=== PATIENT | female | born 1975 | race African-American/Black ===

== ENCOUNTER 2019-09-05 13:47 | Inpatient (IN) | payer BC, MEDICAID ==
[~2019-09-05] VITALS: Ht 160 cm; Wt 75.0 kg
[~2019-09-05 13:47] MED LIST: Zosyn 4.5gm in NS 110ml q8h IVPB SCH
[2019-09-05 14:00] VITALS: BP 118/68
--- NOTE | 2019-09-05 14:00 | NUR ---
ED Nurse Note: Pt ambulated to ED d/t chills and fever. Pt denies any cough/sob/sore throat. Pt is AOx4, calm and cooperative. Latest temp at 103F. Placed on bed, safety measures in placed. Droplet isolation precautions in placed. IV site established; patent and kempt, blood and urine specimen collected, sent to labs. Will continue to monitor.
--- NOTE | 2019-09-05 14:10 | NUR ---
ED Nurse Note: ERPA at bedside.
[2019-09-05 14:48] LABS: APPEARANCE,URINE SLIGHTLY CLOUDY; BILIRUBIN, URINE 1+ (NEGATIVE); COLOR,URINE BROWN; GLUCOSE, URINE (UA) NEGATIVE (NEGATIVE); KETONES,URINE 3+ (NEGATIVE); LEUKOCYTE ESTERASE ,URINE 3+ (NEGATIVE); NITRITE,URINE NEGATIVE (NEGATIVE); PH,URINE 5 (4.5-8.0); PROTEIN,URINE 3+ (NEGATIVE); UROBILINOGEN,URINE 1 MG/DL (0.0-1.0)
--- NOTE | 2019-09-05 14:48 | Emergency Room Report ---
History of Present Illness General Chief Complaint: Fever Source: Patient (Velma Esqueda) Present Illness HPI 44-year-old female presents to the emergency department sent by her heart nurse for evaluation of tachycardia, fever and abnormal vaginal bleeding. Patient status post myomectomy and uterine artery embolization on August 07, and Myomectomy last Monday. Pt. reports moderate amount of 8/10 in severity suprapubic pain after both procedures which was not relieved by prescribed medications. Patient reports that she was unable to tolerate follow -up MRI and her doctor ordered her a ultrasound for which he does not have the results for yet. Patient states that today she began having moderate chills. She reports intermittent 5/10 in severity low back pain as well. She denies nausea, vomiting, constipation or diarrhea. She denies vaginal d/c. She states she also started her period right after initial procedure. She denies . Dysuria, hematuria or urinary frequency. (Velma Esqueda) Allergies: Coded Allergies: FLUCONAZOLE (Verified Allergy, Unknown, Rash, 09/05/19) COVID-19 Screening Contact w/high risk pt: No Recent Travel to affected area: No Experienced COVID-19 symptoms?: Yes COVID-19 symptoms experienced: Fever (T>100.4F or >38C) (Velma Esqueda) Patient History Past Medical History: see triage record Past Surgical History: none Pertinent Family History: none Last Menstrual Period: JULY 2019 Now: No Reviewed Nursing Documentation: PMH: Agreed; PSxH: Agreed (Velma Esqueda) Nursing Documentation-PMH Past Medical History: No History, Except For (Velma Esqueda) Review of Systems All Other Systems: negative except mentioned in HPI (Velma Esqueda) Physical Exam Vital Signs Date Time Temp Pulse Resp B/P (MAP) Pulse Ox O2 Delivery O2 Flow Rate FiO2 09/05/19 13:49 102.9 130 18 118/68 (85) 98 Room Air Sp02 EP Interpretation: reviewed, normal General Appearance: no apparent distress, alert, GCS 15, non-toxic Head: normocephalic, atraumatic Eyes: bilateral eye normal inspection, bilateral eye PERRL ENT: hearing grossly normal, normal voice Neck: full range of motion Respiratory: chest non-tender, lungs clear, normal breath sounds, speaking full sentences Cardiovascular #1: regular rate, rhythm Gastrointestinal: normal bowel sounds, soft, distended, tenderness - mild suprapubic and mid lower abdominal TTP. Rectal: deferred Genitourinary: normal inspection, no CVA tenderness Musculoskeletal: back normal, normal range of motion, gait/station normal, non- tender Neurologic: alert, motor strength/tone normal, oriented x3, sensory intact, responsive, speech normal Psychiatric: judgement/insight normal Skin: no rash, normal color (Velma Esqueda) Medical Decision Making PA Attestation Dr. Gracia is my supervising Physician whom patient management has been discussed with. (Velma Esqueda) Diagnostic Impression: Primary Impression: Acute febrile illness Additional Impression: Urinary tract infection Qualified Codes: N30.01 - Acute cystitis with hematuria ER Course 44-year-old female presents to the emergency department sent by her heart nurse for evaluation of tachycardia, fever and abnormal vaginal bleeding. Patient status post myomectomy and uterine artery embolization on August 07, and Myomectomy last Monday. Pt. reports moderate amount of 8/10 in severity suprapubic pain after both procedures which was not relieved by prescribed medications. Patient reports that she was unable to tolerate follow -up MRI and her doctor ordered her a ultrasound for which he does not have the results for yet. Patient states that today she began having moderate chills. She reports intermittent 5/10 in severity low back pain as well. She denies nausea, vomiting, constipation or diarrhea. She denies vaginal d/c. She states she also started her period right after initial procedure. She denies . Dysuria, hematuria or urinary frequency. Ddx considered but are not limited to post-op infection, Diverticulitis, acute appy, diarrhea,UC, PUD, GE, pancreatitis, gallstone, ovarian torsion, ectopic , PID tubo-ovarian abscess just to name a few. Vital signs: are WNL, pt. is afebrile H&PE are most consistent with possible post-op infection. ORDERS: -CBC: wbc's of 11.1 - CMP, LIPASE:Unremarkable -UA: positive for UTI -URINE HCG: negative -blood cultures: Pending -Urine Culture:Pending -COVID-19: Pending -CT abdomen and Pelvis with contrast:Abnormal -CXR: WNL ED INTERVENTIONS: -1 Liter NS -2.37g Zosyn IV DISPOSITION: at this time pt. will be admitted to Dr. Goel for Acute febrile illness. Dr. Goel agreed to admit the pt. and to continue pt. care management. Labs Test 09/05/19 14:30 White Blood Count 11.8 K/UL (4.8-10.8) Red Blood Count 4.17 M/UL (4.20-5.40) Hemoglobin 11.8 G/DL (12.0-16.0) Hematocrit 36.3 % (37.0-47.0) Mean Corpuscular Volume 87 FL (80-99) Mean Corpuscular Hemoglobin 28.3 PG (27.0-31.0) Mean Corpuscular Hemoglobin Concent 32.5 G/DL (32.0-36.0) Red Cell Distribution Width 15.8 % (11.6-14.8) Platelet Count 366 K/UL (150-450) Mean Platelet Volume 4.8 FL (6.5-10.1) Neutrophils (%) (Auto) % (45.0-75.0) Lymphocytes (%) (Auto) % (20.0-45.0) Monocytes (%) (Auto) % (1.0-10.0) Eosinophils (%) (Auto) % (0.0-3.0) Basophils (%) (Auto) % (0.0-2.0) Differential Total Cells Counted 100 Neutrophils % (Manual) 90 % (45-75) Lymphocytes % (Manual) 6 % (20-45) Monocytes % (Manual) 3 % (1-10) Eosinophils % (Manual) 1 % (0-3) Basophils % (Manual) 0 % (0-2) Band Neutrophils 0 % (0-8) Platelet Estimate Adequate Platelet Morphology Normal Anisocytosis 1+ Urine Color Brown Urine Appearance Slightly cloudy Urine pH 5 (4.5-8.0) Urine Specific [place] 1.020 (1.005-1.035) Urine Protein 3+ (NEGATIVE) Urine Glucose (UA) Negative (NEGATIVE) Urine Ketones 3+ (NEGATIVE) Urine Blood 5+ (NEGATIVE) Urine Nitrite Negative (NEGATIVE) Urine Bilirubin 1+ (NEGATIVE) Urine Ictotest Negative (NEGATIVE) Urine Urobilinogen 1 MG/DL (0.0-1.0) Urine Leukocyte Esterase 3+ (NEGATIVE) Urine RBC Tntc /HPF (0 - 2) Urine WBC Tntc /HPF (0 - 2) Urine Squamous Epithelial Cells Few /LPF (NONE/OCC) Urine Bacteria Moderate /HPF (NONE) Sodium Level 139 MMOL/L (136-145) Potassium Level 3.4 MMOL/L (3.5-5.1) Chloride Level 101 MMOL/L (98-107) Carbon Dioxide Level 23 MMOL/L (21-32) Anion Gap 15 mmol/L (5-15) Blood Urea Nitrogen 6 mg/dL (7-18) Creatinine 0.9 MG/DL (0.55-1.30) Estimat Glomerular Filtration Rate > 60 mL/min (>60) Glucose Level 93 MG/DL (74-106) Calcium Level 8.9 MG/DL (8.5-10.1) Total Bilirubin 0.7 MG/DL (0.2-1.0) Aspartate Amino Transf (AST/SGOT) 35 U/L (15-37) Alanine Aminotransferase (ALT/SGPT) 31 U/L (12-78) Alkaline Phosphatase 91 U/L (46-116) Total Protein 8.1 G/DL (6.4-8.2) Albumin 2.7 G/DL (3.4-5.0) Globulin 5.4 g/dL Albumin/Globulin Ratio 0.5 (1.0-2.7) (Velma Esqueda) ER Course Patient was discussed with Dr. Zheng as well as with Dr. Goel. Patient will be admitted to the hospital for further management of acute febrile illness urinary tract infection. Patient does not appear to be significantly likely to have coronavirus infection however sample was sent. Labs Test 09/05/19 14:30 White Blood Count 11.8 K/UL (4.8-10.8) Red Blood Count 4.17 M/UL (4.20-5.40) Hemoglobin 11.8 G/DL (12.0-16.0) Hematocrit 36.3 % (37.0-47.0) Mean Corpuscular Volume 87 FL (80-99) Mean Corpuscular Hemoglobin 28.3 PG (27.0-31.0) Mean Corpuscular Hemoglobin Concent 32.5 G/DL (32.0-36.0) Red Cell Distribution Width 15.8 % (11.6-14.8) Platelet Count 366 K/UL (150-450) Mean Platelet Volume 4.8 FL (6.5-10.1) Neutrophils (%) (Auto) % (45.0-75.0) Lymphocytes (%) (Auto) % (20.0-45.0) Monocytes (%) (Auto) % (1.0-10.0) Eosinophils (%) (Auto) % (0.0-3.0) Basophils (%) (Auto) % (0.0-2.0) Differential Total Cells Counted 100 Neutrophils % (Manual) 90 % (45-75) Lymphocytes % (Manual) 6 % (20-45) Monocytes % (Manual) 3 % (1-10) Eosinophils % (Manual) 1 % (0-3) Basophils % (Manual) 0 % (0-2) Band Neutrophils 0 % (0-8) Platelet Estimate Adequate Platelet Morphology Normal Anisocytosis 1+ Urine Color Brown Urine Appearance Slightly cloudy Urine pH 5 (4.5-8.0) Urine Specific [place] 1.020 (1.005-1.035) Urine Protein 3+ (NEGATIVE) Urine Glucose (UA) Negative (NEGATIVE) Urine Ketones 3+ (NEGATIVE) Urine Blood 5+ (NEGATIVE) Urine Nitrite Negative (NEGATIVE) Urine Bilirubin 1+ (NEGATIVE) Urine Ictotest Negative (NEGATIVE) Urine Urobilinogen 1 MG/DL (0.0-1.0) Urine Leukocyte Esterase 3+ (NEGATIVE) Urine RBC Tntc /HPF (0 - 2) Urine WBC Tntc /HPF (0 - 2) Urine Squamous Epithelial Cells Few /LPF (NONE/OCC) Urine Bacteria Moderate /HPF (NONE) Sodium Level 139 MMOL/L (136-145) Potassium Level 3.4 MMOL/L (3.5-5.1) Chloride Level 101 MMOL/L (98-107) Carbon Dioxide Level 23 MMOL/L (21-32) Anion Gap 15 mmol/L (5-15) Blood Urea Nitrogen 6 mg/dL (7-18) Creatinine 0.9 MG/DL (0.55-1.30) Estimat Glomerular Filtration Rate > 60 mL/min (>60) Glucose Level 93 MG/DL (74-106) Calcium Level 8.9 MG/DL (8.5-10.1) Total Bilirubin 0.7 MG/DL (0.2-1.0) Aspartate Amino Transf (AST/SGOT) 35 U/L (15-37) Alanine Aminotransferase (ALT/SGPT) 31 U/L (12-78) Alkaline Phosphatase 91 U/L (46-116) Total Protein 8.1 G/DL (6.4-8.2) Albumin 2.7 G/DL (3.4-5.0) Globulin 5.4 g/dL Albumin/Globulin Ratio 0.5 (1.0-2.7) (Tim Gracia MD) EKG Diagnostic Results EP Interpretation: Dr. Gracia Rate: tachycardiac - 128 Rhythm: NSR ST Segments: no acute changes ASA given to the pt in ED: No PA Scribe Text This Interpretation was scribed by WILLAM Esqueda. (Velma Esqueda) Chest X-Ray Diagnostic Results Chest X-Ray Diagnostic Results : Chest X-Ray Ordered: Yes # of Views/Limited/Complete: 1 View Indication: Shortness of Breath EP Interpretation: Yes PA Xray: Interpretation reviewed, by supervising MD, and agrees with findings. Interpretation: no consolidation, no effusion, no pneumothorax, no acute cardiopulmonary disease Impression: No acute disease Electronically Signed by: Velma Esqueda PA-C (Velma Esqueda) CT/MRI/US Diagnostic Results CT/MRI/US Diagnostic Results : Imaging Test Ordered: CT ABdomen and Pelvis W. Contrast Impression "Impression: Enlarged uterus with multiple large fibroids. Small amount gas within one of the largest fibroids is nonspecific and is most likely an expected finding given history of uterine fibroid embolization one month prior. Correlate with clinical findings as regards the possibility of endometritis or bile myoma Masslike opacity in the left side of the pelvis, may represent an unusually focally redundant sigmoid but could also represent a mass. Consider comparison with any prior outside imaging that may be available. Pelvic sonography may be useful to clarify Prominent pelvic and retroperitoneal lymph nodes, nonspecific Limited assessment of the GI tract, due to lack of enteric contrast demonstration. Fluid within the colon and small bowel could indicate a component of enteritis or diarrheal illness Findings as noted, including probable left renal cyst, degenerative spondylosis Findings discussed by phone with nurse practitioner eVlma in the emergency room at the time of interpretation" --- per official radiology report- Please see report for specific details. (Velma Esqueda) Last Vital Signs Date Time Temp Pulse Resp B/P (MAP) Pulse Ox O2 Delivery O2 Flow Rate FiO2 09/05/19 13:49 102.9 130 18 118/68 (85) 98 Room Air (Velma Esqueda) Status: unchanged (Tim Gracia MD) Disposition: ADMITTED INPATIENT Condition: Serious Velma Esqueda Sep 05, 2019 14:48 Tim Gracia MD Sep 05, 2019 20:21
[2019-09-05 14:50] LABS: HEMATOCRIT 36.3 % (37.0-47.0); HEMOGLOBIN 11.8 G/DL (12.0-16.0); MEAN CORPUSCULAR VOLUME 87 FL (80-99); PLATELET COUNT 366 K/UL (150-450); RED BLOOD COUNT 4.17 M/UL (4.20-5.40); RED CELL DISTRIBUTION WIDTH 15.8 % (11.6-14.8); WHITE BLOOD COUNT 11.8 K/UL (4.8-10.8)
[2019-09-05 15:12] LABS: ANION GAP 15 mmol/L (5-15); BLOOD UREA NITROGEN 6 mg/dL (7-18); CALCIUM 8.9 MG/DL (8.5-10.1); CARBON DIOXIDE 23 MMOL/L (21-32); CHLORIDE 101 MMOL/L (98-107); CREATININE 0.9 MG/DL (0.55-1.30); POTASSIUM 3.4 MMOL/L (3.5-5.1); SODIUM 139 MMOL/L (136-145)
[2019-09-05] MEDS ORDERED: Acetaminophen 500mg (ES) tab ORAL ONE (15:15)
[2019-09-05] MEDS ORDERED: Omnipaque-300 100ml vial INJ PRN (15:15)
[2019-09-05] MEDS ORDERED: Piperacillin/Tazobactam 2.25 GM in NS 110 ML IVPB ONE (15:15)
[2019-09-05 15:17] LABS: ALANINE AMINOTRANSFERASE 31 U/L (12-78); ALBUMIN 2.7 G/DL (3.4-5.0); ALBUMIN/GLOBULIN RATIO 0.5 (1.0-2.7); ALKALINE PHOSPHATASE 91 U/L (46-116); ASPARTATE AMINO TRANSFERASE 35 U/L (15-37); BILIRUBIN,TOTAL 0.7 MG/DL (0.2-1.0)
--- NOTE | 2019-09-05 15:55 | NUR ---
ED Nurse Note: Covid19 swabs collected, sent to labs.
--- NOTE | 2019-09-05 16:38 | NUR ---
ED Nurse Note: Dr. Flanagan at bedside.
[2019-09-05 17:04] VITALS: BP 118/68
--- NOTE | 2019-09-05 17:29 | Diagnostic Imaging Report ---
Clinical Indication: Abdominal pain, tachycardia, fever and vaginal bleeding. History myomectomy and uterine fibroid embolization one month ago Technique: No oral contrast utilized, per emergency room physician request IV administration nonionic contrast. Venous phase spiral acquisition obtained through the abdomen and pelvis. Multiplanar reconstructions were generated. Total dose length product 341 mGycm. CTDIvol(s) 6.7 mGy. Dose reduction achieved using automated exposure control Comparison: none Findings: The uterus is markedly enlarged, contains multiple low-attenuation lesions consistent with fibroids. Gas bubbles are seen within one of the 2 largest fibroids, and a few gas bubbles are seen within what is probably the endometrial space. The myometrium enhances normally. There is no free cul-de-sac fluid. The lack of enteric contrast limits assessment of the GI tract. Distal esophagus, stomach, duodenum are unremarkable. The proximal colon is fluid-filled. Small bowel loops are upper limits of normal in caliber and several are fluid-filled. No small bowel distention. No free or loculated intraperitoneal gas or fluid is evident. The liver, gallbladder, bile ducts, pancreas, spleen, adrenals, right kidney are unremarkable. Left kidney demonstrates a subcentimeter low-attenuation lesion which is too small to characterize. There are prominent retroperitoneal lymph nodes, measuring up to 1.9 cm long axis dimension. There are also prominent pelvic lymph nodes, predominantly on the left. In the left side of the pelvis, there is a masslike opacity which measures 5 x 3.4 cm. This is very closely related to the sigmoid colon and could just represent an unusually focally redundant sigmoid, but the possibility that this represents a mass should be considered, particularly in view of the prominent nodes The included lung bases are clear. The bones are unremarkable except for degenerative changes of the lumbosacral junction.. Impression: Enlarged uterus with multiple large fibroids. Small amount gas within one of the largest fibroids is nonspecific and is most likely an expected finding given history of uterine fibroid embolization one month prior. Correlate with clinical findings as regards the possibility of endometritis or bile myoma Masslike opacity in the left side of the pelvis, may represent an unusually focally redundant sigmoid but could also represent a mass. Consider comparison with any prior outside imaging that may be available. Pelvic sonography may be useful to clarify Prominent pelvic and retroperitoneal lymph nodes, nonspecific Limited assessment of the GI tract, due to lack of enteric contrast demonstration. Fluid within the colon and small bowel could indicate a component of enteritis or diarrheal illness Findings as noted, including probable left renal cyst, degenerative spondylosis Findings discussed by phone with nurse practitioner Velma in the emergency room at the time of interpretation The CT scanner at [facility] is accredited by the [employer] and the scans are performed using protocols designed to limit radiation exposure to as low as reasonably achievable to attain images of sufficient resolution adequate for diagnostic evaluation.
--- NOTE | 2019-09-05 17:36 | Diagnostic Imaging Report ---
Indication: Shortness of breath and fever Technique: One view of the chest Comparison: none Findings: Lungs and pleural spaces are clear. Heart size is normal. Impression: No acute process
--- NOTE | 2019-09-05 17:53 | NUR ---
ED Nurse Note: Pt on bed, VSS, on RA, NAD noted.
--- NOTE | 2019-09-05 19:09 | NUR ---
ED Nurse Note: Hand-off given to Paolo JAIMES for continuity of care.
--- NOTE | 2019-09-05 19:10 | NUR ---
ED Nurse Note: Received report from Kitty JAIMES. Pt alert and oriented x4, verbally responisve. Not in any distress. Safety a nd comfort provided. Will cont to monitor.
[2019-09-05 19:11] VITALS: BP 115/69
[2019-09-05 19:33] VITALS: BP 109/68
[2019-09-05] MEDS ORDERED: METHOTREXATE2.5 MG PO (21:20)
--- NOTE | 2019-09-05 21:21 | NUR ---
ED Nurse Note: Report given to Leora JAIMES.
--- NOTE | 2019-09-05 21:30 | NUR ---
NURSE NOTES: Report received from Brenda JAIMES. Patient brought to unit via stretcher. Patient safely transfer to bed. Patient noted to have a temperature on 100.6 and a heart rate of 129 BPM. Patient presented to ED in this status. Patient is awake and alert x 4. Patient is able to make needs known. Gordon RN witness patient ambulate, steady on feet. Patient on room air. Denies chest pain and shortness of breath. Denies pain at this time. No complaints at this time. Patient placed on droplet and contact precautions due to covid 19 rule out. Covid 19 test obtained in ED, swabs currently pending. Will contact Doctor Manasa.
[2019-09-05 21:35] VITALS: BP 113/70
--- NOTE | 2019-09-05 21:35 | NUR ---
TRANSFER TO FLOOR: Patient transferred to [facility] unit. Report given to Leora JAIMES. Pt alert and oriented x4, verbally responsive. Ambulatory. Sinus rhythm. No acute distress. IV line on left AC 20g patent and intact. No skin issues. Droplet isolation observed. All belongings sent with the patient.
[2019-09-05 21:46] VITALS: BP 110/75
[2019-09-06] VITALS: BP 125/74
[2019-09-06] MEDS: Azithromycin 500 MG in D5W 275 ML IV SCH (00:18)
--- NOTE | 2019-09-06 01:58 | NUR ---
NURSE NOTES: Paged Doctor Sachin regarding oral temperature of 104.3. Tylenol was administered, patient found to still be febrile at 103.5. Charge nurse Adrian aware. Ice packs given to patient. Await for call back.
--- NOTE | 2019-09-06 02:14 | NUR ---
NURSE NOTES: Received call back from Doctor Sachin. Aware of patients elevated temperature. Informed Gordon JAIMES to continue to administer PRN Tylenol was ordered and to continue to apply ice packs. Gave verbal orders for blood cultures and sputum sample.
[2019-09-06 04:00] VITALS: BP 131/73
[2019-09-06 07:05] LABS: HEMATOCRIT 34.4 % (37.0-47.0); HEMOGLOBIN 11.2 G/DL (12.0-16.0); MEAN CORPUSCULAR VOLUME 86 FL (80-99); PLATELET COUNT 361 K/UL (150-450); RED BLOOD COUNT 3.99 M/UL (4.20-5.40); RED CELL DISTRIBUTION WIDTH 15.8 % (11.6-14.8); WHITE BLOOD COUNT 12.7 K/UL (4.8-10.8)
--- NOTE | 2019-09-06 07:25 | NUR ---
HAND-OFF: Report given to Francy JAIMES.
--- NOTE | 2019-09-06 07:33 | NUR ---
NURSE NOTES: Received report from FIONA Leyva. Patient sleeping. On room air, no signs of distress or labored breathing. IV intact, patent, and infusing fluids. Bed in lowest position with call light in reach. Will continue to monitor.
[2019-09-06 08:00] VITALS: BP 118/69
[2019-09-06] MEDS ORDERED: Piperacillin/Tazobactam 3.375 GM in NS 110 ML IVPB SCH (09:00)
--- NOTE | 2019-09-06 09:39 | NUR ---
*-* NO INSURANCE INFORMATION IN THE BAR UNABLE TO SEND CLINICALS OR REVIEWS *-*
[2019-09-06] MEDS: Piperacillin/Tazobactam 4.5 GM in NS 110 ML IVPB SCH ×2 (10:04→17:33)
[2019-09-06] MEDS: Heparin 5000 units/ml inj SUBQ SCH ×2 (10:05→20:24)
--- NOTE | 2019-09-06 11:54 | NUR ---
CASE MANAGEMENT: INITIAL REVIEW 09/05/2019 44 YO F PRESENTED TO ED FROM HOME CC: FEVER PMHx: myomectomy and uterine artery embolization SI:ACUTE FEBRILE ILLNESS. Acute cystitis with hematuria. t 102.9 HR 130 RR 18 B/P 118/68 SATS 98% ON RA LABS: WBC 11.8 K 3.4 BUN 6 CRP 5.6 IS: NS BOLUS X1 TYLENOL PO X1 ZOSYN IV X2 CXR Impression: No acute disease CT A/P "Impression: Enlarged uterus with multiple large fibroids. Small amount gas within one of the largest fibroids is nonspecific and is most likely an expected finding given history of uterine fibroid embolization one month prior. PATIENT ADMITTED TO MED/SURG 09/05/2019 @ 1605 DCP: HOME CASE MANAGEMENT: REVIEW 09/06/2019 SI:ACUTE FEBRILE ILLNESS. Acute cystitis with hematuria. T 104.2 HR 128 RR 20 B/P 125/74 SATS 97% ON RA LABS: WBC 12.7 DDIMER 1.47 IS:NS @ 100 ML/HR AZITHROMYCIN IV Q24H ZOSYN IV Q8H MED/SURG PLAN OF CARE: BCx SPUTUM CX COVID TESTING URINE CX
[2019-09-06 12:00] VITALS: BP 113/70
--- NOTE | 2019-09-06 14:40 | NUR ---
*-* INSURANCE *-* ALL CLINICALS AND REVIEWS HAVE BEEN FAXED TO: PAUL FAX ALL CLINICALS TO [phone]
--- NOTE | 2019-09-06 15:52 | NUR ---
NURSE NOTES: Received blood culture result from Kimberley from lab. Blood culture showing 1 bottle gram neg rods[address] Goel aware, no new orders. Charge nurse aware.
[2019-09-06 16:00] VITALS: BP 129/75
--- NOTE | 2019-09-06 16:11 | History and Physical ---
Susan Morales JAVA J2EE APPLICATION DEVELOPER 09/06/19 1611: History of Present Illness General Date patient seen: Sep 06, 2019 Time patient seen: 09:39 Reason for Hospitalization: Fever Present Illness HPI 44 years old female with past medical history of uterine fibroids, status post uterine artery embolization status post myomectomy and hysteroscopy, was sent to ER by her network cable installer for evaluation due to fever tachycardia and abdominal abnormal vaginal bleeding. Myomectomy was done last week. Patient was unable to tolerate MRI her doctor ordered ultrasound but still no results. Patient reported chills and fever and intermittent 5 out of 10 low back pain. She denied nausea vomiting constipation she denied vaginal discharge reported nausea 1 episode 12 nonbloody nonbilious vomiting earlier today of diarrhea. Patient gets here. Sometimes. She reported some dysuria but no hematuria. Upon evaluation vital signs reveal fever 102.9 tachycardia with heart rate 130 pulse oximetry was stable on room air laboratory work-up revealed leukocytosis WBC 11.8, hemoglobin 11.8 hematocrit 26.3 platelet count 366. Neutrophils 90% Potassium 3.4 otherwise stable renal parameters electrolytes lactic acid 0.7. CRP 5.6. Serotonin level pending urinalysis revealed pyuria moderate bacteria + 3 leukocyte esterase 1+3 protein. Chest x-ray demonstrated no acute cardiopulmonary pathology. CT of the abdomen and pelvis revealed enlarged uterus with multiple large fibroids. Most likely opacity in the left side of the pelvis representing unusually focally redundant sigmoid but could also represent an mass consider comparison with any prior outside imaging. Prominent pelvic and retroperitoneal lymph nodes nonspecific. Fluid within the colon and small bowel could indicate a component of enteritis or diarrheal illness. In emergency department patient pancultured started on empiric antibiotics urine test was negative received 1 L of fluid and admitted for further management rheumatoid arthritis anemia, Allergies: Coded Allergies: FLUCONAZOLE (Verified Allergy, Unknown, Rash, 09/05/19) COVID-19 Screening Contact w/high risk pt: No Recent Travel to affected area: No Experienced COVID-19 symptoms?: Yes COVID-19 symptoms experienced: Fever (T>100.4F or >38C), Flu-Like Symptoms Medication History Miscellaneous Medications Methotrexate Sodium* (Methotrexate*), 2.5 MG PO, (Reported) Patient History History Provided By: Patient Healthcare decision maker Resuscitation status Full Code Advanced Directive on File Past Medical/Surgical History Past Medical/Surgical History: (1) History of myomectomy (2) Status post embolization of uterine artery (3) Uterine fibroid Review of Systems Constitutional: Reports: chills, fever Eye: Reports: no symptoms ENT: Reports: no symptoms Respiratory: Reports: no symptoms Cardiovascular: Reports: no symptoms Gastrointestinal: Reports: no symptoms Genitourinary: Reports: see HPI Musculoskeletal: Reports: no symptoms, other - hx of RA Skin: Reports: no symptoms Neurological: Reports: no symptoms Endocrine: Reports: no symptoms Hematologic/Lymphatic: Reports: anemia Physical Exam General Appearance: WD/WN, no apparent distress, alert Lines, tubes and drains: peripheral HEENT: normocephalic, atraumatic, anicteric, mucous membranes moist, PERRL Neck: supple, normal inspection Respiratory/Chest: chest wall non-tender, lungs clear, no respiratory distress Cardiovascular/Chest: normal rate, regular rhythm Abdomen: normal bowel sounds, soft, other - mild suprapubic tenderness, no rebound, no guarding Extremities: normal range of motion, no calf tenderness, normal capillary refill Skin Exam: normal pigmentation, warm/dry Neurologic: circulation sales representative II-XII grossly normal, no motor/sensory deficits, alert, oriented x 3 Musculoskeletal: normal muscle bulk Last 24 Hour Vital Signs Date Time Temp Pulse Resp B/P (MAP) Pulse Ox O2 Delivery O2 Flow Rate FiO2 09/06/19 06:55 99.7 09/06/19 06:50 99.7 09/06/19 04:00 103.8 118 20 131/73 (92) 97 09/06/19 00:00 104.2 128 20 125/74 (91) 97 09/05/19 23:18 Room Air 09/05/19 21:46 100.6 129 20 110/75 (87) 96 09/05/19 21:35 100.0 85 19 113/70 99 Room Air 09/05/19 21:35 100.0 85 19 113/70 99 Room Air 09/05/19 19:33 100.0 78 19 109/68 95 Room Air 09/05/19 19:11 102.9 98 20 115/69 100 Room Air 09/05/19 17:04 102.9 100 20 118/68 99 Room Air Intake and Output 09/05/19 09/06/19 19:00 07:00 Intake Total 1210 ml 1255 ml Output Total 60 ml Balance 1210 ml 1195 ml Intake IV Total 1210 ml 775 ml Other 480 ml Output Emesis 60 ml # Voids 1 2 Laboratory Tests Test 09/06/19 05:10 White Blood Count 12.7 K/UL (4.8-10.8) H Red Blood Count 3.99 M/UL (4.20-5.40) L Hemoglobin 11.2 G/DL (12.0-16.0) L Hematocrit 34.4 % (37.0-47.0) L Mean Corpuscular Volume 86 FL (80-99) Mean Corpuscular Hemoglobin 28.0 PG (27.0-31.0) Mean Corpuscular Hemoglobin Concent 32.5 G/DL (32.0-36.0) Red Cell Distribution Width 15.8 % (11.6-14.8) H Platelet Count 361 K/UL (150-450) Mean Platelet Volume 4.9 FL (6.5-10.1) L Neutrophils (%) (Auto) % (45.0-75.0) Lymphocytes (%) (Auto) % (20.0-45.0) Monocytes (%) (Auto) % (1.0-10.0) Eosinophils (%) (Auto) % (0.0-3.0) Basophils (%) (Auto) % (0.0-2.0) Differential Total Cells Counted 100 Neutrophils % (Manual) 88 % (45-75) H Lymphocytes % (Manual) 6 % (20-45) L Monocytes % (Manual) 6 % (1-10) Eosinophils % (Manual) 0 % (0-3) Basophils % (Manual) 0 % (0-2) Band Neutrophils 0 % (0-8) Platelet Estimate Adequate Platelet Morphology Normal Red Blood Cell Morphology Normal D-Dimer 1.47 mg/L FEU (0.00-0.49) H Lactic Acid Level 0.70 mmol/L (0.4-2.0) C-Reactive Protein, Quantitative 5.6 mg/dL (0.00-0.90) H Serotonin Pending Height (Feet): 5 Height (Inches): 3.00 Weight (Pounds): 164 Medications Current Medications Medications (Trade) Dose Ordered Sig/Mitchel Route PRN Reason Start Time Stop Time Status Last Admin Dose Admin Acetaminophen (Tylenol) 650 mg Q6H PRN ORAL Temp >100.5 09/05/19 23:00 10/05/19 22:59 09/06/19 06:20 Acetaminophen/ Hydrocodone Bitart ([place] 5/325) 1 tab Q6H PRN ORAL For Pain 09/05/19 23:00 09/12/19 22:59 Azithromycin 500 mg/Dextrose 275 ml @ 275 mls/hr Q24HRS IV 09/06/19 00:00 09/12/19 00:59 09/06/19 00:18 Barium Sulfate (Readi-Cat 2) 450 ml NOW PRN ORAL Radiology Procedure 09/05/19 15:15 09/07/19 15:02 Heparin Sodium (Porcine) (Heparin 5000 units/ml) 5,000 units EVERY 12 HOURS SUBQ 09/06/19 09:00 10/21/19 08:59 09/06/19 10:05 Iohexol (OMNIPAQUE-300 100ml) 100 ml NOW PRN INJ Radiology Procedure 09/05/19 15:15 09/07/19 15:02 Piperacillin Sod/ Tazobactam Sod 4.5 gm/Sodium Chloride 110 ml @ 27.5 mls/hr Q8H IVPB 09/06/19 09:00 09/12/19 00:59 09/06/19 10:04 Sodium Chloride 1,000 ml @ 100 mls/hr Q10H IV 09/06/19 03:30 10/05/19 22:59 09/06/19 03:46 Assessment/Plan Assessment/Plan: ASSESSMENT 1. Acute febrile illness 2 Sepsis (POA) with GN bacteremia ( due to UTI) 3. GN UTI 4. Sinus tachycardia -resolved 5. Suspected CoVID19 infection 6. Symptomatic uterine fibroids with hx of recent myomectomy, and prior uterine artery emboliZation 7. Nausea, vomiting and diarrhea , possible gastroenteritis 8. Anemia 9. Rheumatoid arthritis 10. Mild hypokalemia [facility] floor fup with REYNA-COV-2 by PCR keep on isolation IVF empiric abx ( Zosyn, Flagyl) fup with cx : BCX + GNR probably due to UTI UCX +GNB ST likely due to fever and possible mild dehydration -resolved ETHNIC STUDIES PROFESSOR consulted, compare results of CT A/P with prior imaging pain management monitor HH with goal to keep Hgb above 7 DVT GI prophylaxis a/emetic prn, monitor for GI symptoms resolution replace K, check K and mg in am case discussed and evaluated by supervising physician Mckay Goel MD 09/06/19 1792: History of Present Illness General Reason for Hospitalization: Fever Present Illness Allergies: Coded Allergies: FLUCONAZOLE (Verified Allergy, Unknown, Rash, 09/05/19) Medication History Miscellaneous Medications Methotrexate Sodium* (Methotrexate*), 2.5 MG PO, (Reported) Assessment/Plan Assessment/Plan: Patient seen and examined, d/w RN and team, agree with plan as outlined about by JAVA J2EE APPLICATION DEVELOPER, reflects out joint assessment. GNR UTI and BSI, continue Zosyn/Azithro, F/U Cx's Elevated D-dimer, F/U Duplex F/U COVID[address] Zheng, imaging reviewed Susan Morales NP Sep 06, 2019 16:11 Mckay Goel MD Sep 06, 2019 16:58
--- NOTE | 2019-09-06 19:20 | NUR ---
NURSE NOTES: Received pt from FIONA Sen. AAO x 4, on room air. Ambulatory, able to make needs known. IV intact and running IVF. Sputum collected. Isolation maintained. No acute distress noted. Bed locked, lowest position, alarm on, side rails up, call light within reach.
--- NOTE | 2019-09-06 19:30 | NUR ---
HAND-OFF: Report given to FIONA eRynoso.
[2019-09-06 20:00] VITALS: BP 130/77
[2019-09-07] VITALS: BP 128/77
[2019-09-07] MEDS: Azithromycin 500 MG in D5W 275 ML IV SCH (00:18)
[2019-09-07] MEDS: Piperacillin/Tazobactam 4.5 GM in NS 110 ML IVPB SCH ×3 (00:54→17:32)
[2019-09-07 04:00] VITALS: BP 138/77
--- NOTE | 2019-09-07 07:22 | NUR ---
NURSE NOTES: Received report from FIONA Reynoso. Patient A&Ox4. On room air, no signs of distress or labored breathing. IV intact, patent, and infusing IV fluids. Bed in lowest position with call light in reach. Will continue with plan of care.
--- NOTE | 2019-09-07 07:28 | NUR ---
HAND-OFF: Report given to FIONA Sen.
[2019-09-07 07:41] LABS: BASOPHILS % (AUTO) 1.4 % (0.0-2.0); HEMATOCRIT 30.9 % (37.0-47.0); HEMOGLOBIN 10.6 G/DL (12.0-16.0); LYMPHOCYTES % (AUTO) 12.1 % (20.0-45.0); MEAN CORPUSCULAR VOLUME 85 FL (80-99); MONOCYTES % (AUTO) 10.9 % (1.0-10.0); NEUTROPHILS % (AUTO) 74.5 % (45.0-75.0); PLATELET COUNT 287 K/UL (150-450); RED BLOOD COUNT 3.64 M/UL (4.20-5.40); RED CELL DISTRIBUTION WIDTH 15.6 % (11.6-14.8); WHITE BLOOD COUNT 7.8 K/UL (4.8-10.8)
[2019-09-07 07:59] LABS: ANION GAP 11 mmol/L (5-15); BLOOD UREA NITROGEN 4 mg/dL (7-18); CALCIUM 8.5 MG/DL (8.5-10.1); CARBON DIOXIDE 23 MMOL/L (21-32); CHLORIDE 105 MMOL/L (98-107); CREATININE 0.7 MG/DL (0.55-1.30); POTASSIUM 3.4 MMOL/L (3.5-5.1); SODIUM 139 MMOL/L (136-145)
[2019-09-07 08:00] VITALS: BP 126/80
--- NOTE | 2019-09-07 08:36 | General Surgery Progress Note ---
General Surgery-Progress Note Subjective Day of Surgery: september 02 Procedure Performed hysteroscopy Symptoms: improved, tolerating diet, voiding well, passing flatus Objective Last 24 Hour Vital Signs Date Time Temp Pulse Resp B/P (MAP) Pulse Ox O2 Delivery O2 Flow Rate FiO2 09/07/19 04:00 98.6 82 20 138/77 (97) 98 09/07/19 00:00 99.1 84 18 128/77 (94) 98 09/06/19 21:00 Room Air 09/06/19 20:53 99.3 09/06/19 20:00 101.7 100 20 130/77 (94) 97 09/06/19 16:00 99.7 110 18 129/75 (93) 97 09/06/19 12:00 99.2 99 18 113/70 (84) 99 09/06/19 09:00 Room Air I&O Intake and Output 09/06/19 09/07/19 19:00 07:00 Intake Total 480 ml 480 ml Balance 480 ml 480 ml Intake Oral 480 ml 480 ml # Voids 3 2 Dressing: dry Wound: clean Drains: none Cardiovascular: RSR Respiratory: clear Abdomen: soft, flat, scaphoid, tenderness, present bowel sounds Extremities: no edema, no tenderness, no cyanosis Laboratory Tests Test 09/07/19 06:50 White Blood Count 7.8 K/UL (4.8-10.8) Red Blood Count 3.64 M/UL (4.20-5.40) L Hemoglobin 10.6 G/DL (12.0-16.0) L Hematocrit 30.9 % (37.0-47.0) L Mean Corpuscular Volume 85 FL (80-99) Mean Corpuscular Hemoglobin 29.1 PG (27.0-31.0) Mean Corpuscular Hemoglobin Concent 34.3 G/DL (32.0-36.0) Red Cell Distribution Width 15.6 % (11.6-14.8) H Platelet Count 287 K/UL (150-450) Mean Platelet Volume 5.0 FL (6.5-10.1) L Neutrophils (%) (Auto) 74.5 % (45.0-75.0) Lymphocytes (%) (Auto) 12.1 % (20.0-45.0) L Monocytes (%) (Auto) 10.9 % (1.0-10.0) H Eosinophils (%) (Auto) 1.0 % (0.0-3.0) Basophils (%) (Auto) 1.4 % (0.0-2.0) Sodium Level 139 MMOL/L (136-145) Potassium Level 3.4 MMOL/L (3.5-5.1) L Chloride Level 105 MMOL/L (98-107) Carbon Dioxide Level 23 MMOL/L (21-32) Anion Gap 11 mmol/L (5-15) Blood Urea Nitrogen 4 mg/dL (7-18) L Creatinine 0.7 MG/DL (0.55-1.30) Estimat Glomerular Filtration Rate > 60 mL/min (>60) Glucose Level 89 MG/DL (74-106) Calcium Level 8.5 MG/DL (8.5-10.1) Magnesium Level 2.1 MG/DL (1.8-2.4) Imaging ct scan, no signs of abscess, bowel ok Additional Comments blood and urine cultures preliminary report. gram negative rods.wbc down today, temperature curve down. Plan Additional Comments iv iron for anemia. await covid test results for removal from isolation. will consult with monday Kumar Zheng MD Sep 07, 2019 08:36
[2019-09-07] MEDS: Heparin 5000 units/ml inj SUBQ SCH ×2 (09:32→21:00)
--- NOTE | 2019-09-07 10:02 | Pulmonology Progress Note ---
Susan Morales DIRECTOR GLOBAL DEVELOPMENT 09/07/19 1002: Assessment/Plan Assessment/Plan ASSESSMENT 1. Acute febrile illness 2 Sepsis (POA) with GN bacteremia ( due to UTI) 3. GN UTI 4. Sinus tachycardia -resolved 5. Suspected CoVID19 infection 6. Symptomatic uterine fibroids with hx of recent myomectomy, and prior uterine artery emboliZation 7. Nausea, vomiting and diarrhea , possible gastroenteritis 8. Anemia 9. Rheumatoid arthritis 10. Mild hypokalemia [facility] CARE [facility] floor fup with REYNA-COV-2 by PCR pending keep on isolation for now IVF empiric abx - Zosyn fup with cx : BCX + GNR probably due to UTI UCX +GNB ST likely due to fever and possible mild dehydration -resolved DRAPERY HEMMER AUTOMATIC consult noted and appreciated compare results of CT A/P with prior imaging pain management monitor HH with goal to keep Hgb above 7 ; started on IV iroan per DRAPERY HEMMER AUTOMATIC DVT GI prophylaxis a/emetic prn, monitor for GI symptoms resolution no nausea, still diarrhea : gastroenteritis vs SE of Zosyn check stool C dif replace K today, Mg stable case discussed and evaluated by supervising physician Subjective Allergies: Coded Allergies: FLUCONAZOLE (Verified Allergy, Unknown, Rash, 09/05/19) Subjective leukocytosis resolved this am afebrile, fever last night, but less still diarrhea 1-2 episodes loose stool, no n/v/ Objective Last 24 Hour Vital Signs Date Time Temp Pulse Resp B/P (MAP) Pulse Ox O2 Delivery O2 Flow Rate FiO2 09/07/19 04:00 98.6 82 20 138/77 (97) 98 09/07/19 00:00 99.1 84 18 128/77 (94) 98 09/06/19 21:00 Room Air 09/06/19 20:53 99.3 09/06/19 20:00 101.7 100 20 130/77 (94) 97 09/06/19 16:00 99.7 110 18 129/75 (93) 97 09/06/19 12:00 99.2 99 18 113/70 (84) 99 Intake and Output 09/06/19 09/07/19 19:00 07:00 Intake Total 480 ml 480 ml Balance 480 ml 480 ml Intake Oral 480 ml 480 ml # Voids 3 2 Objective General Appearance: WD/WN, no apparent distress, alert Lines, tubes and drains: peripheral HEENT: normocephalic, atraumatic, anicteric, mucous membranes moist, PERRL Neck: supple, normal inspection Respiratory/Chest: chest wall non-tender, lungs clear, no respiratory distress Cardiovascular/Chest: normal rate, regular rhythm Abdomen: normal bowel sounds, soft, other - mild suprapubic tenderness, no rebound, no guarding Extremities: normal range of motion, no calf tenderness, normal capillary refill Skin Exam: normal pigmentation, warm/dry Neurologic: blackjack pit boss II-XII grossly normal, no motor/sensory deficits, alert, oriented x 3 Musculoskeletal: normal muscle bulk Microbiology Date/Time Source Procedure Growth Status 09/05/19 15:20 Blood Blood Culture - Preliminary NO GROWTH AFTER 24 HOURS Resulted 09/05/19 14:50 Blood Blood Culture - Preliminary Gram Negative Aramis Resulted 09/05/19 16:00 Nasopharynx Coronavirus COVID-19 PCR (MAC) - Final Complete 09/05/19 14:30 Urine,Clean Catch Urine Culture - Preliminary Gram Negative Aramis Resulted Laboratory Tests 09/07/19 06:50: White Blood Count 7.8, Red Blood Count 3.64L, Hemoglobin 10.6L, Hematocrit 30.9L , Mean Corpuscular Volume 85, Mean Corpuscular Hemoglobin 29.1, Mean Corpuscular Hemoglobin Concent 34.3, Red Cell Distribution Width 15.6H, Platelet Count 287, Mean Platelet Volume 5.0L, Neutrophils (%) (Auto) 74.5, Lymphocytes (%) (Auto) 12.1L, Monocytes (%) (Auto) 10.9H, Eosinophils (%) (Auto ) 1.0, Basophils (%) (Auto) 1.4, Sodium Level 139, Potassium Level 3.4L, Chloride Level 105, Carbon Dioxide Level 23, Anion Gap 11, Blood Urea Nitrogen 4L, Creatinine 0.7, Estimat Glomerular Filtration Rate > 60, Glucose Level 89, Calcium Level 8.5, Magnesium Level 2.1 Current Medications Medications (Trade) Dose Ordered Sig/Mitchel Route PRN Reason Start Time Stop Time Status Last Admin Dose Admin Acetaminophen (Tylenol) 650 mg Q6H PRN ORAL Temp >100.5 09/05/19 23:00 10/05/19 22:59 09/06/19 20:23 Acetaminophen/ Hydrocodone Bitart ([place] 5/325) 1 tab Q6H PRN ORAL For Pain 09/05/19 23:00 09/12/19 22:59 Azithromycin 500 mg/Dextrose 275 ml @ 275 mls/hr Q24HRS IV 09/06/19 00:00 09/12/19 00:59 09/07/19 00:18 Barium Sulfate (Readi-Cat 2) 450 ml NOW PRN ORAL Radiology Procedure 09/05/19 15:15 09/07/19 15:02 Heparin Sodium (Porcine) (Heparin 5000 units/ml) 5,000 units EVERY 12 HOURS SUBQ 09/06/19 09:00 10/21/19 08:59 09/07/19 09:32 Iohexol (OMNIPAQUE-300 100ml) 100 ml NOW PRN INJ Radiology Procedure 09/05/19 15:15 09/07/19 15:02 Iron Sucrose 100 mg/Sodium Chloride 60 ml @ 240 mls/hr BEDTIME IV 09/07/19 21:00 09/11/19 21:14 Ondansetron HCl (Zofran) 4 mg Q6H PRN IVP Nausea & Vomiting 09/06/19 16:00 10/06/19 15:59 Piperacillin Sod/ Tazobactam Sod 4.5 gm/Sodium Chloride 110 ml @ 27.5 mls/hr Q8H IVPB 09/06/19 09:00 09/12/19 00:59 09/07/19 09:30 Sodium Chloride 1,000 ml @ 100 mls/hr Q10H IV 09/06/19 03:30 10/05/19 22:59 09/07/19 00:17 Mckay Goel MD 09/07/19 1952: Assessment/Plan Assessment/Plan Patient seen and examined, d/w DIRECTOR GLOBAL DEVELOPMENT. Agree with above A&P as it reflects our joint reflections. Continue Zosyn, F/U Cx's. Transfer to Surgical Floor Subjective Allergies: Coded Allergies: FLUCONAZOLE (Verified Allergy, Unknown, Rash, 09/05/19) Susan Morales DIRECTOR GLOBAL DEVELOPMENT Sep 07, 2019 10:02 Mckay Goel MD Sep 07, 2019 19:52
[2019-09-07 12:00] VITALS: BP 123/77
[2019-09-07 16:00] VITALS: BP 128/82
--- NOTE | 2019-09-07 19:52 | NUR ---
HAND-OFF: Report given to FIONA Del Valle.
[2019-09-07 20:00] VITALS: BP 141/86
--- NOTE | 2019-09-07 20:29 | NUR ---
NURSE NOTES: RECEIVED PATIENT FROM FIONA GARCIA. PATIENT IS AWAKE, AAOX4, ON ROOM AIR, NO ACUTE DISTRESS NOTED. PATIENT DENIES PAIN AND SOB. IV INTACT AND PATENT. SKIN IS INTACT. BED IS LOCKED AND LOW, BED ALARMS ACTIVE, SIDE RAILS X2 AND CALL LIGHT IS WITHIN REACH. WILL CONTINUE TO MONITOR.
[2019-09-07] MEDS: Iron Sucrose 100 MG in NS 55 ML IV SCH (21:33)
[2019-09-08] VITALS: BP 127/86
[2019-09-08] MEDS: Azithromycin 500 MG in D5W 275 ML IV SCH (00:43)
[2019-09-08] MEDS: Piperacillin/Tazobactam 4.5 GM in NS 110 ML IVPB SCH ×3 (01:00→18:06)
[2019-09-08 04:00] VITALS: BP 138/88
[2019-09-08 07:51] LABS: HEMOGLOBIN 10.3 G/DL (12.0-16.0); LYMPHOCYTES % (AUTO) 16.4 % (20.0-45.0); MEAN CORPUSCULAR VOLUME 86 FL (80-99); MONOCYTES % (AUTO) 12.5 % (1.0-10.0); NEUTROPHILS % (AUTO) 68.1 % (45.0-75.0); PLATELET COUNT 308 K/UL (150-450); RED BLOOD COUNT 3.62 M/UL (4.20-5.40); RED CELL DISTRIBUTION WIDTH 15.9 % (11.6-14.8); WHITE BLOOD COUNT 8.3 K/UL (4.8-10.8)
--- NOTE | 2019-09-08 07:55 | NUR ---
HAND-OFF: Report given to FIONA Mcgee. Endorsed plan of care.
[2019-09-08 08:00] VITALS: BP 126/84
[2019-09-08 08:02] LABS: ALANINE AMINOTRANSFERASE 21 U/L (12-78); ALBUMIN 2.2 G/DL (3.4-5.0); ALBUMIN/GLOBULIN RATIO 0.5 (1.0-2.7); ALKALINE PHOSPHATASE 58 U/L (46-116); ANION GAP 11 mmol/L (5-15); ASPARTATE AMINO TRANSFERASE 25 U/L (15-37); BILIRUBIN,TOTAL 0.2 MG/DL (0.2-1.0); BLOOD UREA NITROGEN 4 mg/dL (7-18); CALCIUM 8.6 MG/DL (8.5-10.1); CARBON DIOXIDE 23 MMOL/L (21-32); CHLORIDE 107 MMOL/L (98-107); CREATININE 0.8 MG/DL (0.55-1.30); POTASSIUM 3.4 MMOL/L (3.5-5.1); SODIUM 141 MMOL/L (136-145)
--- NOTE | 2019-09-08 08:02 | NUR ---
NURSE NOTES: Patient alert x4; on room air, no sing of distress and shortness of breath; no sing of chest pain; IV Left AC NS 100cc running; patient stated no bleeding at this time; side rails up x2, breaks engaged, bed at lowest position; call light within reach; will keep monitoring.
--- NOTE | 2019-09-08 08:34 | Pulmonology Progress Note ---
Susna Morales SENIOR PRINCIPAL 09/08/19 0834: Assessment/Plan Assessment/Plan ASSESSMENT 1. Acute febrile illness 2 Sepsis (POA) with E coli bacteremia 3. Ecoli UTI 4. Sinus tachycardia -resolved 5. Suspected CoVID19 infection -ruled out 6. Symptomatic uterine fibroids with hx of recent myomectomy, and prior uterine artery embolization 7. Nausea, vomiting and diarrhea , possible gastroenteritis -gardually resolving ( stool C dif NGT) 8. Anemia 9. Rheumatoid arthritis 10. Mild hypokalemia [facility]AN OF CARE [facility] floor fup with REYNA-COV-2 by PCR-NGT off isolation IVF empiric abx - Zosyn and Azithromycin fup with cx : BCX + E coli UCX +Ecoli, SCX + GNB repeated BCX pending ST likely due to fever and possible mild dehydration -resolved STAFF DEVELOPMENT EDUCATOR consult noted and appreciated compare results of CT A/P with prior imaging pain management monitor HH with goal to keep Hgb above 7 ; started on IV iron per STAFF DEVELOPMENT EDUCATOR, HH at baseline DVT GI prophylaxis a/emetic prn, monitor for GI symptoms resolution no nausea, l stool becoming more formed, probably gastroenteritis check stool C dif NGT replaced K today, Mg stable, BMP pending still for this am will try to arrange home IV abx case discussed and evaluated by supervising physician Subjective Allergies: Coded Allergies: FLUCONAZOLE (Verified Allergy, Unknown, Rash, 09/05/19) Subjective leukocytosis resolved this am afebrile, fever last night, 101.7 BCX and UCX + Ecoli, stool C dif NGT less diarrhea, becoming more formed stool Objective Last 24 Hour Vital Signs Date Time Temp Pulse Resp B/P (MAP) Pulse Ox O2 Delivery O2 Flow Rate FiO2 09/08/19 04:00 97.3 80 18 138/88 (105) 99 09/08/19 00:00 98.8 71 18 127/86 (100) 99 09/07/19 22:04 98.8 09/07/19 21:00 Room Air 09/07/19 20:00 101.7 99 20 141/86 (104) 99 09/07/19 16:00 99.0 102 18 128/82 (97) 98 09/07/19 12:00 97.2 88 18 123/77 (92) 98 09/07/19 09:00 Room Air Intake and Output 09/07/19 09/08/19 19:00 07:00 Intake Total 480 ml 850.0 ml Balance 480 ml 850.0 ml Intake Oral 480 ml IV Total 850.0 ml # Voids 3 2 Objective General Appearance: WD/WN, no apparent distress, alert Lines, tubes and drains: peripheral HEENT: normocephalic, atraumatic, anicteric, mucous membranes moist, PERRL Neck: supple, normal inspection Respiratory/Chest: chest wall non-tender, lungs clear, no respiratory distress Cardiovascular/Chest: normal rate, regular rhythm Abdomen: normal bowel sounds, soft, nontender Extremities: normal range of motion, no calf tenderness, normal capillary refill Skin Exam: normal pigmentation, warm/dry Neurologic: nuclear engineer II-XII grossly normal, no motor/sensory deficits, alert, oriented x 3 Musculoskeletal: normal muscle bulk Microbiology Date/Time Source Procedure Growth Status 09/05/19 15:20 Blood Blood Culture - Preliminary NO GROWTH AFTER 48 HOURS Resulted 09/05/19 14:50 Blood Blood Culture - Final Escherichia Coli Complete 09/06/19 19:30 Sputum Gram Stain Pending Resulted 09/06/19 19:30 Sputum Culture - Preliminary Gram Negative Bacillus 1 Usual Respiratory Mitzi Resulted 09/05/19 16:00 Nasopharynx Coronavirus COVID-19 PCR (MAC) - Final Complete 09/07/19 18:00 Stool Clostridium difficile Toxin Assay - Final Complete 09/05/19 14:30 Urine,Clean Catch Urine Culture - Final Escherichia Coli Complete Laboratory Tests 09/08/19 07:25: White Blood Count 8.3, Red Blood Count 3.62L, Hemoglobin 10.3L, Hematocrit 31.0L , Mean Corpuscular Volume 86, Mean Corpuscular Hemoglobin 28.4, Mean Corpuscular Hemoglobin Concent 33.2, Red Cell Distribution Width 15.9H, Platelet Count 308, Mean Platelet Volume 4.9L, Neutrophils (%) (Auto) 68.1, Lymphocytes (%) (Auto) 16.4L, Monocytes (%) (Auto) 12.5H, Eosinophils (%) (Auto ) 2.0, Basophils (%) (Auto) 1.0, Sodium Level [Pending], Potassium Level [ Pending], Chloride Level [Pending], Carbon Dioxide Level [Pending], Blood Urea Nitrogen [Pending], Creatinine [Pending], Estimat Glomerular Filtration Rate [ Pending], Glucose Level [Pending], Calcium Level [Pending], Total Bilirubin [ Pending], Aspartate Amino Transf (AST/SGOT) [Pending], Alanine Aminotransferase (ALT/SGPT) [Pending], Alkaline Phosphatase [Pending], Total Protein [Pending], Albumin [Pending], Globulin [Pending] Current Medications Medications (Trade) Dose Ordered Sig/Mitchel Route PRN Reason Start Time Stop Time Status Last Admin Dose Admin Acetaminophen (Tylenol) 650 mg Q6H PRN ORAL Temp >100.5 09/05/19 23:00 10/05/19 22:59 09/07/19 21:34 Acetaminophen/ Hydrocodone Bitart ([place] 5/325) 1 tab Q6H PRN ORAL For Pain 09/05/19 23:00 09/12/19 22:59 Azithromycin 500 mg/Dextrose 275 ml @ 275 mls/hr Q24HRS IV 09/06/19 00:00 09/12/19 00:59 09/08/19 00:43 Heparin Sodium (Porcine) (Heparin 5000 units/ml) 5,000 units EVERY 12 HOURS SUBQ 09/06/19 09:00 10/21/19 08:59 09/07/19 09:32 Iron Sucrose 100 mg/Sodium Chloride 60 ml @ 240 mls/hr BEDTIME IV 09/07/19 21:00 09/11/19 21:14 09/07/19 21:33 Ondansetron HCl (Zofran) 4 mg Q6H PRN IVP Nausea & Vomiting 09/06/19 16:00 10/06/19 15:59 Piperacillin Sod/ Tazobactam Sod 4.5 gm/Sodium Chloride 110 ml @ 27.5 mls/hr Q8H IVPB 09/06/19 09:00 09/12/19 00:59 09/08/19 01:00 Sodium Chloride 1,000 ml @ 100 mls/hr Q10H IV 09/06/19 03:30 10/05/19 22:59 09/08/19 05:30 Mckay Goel MD 09/08/192037: Assessment/Plan Assessment/Plan Patient seen and examined with SENIOR PRINCIPAL. Agree with A&P as outlined above as it reflects our joint deliberations. Subjective Allergies: Coded Allergies: FLUCONAZOLE (Verified Allergy, Unknown, Rash, 09/05/19) Susan Morales NP Sep 08, 2019 08:34 Mckay Goel MD Sep 08, 2019 20:38
[2019-09-08] MEDS: Heparin 5000 units/ml inj SUBQ SCH ×3 (09:00→21:00)
[2019-09-08 12:00] VITALS: BP 129/89
[2019-09-08 16:00] VITALS: BP 130/87
--- NOTE | 2019-09-08 16:38 | NUR ---
NURSE NOTES: Patient transferred from 4E 409-2 to 3E 307-2; report given to FIONA Gilmore; patient's belonging crossed matched and signed by transferring and receiving nurse's; patient is stable upon transfer; patient's anti-biotics and patient's chart given to receiving nurse; plan of care endorsed to the receiving nurse;
--- NOTE | 2019-09-08 16:45 | NUR ---
NURSE NOTES: Patient transferred safely to 3E from 4E via bed, patient is in stable condition, vital signs are stable.
--- NOTE | 2019-09-08 19:20 | NUR ---
HAND-OFF: Report given to GAURAV JAIMES.
--- NOTE | 2019-09-08 19:30 | NUR ---
NURSE NOTES: Received report & pt from FIONA Souza. Pt lying in bed, a&ox4, in room air. No s/s of acute distress & no c/o pain. IV site intact with IVF running as ordered. Plan of care discussed
[2019-09-08 20:45] VITALS: BP 139/87
[2019-09-08] MEDS: Iron Sucrose 100 MG in NS 55 ML IV SCH (20:50)
--- NOTE | 2019-09-08 21:23 | NUR ---
NURSE NOTES: 2044 oral temp 101.7; rechecked @ 2102 with 100.4 oral temp. Tylenol given. @ 2122 temp recheck 98.6
[2019-09-09] VITALS (7 sets, daily range): BP systolic 121–135; BP diastolic 69–88
[2019-09-09] MEDS: Piperacillin/Tazobactam 4.5 GM in NS 110 ML IVPB SCH (00:30)
[2019-09-09 06:44] LABS: HEMOGLOBIN 10.8 G/DL (12.0-16.0); MEAN CORPUSCULAR VOLUME 86 FL (80-99); PLATELET COUNT 357 K/UL (150-450); RED BLOOD COUNT 3.82 M/UL (4.20-5.40); RED CELL DISTRIBUTION WIDTH 16.2 % (11.6-14.8); WHITE BLOOD COUNT 11.2 K/UL (4.8-10.8)
[2019-09-09 07:08] LABS: ALANINE AMINOTRANSFERASE 40 U/L (12-78); ALBUMIN 2.2 G/DL (3.4-5.0); ALBUMIN/GLOBULIN RATIO 0.5 (1.0-2.7); ALKALINE PHOSPHATASE 68 U/L (46-116); ANION GAP 12 mmol/L (5-15); ASPARTATE AMINO TRANSFERASE 42 U/L (15-37); BILIRUBIN,TOTAL 0.2 MG/DL (0.2-1.0); BLOOD UREA NITROGEN 5 mg/dL (7-18); CALCIUM 8.5 MG/DL (8.5-10.1); CARBON DIOXIDE 24 MMOL/L (21-32); CHLORIDE 109 MMOL/L (98-107); CREATININE 0.9 MG/DL (0.55-1.30); POTASSIUM 3.8 MMOL/L (3.5-5.1); SODIUM 144 MMOL/L (136-145)
--- NOTE | 2019-09-09 07:28 | NUR ---
HAND-OFF: Report given to Nela Edmond RN. Pt in stable condition.
--- NOTE | 2019-09-09 07:45 | NUR ---
NURSE NOTES: Received report from FIONA Bates. Pt lying in bed, a&ox4, in room air. No s/s of acute distress & no c/o pain. IV site intact with IVF running as ordered. Call light within reach. Will continue to monitor
--- NOTE | 2019-09-09 07:49 | General Surgery Progress Note ---
General Surgery-Progress Note Subjective Procedure Performed hysteroscopy Chief Complaint: fever Symptoms: improved, tolerating diet, voiding well, BM Objective Last 24 Hour Vital Signs Date Time Temp Pulse Resp B/P (MAP) Pulse Ox O2 Delivery O2 Flow Rate FiO2 09/09/19 04:00 98.1 81 18 134/87 (103) 98 09/09/19 00:00 98.4 87 16 121/83 (96) 99 09/08/19 21:33 98.6 09/08/19 21:23 98.6 09/08/19 21:03 100.4 09/08/19 21:00 Room Air 09/08/19 20:45 101.1 97 16 139/87 (104) 99 09/08/19 16:00 98.1 81 18 130/87 (101) 99 09/08/19 12:00 98.0 87 19 129/89 (102) 98 09/08/19 09:00 Room Air 09/08/19 08:00 97.9 85 18 126/84 (98) 99 I&O Intake and Output 09/08/19 09/09/19 19:00 07:00 Intake Total 1010.0 ml 1500 ml Balance 1010.0 ml 1500 ml Intake Oral 500 ml 400 ml IV Total 510.0 ml 1100 ml Dressing: dry Wound: clean Drains: none Cardiovascular: RSR Respiratory: clear Abdomen: soft, flat, scaphoid, tenderness, present bowel sounds Extremities: edema, tenderness, cyanosis Laboratory Tests Test 09/09/19 05:10 White Blood Count 11.2 K/UL (4.8-10.8) H Red Blood Count 3.82 M/UL (4.20-5.40) L Hemoglobin 10.8 G/DL (12.0-16.0) L Hematocrit 33.0 % (37.0-47.0) L Mean Corpuscular Volume 86 FL (80-99) Mean Corpuscular Hemoglobin 28.4 PG (27.0-31.0) Mean Corpuscular Hemoglobin Concent 32.9 G/DL (32.0-36.0) Red Cell Distribution Width 16.2 % (11.6-14.8) H Platelet Count 357 K/UL (150-450) Mean Platelet Volume 5.2 FL (6.5-10.1) L Neutrophils (%) (Auto) % (45.0-75.0) Lymphocytes (%) (Auto) % (20.0-45.0) Monocytes (%) (Auto) % (1.0-10.0) Eosinophils (%) (Auto) % (0.0-3.0) Basophils (%) (Auto) % (0.0-2.0) Neutrophils % (Manual) Pending Lymphocytes % (Manual) Pending Platelet Estimate Pending Platelet Morphology Pending Sodium Level 144 MMOL/L (136-145) Potassium Level 3.8 MMOL/L (3.5-5.1) Chloride Level 109 MMOL/L (98-107) H Carbon Dioxide Level 24 MMOL/L (21-32) Anion Gap 12 mmol/L (5-15) Blood Urea Nitrogen 5 mg/dL (7-18) L Creatinine 0.9 MG/DL (0.55-1.30) Estimat Glomerular Filtration Rate > 60 mL/min (>60) Glucose Level 96 MG/DL (74-106) Calcium Level 8.5 MG/DL (8.5-10.1) Total Bilirubin 0.2 MG/DL (0.2-1.0) Aspartate Amino Transf (AST/SGOT) 42 U/L (15-37) H Alanine Aminotransferase (ALT/SGPT) 40 U/L (12-78) Alkaline Phosphatase 68 U/L (46-116) Total Protein 7.0 G/DL (6.4-8.2) Albumin 2.2 G/DL (3.4-5.0) L Globulin 4.8 g/dL Albumin/Globulin Ratio 0.5 (1.0-2.7) L Additional Comments temperature curve continues downward. second blood culture done last night Plan Additional Comments pending results of blood culture, oral or iv antibiotics as op. Kumar Zheng MD Sep 09, 2019 07:49
--- NOTE | 2019-09-09 09:03 | Pulmonology Progress Note ---
Susan Morales WORD PROCESSING OPERATOR 09/09/19 0902: Assessment/Plan Assessment/Plan ASSESSMENT 1. Acute febrile illness 2 Sepsis (POA) with E coli bacteremia 3. Ecoli UTI 4. Sinus tachycardia -resolved 5. Suspected CoVID19 infection -ruled out 6. Symptomatic uterine fibroids with hx of recent myomectomy, and prior uterine artery embolization 7. Nausea, vomiting and diarrhea , possible gastroenteritis -gardually resolving ( stool C dif NGT) 8. Anemia 9. Rheumatoid arthritis 10. Mild hypokalemia [facility] CARE [facility] floor REYNA-COV-2 by PCR-NGT off isolation IVF empiric abx - Zosyn and Azithromycin fup with cx : BCX + E coli UCX +Ecoli, SCX + E coli repeated BCX for clearance pending deescalate Zosyn to ceftriaxone, dc Azithromycin ST likely due to fever and possible mild dehydration -resolved REGULATORY ASSOCIATE consult noted and appreciated pain management monitor HH with goal to keep Hgb above 7 ; started on IV iron per REGULATORY ASSOCIATE, HH at baseline till 09/10 x 5 bags DVT /GI prophylaxis a/emetic prn, monitor for GI symptoms resolution no nausea, stool more formed, probably mild gastroenteritis , resolving stool C dif NGT K finally stable this am after replacement, Mg stable 09/06 will try to arrange home IV abx spoke with nurse to try to change a room case discussed and evaluated by supervising physician Subjective Allergies: Coded Allergies: FLUCONAZOLE (Verified Allergy, Unknown, Rash, 09/05/19) Subjective mild leukocytosis this am still with low grade fever last night, 100.4 currently afebrile BCX and UCX + Ecoli, stool C dif NGT no diarrhea, more formed stool reports feeling better no vaginal bleeding frustrated about construction noise distinctly heard in her room Objective Last 24 Hour Vital Signs Date Time Temp Pulse Resp B/P (MAP) Pulse Ox O2 Delivery O2 Flow Rate FiO2 09/09/19 04:00 98.1 81 18 134/87 (103) 98 09/09/19 00:00 98.4 87 16 121/83 (96) 99 09/08/19 21:33 98.6 09/08/19 21:23 98.6 09/08/19 21:03 100.4 09/08/19 21:00 Room Air 09/08/19 20:45 101.1 97 16 139/87 (104) 99 09/08/19 16:00 98.1 81 18 130/87 (101) 99 09/08/19 12:00 98.0 87 19 129/89 (102) 98 09/08/19 09:00 Room Air Intake and Output 09/08/19 09/09/19 19:00 07:00 Intake Total 1010.0 ml 1500 ml Balance 1010.0 ml 1500 ml Intake Oral 500 ml 400 ml IV Total 510.0 ml 1100 ml Objective General Appearance: WD/WN, no apparent distress, alert Lines, tubes and drains: peripheral HEENT: normocephalic, atraumatic, anicteric, mucous membranes moist, PERRL Neck: supple, normal inspection Respiratory/Chest: chest wall non-tender, lungs clear, no respiratory distress Cardiovascular/Chest: normal rate, regular rhythm Abdomen: normal bowel sounds, soft, nontender Extremities: normal range of motion, no calf tenderness, normal capillary refill Skin Exam: normal pigmentation, warm/dry Neurologic: human resources team member II-XII grossly normal, no motor/sensory deficits, alert, oriented x 3 Musculoskeletal: normal muscle bulk Microbiology Date/Time Source Procedure Growth Status 09/06/19 19:30 Sputum Gram Stain - Final Complete 09/06/19 19:30 Sputum Culture - Final Escherichia Coli Usual Respiratory Mitzi Complete 09/07/19 18:00 Stool Clostridium difficile Toxin Assay - Final Complete Laboratory Tests 09/09/19 05:10: White Blood Count 11.2H, Red Blood Count 3.82L, Hemoglobin 10.8L, Hematocrit 33.0L, Mean Corpuscular Volume 86, Mean Corpuscular Hemoglobin 28.4, Mean Corpuscular Hemoglobin Concent 32.9, Red Cell Distribution Width 16.2H, Platelet Count 357, Mean Platelet Volume 5.2L, Neutrophils (%) (Auto) , Lymphocytes (%) (Auto) , Monocytes (%) (Auto) , Eosinophils (%) (Auto) , Basophils (%) (Auto) , Neutrophils % (Manual) [Pending], Lymphocytes % (Manual) [Pending], Platelet Estimate [Pending], Platelet Morphology [Pending], Sodium Level 144, Potassium Level 3.8, Chloride Level 109H, Carbon Dioxide Level 24, Anion Gap 12, Blood Urea Nitrogen 5L, Creatinine 0.9, Estimat Glomerular Filtration Rate > 60, Glucose Level 96, Calcium Level 8.5, Total Bilirubin 0.2, Aspartate Amino Transf (AST/SGOT) 42H, Alanine Aminotransferase (ALT/SGPT) 40, Alkaline Phosphatase 68, Total Protein 7.0, Albumin 2.2L, Globulin 4.8, Albumin/ Globulin Ratio 0.5L Current Medications Medications (Trade) Dose Ordered Sig/Mitchel Route PRN Reason Start Time Stop Time Status Last Admin Dose Admin Acetaminophen (Tylenol) 650 mg Q6H PRN ORAL Temp >100.5 09/05/19 23:00 10/05/19 22:59 09/08/19 21:03 Acetaminophen/ Hydrocodone Bitart ([place] 5/325) 1 tab Q6H PRN ORAL For Pain 09/05/19 23:00 09/12/19 22:59 Heparin Sodium (Porcine) (Heparin 5000 units/ml) 5,000 units EVERY 12 HOURS SUBQ 09/06/19 09:00 10/21/19 08:59 09/07/19 09:32 Iron Sucrose 100 mg/Sodium Chloride 60 ml @ 240 mls/hr BEDTIME IV 09/07/19 21:00 09/11/19 21:14 09/08/19 20:50 Ondansetron HCl (Zofran) 4 mg Q6H PRN IVP Nausea & Vomiting 09/06/19 16:00 10/06/19 15:59 Piperacillin Sod/ Tazobactam Sod 4.5 gm/Sodium Chloride 110 ml @ 27.5 mls/hr Q8H IVPB 09/06/19 09:00 09/12/19 00:59 09/09/19 00:30 Sodium Chloride 1,000 ml @ 100 mls/hr Q10H IV 09/06/19 03:30 10/05/19 22:59 09/09/19 00:30 Mckay Goel MD 09/09/19 1931: Assessment/Plan Assessment/Plan Patient seen and examined with WORD PROCESSING OPERATOR, agree with A&P as it reflects our joint deliberations. Abx switched to CTx, if jean carlos and stable can be D/C'd on PO Keflex in am. D/W Dr. Zheng and RN @ bedside. Subjective Allergies: Coded Allergies: FLUCONAZOLE (Verified Allergy, Unknown, Rash, 09/05/19) Susan Morales WORD PROCESSING OPERATOR Sep 09, 2019 09:02 Mckay Goel MD Sep 09, 2019 19:31
[2019-09-09] MEDS: cefTRIAXone 2 GM in D5W 55 ML IVPB SCH (09:52)
[2019-09-09] MEDS: Heparin 5000 units/ml inj SUBQ SCH ×2 (09:53→20:15)
--- NOTE | 2019-09-09 10:47 | NUR ---
*-* INSURANCE *-* UPDATED CLINICALS AND REVIEWS HAVE BEEN FAXED TO: [facility] FAX ALL CLINICALS TO [phone]
--- NOTE | 2019-09-09 13:23 | Diagnostic Imaging Report ---
Indication: Lower extremity pain Technique: Grayscale and duplex images of the bilateral lower extremity veins Comparison: None Findings: Bilaterally, grayscale and duplex images demonstrate no evidence of intraluminal thrombus. Normal phasic Doppler waveforms, demonstrating normal augmentation response and no evidence of valvular insufficiency. Greater saphenous vein(s) and tibial veins are patent. Normal compressibility. Impression: Negative for evidence of lower extremity deep venous thrombosis bilaterally
[2019-09-09] MEDS: HYDROcodone/Acetamin 5/325 tab ORAL PRN (16:07)
--- NOTE | 2019-09-09 19:46 | NUR ---
NURSE NOTES: Report received from FIONA Guo. Patient in stable condition.
--- NOTE | 2019-09-09 19:56 | NUR ---
HAND-OFF: Report given to FIONA Mandel.
[2019-09-09] MEDS: Iron Sucrose 100 MG in NS 55 ML IV SCH (20:14)
--- NOTE | 2019-09-09 23:19 | NUR ---
NURSE NOTES: At 1999, patient has temperature of 100.3. Gave tylenol 650 mg. Reassessed after about an hour, patient presents temperature of 101. Patient does not show any signs of distress. Cooling measures such as ice packs and a fan. Will reassess temperature and continue to monitor.
[2019-09-10 04:00] VITALS: BP 134/81
[2019-09-10 06:32] LABS: BASOPHILS % (AUTO) 0.9 % (0.0-2.0); EOSINOPHILS % (AUTO) 1.3 % (0.0-3.0); HEMATOCRIT 32.5 % (37.0-47.0); HEMOGLOBIN 10.7 G/DL (12.0-16.0); LYMPHOCYTES % (AUTO) 14.4 % (20.0-45.0); MEAN CORPUSCULAR VOLUME 86 FL (80-99); MONOCYTES % (AUTO) 6.7 % (1.0-10.0); NEUTROPHILS % (AUTO) 76.7 % (45.0-75.0); PLATELET COUNT 392 K/UL (150-450); RED BLOOD COUNT 3.77 M/UL (4.20-5.40); RED CELL DISTRIBUTION WIDTH 16.1 % (11.6-14.8); WHITE BLOOD COUNT 13.6 K/UL (4.8-10.8)
[2019-09-10 07:25] LABS: ALANINE AMINOTRANSFERASE 37 U/L (12-78); ALBUMIN 2.1 G/DL (3.4-5.0); ALBUMIN/GLOBULIN RATIO 0.4 (1.0-2.7); ALKALINE PHOSPHATASE 66 U/L (46-116); ANION GAP 10 mmol/L (5-15); ASPARTATE AMINO TRANSFERASE 35 U/L (15-37); BILIRUBIN,TOTAL 0.1 MG/DL (0.2-1.0); BLOOD UREA NITROGEN 4 mg/dL (7-18); CALCIUM 8.1 MG/DL (8.5-10.1); CARBON DIOXIDE 25 MMOL/L (21-32); CHLORIDE 109 MMOL/L (98-107); CREATININE 0.7 MG/DL (0.55-1.30); POTASSIUM 3.7 MMOL/L (3.5-5.1); SODIUM 144 MMOL/L (136-145)
--- NOTE | 2019-09-10 07:45 | NUR ---
NURSE NOTES: Received report from FIONA Mandel. Pt in bed with no acute respiratory distress. Pt denies any pain at this time. IV site intact. Bed in lowest position and locked. Will continue to monitor.
[2019-09-10 08:00] VITALS: BP 127/80
[2019-09-10] MEDS: Heparin 5000 units/ml inj SUBQ SCH ×2 (08:55→21:15)
[2019-09-10] MEDS: cefTRIAXone 2 GM in D5W 55 ML IVPB SCH (08:58)
--- NOTE | 2019-09-10 09:06 | Pulmonology Progress Note ---
Morales Susan BAND INSTRUMENT REPAIRER 09/10/19 0906: Assessment/Plan Assessment/Plan ASSESSMENT 1. Acute febrile illness 2 Sepsis (POA) with E coli bacteremia 3. Ecoli UTI 4. Sinus tachycardia -resolved 5. Suspected CoVID19 infection -ruled out 6. Symptomatic uterine fibroids with hx of recent myomectomy, and prior uterine artery embolization 7. Nausea, vomiting and diarrhea , possible gastroenteritis -gardually resolving ( stool C dif NGT) 8. Anemia 9. Rheumatoid arthritis 10. Mild hypokalemia [facility] floor REYNA-COV-2 by PCR-NGT off isolation IVF empiric abx - Zosyn and Azithromycin fup with cx : BCX + E coli UCX +Ecoli, SCX + E coli repeated BCX NGTD Zosyn deescalate to ceftriaxone, Azithromycin was prior dc still with fevers, leuk trending up will get stat CT A/P with IV contrast r/o abscess ID consult MATERIAL CHASER follows ST likely due to fever and possible mild dehydration -resolved pain management monitor HH with goal to keep Hgb above 7 ; started on IV iron per MATERIAL CHASER, HH at baseline till 09/10 x 5 bags DVT /GI prophylaxis a/emetic prn, monitor for GI symptoms resolution no nausea, stool more formed, probably mild gastroenteritis , resolving stool C dif NGT K stable after replacement, Mg stable 09/06 case discussed and evaluated by supervising physician Subjective Allergies: Coded Allergies: FLUCONAZOLE (Verified Allergy, Unknown, Rash, 09/05/19) Subjective fever this am 101 leukocytosis with trend up BCX and UCX + Ecoli, stool C dif NGT repeated BCX NGTD no diarrhea, formed stool reports feeling better no vaginal bleeding transferred to 3 rd floor yesterday, now happy about the room Objective Last 24 Hour Vital Signs Date Time Temp Pulse Resp B/P (MAP) Pulse Ox O2 Delivery O2 Flow Rate FiO2 09/10/19 04:00 98.6 93 20 134/81 (98) 100 09/09/19 23:18 101.0 98 20 134/88 (103) 97 09/09/19 22:09 101.0 09/09/19 21:00 Room Air 09/09/19 20:00 100.3 102 20 132/78 (96) 99 09/09/19 16:37 98.5 09/09/19 16:00 98.5 93 20 131/86 (101) 100 09/09/19 12:00 98.5 89 20 128/69 (88) 99 Intake and Output 09/09/19 09/10/19 19:00 07:00 Intake Total 1300 ml 1300 ml Balance 1300 ml 1300 ml Intake Oral 600 ml 200 ml IV Total 700 ml 1100 ml # Voids 4 3 Objective General Appearance: WD/WN, no apparent distress, alert Lines, tubes and drains: peripheral HEENT: normocephalic, atraumatic, anicteric, mucous membranes moist, PERRL Neck: supple, normal inspection Respiratory/Chest: chest wall non-tender, lungs clear, no respiratory distress Cardiovascular/Chest: normal rate, regular rhythm Abdomen: normal bowel sounds, soft, nontender Extremities: normal range of motion, no calf tenderness, normal capillary refill Skin Exam: normal pigmentation, warm/dry Neurologic: auto overhauler II-XII grossly normal, no motor/sensory deficits, alert, oriented x 3 Musculoskeletal: normal muscle bulk Microbiology Date/Time Source Procedure Growth Status 09/08/19 07:30 Blood Blood Culture - Preliminary NO GROWTH AFTER 24 HOURS Resulted 09/08/19 07:25 Blood Blood Culture - Preliminary NO GROWTH AFTER 24 HOURS Resulted 09/07/19 18:00 Stool Clostridium difficile Toxin Assay - Final Complete Laboratory Tests 09/10/19 05:00: White Blood Count 13.6H, Red Blood Count 3.77L, Hemoglobin 10.7L, Hematocrit 32.5L, Mean Corpuscular Volume 86, Mean Corpuscular Hemoglobin 28.5, Mean Corpuscular Hemoglobin Concent 33.0, Red Cell Distribution Width 16.1H, Platelet Count 392, Mean Platelet Volume 4.7L, Neutrophils (%) (Auto) 76.7H, Lymphocytes (%) (Auto) 14.4L, Monocytes (%) (Auto) 6.7, Eosinophils (%) (Auto) 1.3, Basophils (%) (Auto) 0.9, Sodium Level 144, Potassium Level 3.7, Chloride Level 109H, Carbon Dioxide Level 25, Anion Gap 10, Blood Urea Nitrogen 4L, Creatinine 0.7, Estimat Glomerular Filtration Rate > 60, Glucose Level 89, Calcium Level 8.1L, Total Bilirubin 0.1L, Aspartate Amino Transf (AST/SGOT) 35, Alanine Aminotransferase (ALT/SGPT) 37, Alkaline Phosphatase 66, Total Protein 6.9, Albumin 2.1L, Globulin 4.8, Albumin/Globulin Ratio 0.4L Current Medications Medications (Trade) Dose Ordered Sig/Mitchel Route PRN Reason Start Time Stop Time Status Last Admin Dose Admin Acetaminophen (Tylenol) 650 mg Q6H PRN ORAL Temp >100.5 09/05/19 23:00 10/05/19 22:59 09/09/19 21:39 Acetaminophen/ Hydrocodone Bitart ([place] 5/325) 1 tab Q6H PRN ORAL For Pain 09/05/19 23:00 09/12/19 22:59 09/09/19 16:07 Ceftriaxone Sodium 2 gm/ Dextrose 55 ml @ 110 mls/hr Q24H IVPB 09/09/19 09:00 09/16/19 08:59 09/10/19 08:58 Heparin Sodium (Porcine) (Heparin 5000 units/ml) 5,000 units EVERY 12 HOURS SUBQ 09/06/19 09:00 10/21/19 08:59 09/10/19 08:55 Iron Sucrose 100 mg/Sodium Chloride 60 ml @ 240 mls/hr BEDTIME IV 09/07/19 21:00 09/11/19 21:14 09/09/19 20:14 Ondansetron HCl (Zofran) 4 mg Q6H PRN IVP Nausea & Vomiting 09/06/19 16:00 10/06/19 15:59 Sodium Chloride 1,000 ml @ 100 mls/hr Q10H IV 09/06/19 03:30 10/05/19 22:59 09/10/19 06:44 Mckay Goel MD 09/10/19 1733: Assessment/Plan Assessment/Plan Patient seen and examined with BAND INSTRUMENT REPAIRER, agree with A&P as it reflects our joint deliberations. ID consult appreciated. Ongoing d/w Dr. Zheng ----> possible OR tommorrow. Subjective Allergies: Coded Allergies: FLUCONAZOLE (Verified Allergy, Unknown, Rash, 09/05/19) Susan Morales BAND INSTRUMENT REPAIRER Sep 10, 2019 09:06 Mckay Goel MD Sep 10, 2019 17:33
[2019-09-10] MEDS ORDERED: Omnipaque-300 100ml vial INJ PRN (09:15)
[2019-09-10 12:00] VITALS: BP 121/67
--- NOTE | 2019-09-10 12:47 | NUR ---
CASE MANAGEMENT: REVIEW 09/07/2019 SI:S/P HYSTEROSCOPY ACUTE FEBRILE ILLNESS. SEPSIS WITH GN BACTEREMIA (DUE TO UTI) 101.7 99 20 141/86 99% ON RA K+ 3.4 BUN 4 IS:IV NS @100 ML/HR IV ZOSYN Q8HR IV VENOFER X5BAGS HEPARIN SQ BID TYLENOL PO Q6HR/PRN \: 3E MED/SURG DCP: HOME WHEN STABLE PLAN: CONTROL FEVERS CONTROL DIARRHEA CASE MANAGEMENT: REVIEW 09/08/2019 SI:ACUTE FEBRILE ILLNESS. Acute cystitis with hematuria. 101.1 97 16 139/87 99% ON RA ALBUMIN 2.1 IS:IV NS @100 ML/HR IV ZOSYN Q8HR IV VENOFER X5BAGS HEPARIN SQ BID TYLENOL PO Q6HR/PRN \: 3E MED/SURG DCP: HOME WHEN STABLE PLAN: BLOOD CX IN PROGRESS COVID-19 NEGATIVE CASE MANAGEMENT: REVIEW 09/09/2019 SI:ACUTE FEBRILE ILLNESS. Acute cystitis with hematuria. 101.1 98 20 134/88 97% ON RA WBC 11.2 ALBUMIN 2.2 IS:IV NS @100 ML/HR IV ROCEPHIN QD IV VENOFER X5BAGS HEPARIN SQ BID TYLENOL PO Q6HR/PRN \: 3E MED/SURG DCP: HOME WHEN STABLE PLAN: SWITCH IV MEDICATION TO ROCEPHIN CONTROL FEVERS CASE MANAGEMENT: REVIEW 09/10/2019 SI:ACUTE FEBRILE ILLNESS. Acute cystitis with hematuria. 98.6 93 20 134/81 100% ON RA WBC 13.6 ALBUMIN 2.1 IS:IV NS @100 ML/HR IV ZOSYN Q8HR IV VENOFER X5BAGS HEPARIN SQ BID TYLENOL PO Q6HR/PRN NORCO PO Q6HR/PRN \: 3E MED/SURG DCP: HOME WHEN STABLE PLAN: MONITOR WBC- INCREASING AT THIS TIME NO RECORDED FEVER
--- NOTE | 2019-09-10 13:41 | NUR ---
*-* INSURANCE *-* UPDATED CLINICALS AND REVIEWS HAVE BEEN FAXED TO: [facility] FAX ALL CLINICALS TO [phone]
--- NOTE | 2019-09-10 13:57 | NUR ---
NURSE NOTES: Came back to the unit from CT with stable condition.
--- NOTE | 2019-09-10 15:05 | Diagnostic Imaging Report ---
Clinical Indication: Abdominal pain. History of prior uterine fibroid embolization Technique: Patient ingested oral contrast IV administration nonionic contrast. Venous phase spiral acquisition obtained through the abdomen and pelvis. Multiplanar reconstructions were generated. Total dose length product 392 mGycm. CTDIvol(s) 8 mGy. Dose reduction achieved using automated exposure control Comparison: 09/05/2019 Findings: Again demonstrated is an enlarged uterus with multiple low-attenuation lesions that presumably represent infarcted fibroids. One of the larger fibroids again contains multiple gas bubbles. However, the amount of gas is overall decreased from the prior study. The most cephalad gas bubble may be within the endometrial space, but this likewise appears diminished from the prior exam. Currently evident, however, not evident previously is a single gas bubble at the expected level of the endocervical canal. The overall size of the uterus and fibroids is unchanged. The uterine myometrium appears to enhance normally. Contrast opacifies most of the colon, which is normal in caliber without evidence of wall thickening. As previously, there is a masslike area in the left side of the pelvis. This probably just represents a combination of redundant tortuous colon and possibly the left ovary. There is focal prominence in caliber and possible wall thickening of a single short segment of proximal jejunum. The small bowel is otherwise normal in caliber without wall thickening. The distal esophagus, stomach, duodenum are unremarkable. No free or loculated intraperitoneal gas or fluid. There is a tiny umbilical hernia which contains only fat. The liver, gallbladder, bile ducts, pancreas, spleen, adrenals are unremarkable. There are prominent but not frankly enlarged retroperitoneal nodes. No pelvic adenopathy. The included lung bases demonstrate some atelectatic changes bilaterally. The bones demonstrate degenerative spondylosis changes. Impression: Decreased gas within one of the larger infarcted fibroids. This suggests resolving expected postoperative gas. No evidence of active infection elsewhere. Prominent left pelvic structure. This probably just represents a prominent left ovary in combination with a loop of colon. Prominent but not frankly enlarged retroperitoneal nodes Minimal basilar atelectasis Mild degenerative spondylosis Incidental finding of small fat-containing abdominal hernia The CT scanner at [facility] is accredited by the [employer] and the scans are performed using protocols designed to limit radiation exposure to as low as reasonably achievable to attain images of sufficient resolution adequate for diagnostic evaluation.
--- NOTE | 2019-09-10 15:55 | NUR ---
NURSE NOTES: Spoke to regarding patient and new order received. Order read back and carried out.
[2019-09-10] MEDS ORDERED: Zolpidem 5mg tab ORAL PRN (15:56)
[2019-09-10 16:00] VITALS: BP 131/65
--- NOTE | 2019-09-10 17:32 | NUR ---
NURSE NOTES: Spoke to regarding patient and received consent order for surgery. Order noted and carried out.
--- NOTE | 2019-09-10 17:42 | Infectious Diseases Prog Note ---
Assessment/Plan Assessment/Plan Full consult dictated: A) 1) e.coli bacteremia - status post uterine artery embolization status post myomectomy and hysteroscopy 2) e.coli in urine and sputum culture - ? uti 3) sepsis, leukocytosis, fevers 4) chest x-ray - negative P) 1) change to zosyn 2) for myomectomy tomorrow 3) surveillance cultures 4) monitor labs 5) d/w Dr. Goel and Dr. Zheng Subjective Allergies: Coded Allergies: FLUCONAZOLE (Verified Allergy, Unknown, Rash, 09/05/19) Objective Vital Signs Last 24 Hour Vital Signs Date Time Temp Pulse Resp B/P (MAP) Pulse Ox O2 Delivery O2 Flow Rate FiO2 09/10/19 16:00 98.0 80 20 131/65 (87) 98 09/10/19 12:00 98.2 85 18 121/67 (85) 99 09/10/19 09:00 Room Air 09/10/19 08:00 98.6 76 18 127/80 (96) 99 09/10/19 04:00 98.6 93 20 134/81 (98) 100 09/09/19 23:18 101.0 98 20 134/88 (103) 97 09/09/19 22:09 101.0 09/09/19 21:00 Room Air 09/09/19 20:00 100.3 102 20 132/78 (96) 99 Height (Feet): 5 Height (Inches): 3.00 Weight (Pounds): 164 Microbiology Date/Time Source Procedure Growth Status 09/08/19 07:30 Blood Blood Culture - Preliminary NO GROWTH AFTER 24 HOURS Resulted 09/08/19 07:25 Blood Blood Culture - Preliminary NO GROWTH AFTER 24 HOURS Resulted 09/07/19 18:00 Stool Clostridium difficile Toxin Assay - Final Complete Laboratory Tests Test 09/10/19 05:00 White Blood Count 13.6 K/UL (4.8-10.8) H Red Blood Count 3.77 M/UL (4.20-5.40) L Hemoglobin 10.7 G/DL (12.0-16.0) L Hematocrit 32.5 % (37.0-47.0) L Mean Corpuscular Volume 86 FL (80-99) Mean Corpuscular Hemoglobin 28.5 PG (27.0-31.0) Mean Corpuscular Hemoglobin Concent 33.0 G/DL (32.0-36.0) Red Cell Distribution Width 16.1 % (11.6-14.8) H Platelet Count 392 K/UL (150-450) Mean Platelet Volume 4.7 FL (6.5-10.1) L Neutrophils (%) (Auto) 76.7 % (45.0-75.0) H Lymphocytes (%) (Auto) 14.4 % (20.0-45.0) L Monocytes (%) (Auto) 6.7 % (1.0-10.0) Eosinophils (%) (Auto) 1.3 % (0.0-3.0) Basophils (%) (Auto) 0.9 % (0.0-2.0) Sodium Level 144 MMOL/L (136-145) Potassium Level 3.7 MMOL/L (3.5-5.1) Chloride Level 109 MMOL/L (98-107) H Carbon Dioxide Level 25 MMOL/L (21-32) Anion Gap 10 mmol/L (5-15) Blood Urea Nitrogen 4 mg/dL (7-18) L Creatinine 0.7 MG/DL (0.55-1.30) Estimat Glomerular Filtration Rate > 60 mL/min (>60) Glucose Level 89 MG/DL (74-106) Calcium Level 8.1 MG/DL (8.5-10.1) L Total Bilirubin 0.1 MG/DL (0.2-1.0) L Aspartate Amino Transf (AST/SGOT) 35 U/L (15-37) Alanine Aminotransferase (ALT/SGPT) 37 U/L (12-78) Alkaline Phosphatase 66 U/L (46-116) Total Protein 6.9 G/DL (6.4-8.2) Albumin 2.1 G/DL (3.4-5.0) L Globulin 4.8 g/dL Albumin/Globulin Ratio 0.4 (1.0-2.7) L Current Medications Medications (Trade) Dose Ordered Sig/Mitchel Route PRN Reason Start Time Stop Time Status Last Admin Dose Admin Acetaminophen (Tylenol) 650 mg Q6H PRN ORAL Temp >100.5 09/05/19 23:00 10/05/19 22:59 09/09/19 21:39 Acetaminophen/ Hydrocodone Bitart ([place] 5/325) 1 tab Q6H PRN ORAL For Pain 09/05/19 23:00 09/12/19 22:59 09/09/19 16:07 Barium Sulfate (Readi-Cat 2) 450 ml NOW PRN ORAL Radiology Procedure 09/10/19 09:15 09/12/19 09:07 Heparin Sodium (Porcine) (Heparin 5000 units/ml) 5,000 units EVERY 12 HOURS SUBQ 09/06/19 09:00 10/21/19 08:59 09/10/19 08:55 Iohexol (OMNIPAQUE-300 100ml) 100 ml NOW PRN INJ Radiology Procedure 09/10/19 09:15 09/12/19 09:07 Iron Sucrose 100 mg/Sodium Chloride 60 ml @ 240 mls/hr BEDTIME IV 09/07/19 21:00 09/11/19 21:14 09/09/19 20:14 Ondansetron HCl (Zofran) 4 mg Q6H PRN IVP Nausea & Vomiting 09/06/19 16:00 10/06/19 15:59 Piperacillin Sod/ Tazobactam Sod 3.375 gm/Dextrose 100 ml @ 25 mls/hr EVERY 8 HOURS IVPB 09/10/19 22:00 09/15/19 21:59 Sodium Chloride 1,000 ml @ 100 mls/hr Q10H IV 09/06/19 03:30 10/05/19 22:59 09/10/19 06:44 Zolpidem Tartrate (Ambien) 5 mg HSPRN PRN ORAL Insomnia 09/10/19 15:56 09/17/19 15:55 Julisa Naranjo MD Sep 10, 2019 17:42
--- NOTE | 2019-09-10 19:36 | NUR ---
NURSE NOTES: Report received from Brant Edmond RN. Patient in stable condition.
--- NOTE | 2019-09-10 19:41 | NUR ---
HAND-OFF: Report given to FIONA Mandel. Pt in stable condition.
[2019-09-10 20:00] VITALS: BP 132/72
[2019-09-10 20:44] LABS: APPEARANCE,URINE CLOUDY; BILIRUBIN, URINE NEGATIVE (NEGATIVE); COLOR,URINE PALE YELLOW; GLUCOSE, URINE (UA) NEGATIVE (NEGATIVE); KETONES,URINE NEGATIVE (NEGATIVE); LEUKOCYTE ESTERASE ,URINE 3+ (NEGATIVE); NITRITE,URINE NEGATIVE (NEGATIVE); PH,URINE 6 (4.5-8.0); PROTEIN,URINE 2+ (NEGATIVE); UROBILINOGEN,URINE NORMAL MG/DL (0.0-1.0)
[2019-09-10] MEDS: Iron Sucrose 100 MG in NS 55 ML IV SCH (21:07)
[2019-09-11] VITALS (16 sets, daily range): BP systolic 117–148; BP diastolic 69–99
--- NOTE | 2019-09-11 01:09 | NUR ---
NURSE NOTES: New IV line inserted at the left hand 22 gauge. NS running at 100 cc an hour. Patient is NPO after midnight. At 2000, patient presented fever of 100.4. Tylenol given. Rechecked temperature at 0000, patient's temp is 98. 2. Patient will have surgery in the AM, consents are signed. Will continue to monitor patient.
--- NOTE | 2019-09-11 01:14 | Consultation ---
DATE OF CONSULTATION: 09/10/2019 INFECTIOUS DISEASES CONSULTATION CONSULTING PHYSICIAN: Julisa Naranjo MD ATTENDING PHYSICIAN: Mckay Goel MD REFERRING PHYSICIAN: Mckay Goel MD REASON FOR CONSULTATION: E. coli bacteremia, sepsis, fevers, possible UTI. CHIEF COMPLAINT: The patient's chief complaint coming into the hospital is febrile illness. HISTORY OF PRESENT ILLNESS: This is a very pleasant 44-year-old female, who has a history of uterine fibroids, who is status post uterine artery embolization, undergone myomectomy and hysteroscopy. I believe this was done last week per the records. It looks like the date of surgery was 09/03/2019. Hysteroscopy was done. The patient was at home and had a febrile illness and was presented to [facility]. She had fevers and tachycardia, abdominal site pain and abnormal vaginal bleeding. The patient could not do an MRI I believe in the outpatient setting. She also had back pain, it looks like. She had a high fever and elevated white count and potential sepsis. The patient was admitted and workup in regard to cultures showed the sputum blood and urine had E. coli. Infectious Disease consultation was requested because the patient has worsening leukocytosis and persistent fevers. The patient currently is on Rocephin. I am going to change the patient to Zosyn. Case was discussed with Dr. Goel and Dr. Zheng, also with RN and the patient at length. MAR was noted. Orders were noted. Notes were reviewed. Of note, chest x-ray was negative. REVIEW OF SYSTEMS: She has no respiratory symptoms currently, maybe occasional cough. PAST MEDICAL HISTORY: Includes the following, the patient has past medical history of the uterine fibroids status post uterine artery embolization, myomectomy, hysteroscopy. It looks like the date of the surgery was 09/03/2019. Otherwise, I do not believe she has any other significant past medical history except for the discussed above fibroids, myomectomy, hysteroscopy, and uterine artery embolization. ALLERGIES: Fluconazole. SOCIAL HISTORY: Negative for smoking, alcohol, drug abuse. FAMILY HISTORY: Noncontributory. MEDICATIONS: Upon reviewing the MAR, she is on following medications. She is on Rocephin. I am going to change the Zosyn. She is on iron, Zofran heparin, acetaminophen, hydrocodone. Outside medications noted and reconciliated. PHYSICAL EXAMINATION: VITAL SIGNS: Currently temperature is 98.0, pulse rate is 80, respiratory rate 20, blood pressure 131/65, saturation is 98% on room air. Her T-max was 101 earlier today. On admission, her maximum temperature is 104.2. GENERAL: The patient is alert, responsive, oriented x3. HEAD AND NECK: Normocephalic. No icterus. HEART: Regular rhythm. No tachycardia. ABDOMEN: Soft. Positive bowel sounds. LUNGS: No respiratory distress noted. SKIN: No rash. MUSCULOSKELETAL: No effusion, legs and extremities without cyanosis or gangrene. NEUROLOGIC: Intact. LINES: She has peripheral IV. There is no phlebitis. GENITOURINARY: No Tom[place]. LABORATORY AND DIAGNOSTIC DATA: White count 13.6, hemoglobin 10.7, creatinine 0.7. LFTs were noted. Urinalysis on admission at 3+ leukocyte esterase, too many to count white blood cells, moderate bacteria. Cultures, C. diff was negative. COVID-19 virus testing is negative. Urine, sputum, blood all had E. coli, pansensitive. Chest x-ray showed no acute disease. CT scan of the abdomen and pelvis done today showed decreased gas within the larger infarcted fibroids, which shows resolving postoperative gas. No other infection noted. ASSESSMENT AND PLAN: 1. The patient has E. coli bacteremia and status post urine artery embolization and myomectomy and hysteroscopy. Questionable if E. coli was seeded into the blood stream postsurgery. Unclear if she has UTI secondary to E. coli, and also the sputum, also had E. coli suggesting bacteremia and dissemination. At this time, we will change antibiotics to Zosyn to cover gram negatives including E. coli and also anaerobic coverage. Continue Zosyn and the plan is for the patient to get a myomectomy tomorrow. Discussed with Dr. Zheng and Dr. Goel. Check surveillance UA, C and S and blood cultures. There is no evidence of pneumonia and chest x-ray was negative. Continue Zosyn for now. Check UA, C and S, blood cultures. Follow up laboratories. Again, the patient will undergo myomectomy tomorrow. Case also discussed with the patient and questions were answered. 2. The patient has a history of uterine fibroids. 3. Uterine artery embolization. 4. History of myomectomy. 5. History of hysteroscopy. 6. No other significant past surgical history. 7. Allergy to fluconazole. 8. Social history negative. 9. Family history noncontributory. 10. MAR was noted. 11. Case discussed with RN. 12. Case discussed with the patient. 13. Case was discussed with Dr. Goel and Dr. Zheng. Julisa Naranjo M.D. DR: CONNOR JOB#: [id number] CC: [place]
[2019-09-11 05:39] LABS: BASOPHILS % (AUTO) 0.9 % (0.0-2.0); EOSINOPHILS % (AUTO) 1.1 % (0.0-3.0); HEMATOCRIT 32.4 % (37.0-47.0); HEMOGLOBIN 10.7 G/DL (12.0-16.0); LYMPHOCYTES % (AUTO) 12.8 % (20.0-45.0); MEAN CORPUSCULAR VOLUME 85 FL (80-99); MONOCYTES % (AUTO) 4.6 % (1.0-10.0); NEUTROPHILS % (AUTO) 80.6 % (45.0-75.0); PLATELET COUNT 441 K/UL (150-450); RED BLOOD COUNT 3.79 M/UL (4.20-5.40); RED CELL DISTRIBUTION WIDTH 16.2 % (11.6-14.8); WHITE BLOOD COUNT 16.6 K/UL (4.8-10.8)
[2019-09-11 05:53] LABS: ALANINE AMINOTRANSFERASE 35 U/L (12-78); ALBUMIN 2.1 G/DL (3.4-5.0); ALBUMIN/GLOBULIN RATIO 0.4 (1.0-2.7); ALKALINE PHOSPHATASE 65 U/L (46-116); ANION GAP 10 mmol/L (5-15); ASPARTATE AMINO TRANSFERASE 27 U/L (15-37); BILIRUBIN,TOTAL 0.2 MG/DL (0.2-1.0); BLOOD UREA NITROGEN 3 mg/dL (7-18); CALCIUM 8.4 MG/DL (8.5-10.1); CARBON DIOXIDE 26 MMOL/L (21-32); CHLORIDE 110 MMOL/L (98-107); CREATININE 0.8 MG/DL (0.55-1.30); POTASSIUM 3.4 MMOL/L (3.5-5.1); SODIUM 146 MMOL/L (136-145)
--- NOTE | 2019-09-11 07:43 | NUR ---
NURSE NOTES: Report given to FIONA Keller. Patient in stable condition, consents signed.
--- NOTE | 2019-09-11 08:00 | NUR ---
NURSE NOTES:REPORT GIVEN BY NIGHT RN(KWAKU),BEDSIDE ROUNDS DONE,PT.AWAKE,AOX4,ROOM AIR,NO CO PAIN.IV SITE PATENT,NPO FOR SURGERY.
[2019-09-11] MEDS: Heparin 5000 units/ml inj SUBQ SCH ×2 (09:00→20:24)
[2019-09-11] MEDS ORDERED: Midazolam 2mg/2ml Inj ONE (09:38)
[2019-09-11] MEDS ORDERED: fentaNYL 100 mcg/2 mL IV ONE (09:38)
[2019-09-11] MEDS ORDERED: Lidocaine 1% MPF 10mg/ml 5ml ONE (09:40)
[2019-09-11] MEDS ORDERED: Propofol 200mg/20ml IV ONE ×2 (09:40→12:04)
--- NOTE | 2019-09-11 10:15 | NUR ---
NURSE NOTES:TO SURGERY BY BED,BEDSIDE HANDOFF DONE WITH TRANSPORTER TECH.PT. STABLE ON [employer].
[2019-09-11] MEDS ORDERED: Rocuronium Bromide 50mg/5ml Inj IV ONE (10:44)
[2019-09-11] MEDS ORDERED: Succinylcholine 20mg/ml 10ml vial ONE (10:44)
--- NOTE | 2019-09-11 10:52 | Pre-Procedure Note/Attestation ---
Pre-Procedure Note/Attestation Complete Prior to Procedure Planned Procedure: not applicable Procedure Narrative: abdominal myomectomy Indications for Procedure Pre-Operative Diagnosis: necrotic myoma Attestation I attest that I discussed the nature of the procedure; its benefits; risks and complications; and alternatives (and the risks and benefits of such alternatives ), prior to the procedure, with the patient (or the patient's legal uniforms sales representative). I attest that, if there was a reasonable possibility of needing a blood transfusion, the patient (or the patient's legal uniforms sales representative) was given the [facility] standardized written summary, pursuant to the [place] Blood Safety Act ([place] Health and Safety Code # 1645, as amended). I attest that I re-evaluated the patient just prior to the surgery and that there has been no change in the patient's H&P, except as documented below: Kumar Zheng MD Sep 11, 2019 10:52
[2019-09-11] MEDS ORDERED: Ropivacaine 5mg/ml Vial 20ml INJ ONE (10:53)
[2019-09-11] MEDS ORDERED: Bupivacaine 0.5% Inj 30 ml vial INJ ONE (10:54)
[2019-09-11] MEDS ORDERED: LR 1000ml ONE (11:00)
[2019-09-11] MEDS ORDERED: NS Irrig 1000ml ONE (11:00)
[2019-09-11] MEDS ORDERED: Sterile Water Irrig 1000ml IRRIG ONE (11:00)
--- NOTE | 2019-09-11 11:59 | Anethesia Preoperative Eval ---
Anesthesia Pre-op PMH/ROS General Date of Evaluation: Sep 11, 2019 Time of Evaluation: 10:50 Anesthesiologist: Jade ASA Score: ASA 2 Mallampati Score Class I : Soft palate, uvula, fauces, pillars visible Class II: Soft palate, uvula, fauces visible Class III: Soft palate, base of uvula visible Class IV: Only hard plate visible Mallampati Classification: Class II Surgeon: Norm Diagnosis: Symptomatic uterine fibroids Surgical Procedure: Open myomectomy Anesthesia History: none Family History: no anesthesia problems Allergies: Coded Allergies: FLUCONAZOLE (Verified Allergy, Unknown, Rash, 09/05/19) Medications: see eMAR Patient NPO?: Yes NPO Date: Sep 11, 2019 NPO Time: 0000 Past Medical History Cardiovascular: Denies: HTN, CAD, PA, valve dz, arrhythmia, other Pulmonary: Denies: asthma, COPD, KITA, other Gastrointestinal/Genitourinary: Reports: GERD; Denies: CRI, ESRD, other Neurologic/Psychiatric: Reports: depression/anxiety; Denies: dementia, CVA, TIA, other Endocrine: Denies: DM, hypothyroidism, steroids, other HEENT: Denies: cataract (L), cataract (R), glaucoma, [place] (L), [place] (R), other Hematology/Immune: Reports: anemia - mild Musculoskeletal/Integumentary: Reports: RA - stable in remission PMH Narrative: as above PSxH Narrative: Uterine artery embolization Anesthesia Pre-op Phys. Exam Physician Exam Last Vital Signs Date Time Temp Pulse Resp B/P (MAP) Pulse Ox O2 Delivery O2 Flow Rate FiO2 09/11/19 08:00 Room Air 09/11/19 08:00 98.3 74 18 143/85 (104) 97 Constitutional: NAD Neurologic: CN 2-12 intact Cardiovascular: RRR, no M/R/G Respiratory: CTA Gastrointestinal: S/NT/ND Airway Exam Mallampati Score: Class II MO: full Neck: flexible ROM: full Teeth: intact Dentures: no upper, no lower Anesthesia Pre-op A/P Labs Hematology Test 09/11/19 04:50 White Blood Count 16.6 K/UL (4.8-10.8) H Red Blood Count 3.79 M/UL (4.20-5.40) L Hemoglobin 10.7 G/DL (12.0-16.0) L Hematocrit 32.4 % (37.0-47.0) L Mean Corpuscular Volume 85 FL (80-99) Mean Corpuscular Hemoglobin 28.3 PG (27.0-31.0) Mean Corpuscular Hemoglobin Concent 33.2 G/DL (32.0-36.0) Red Cell Distribution Width 16.2 % (11.6-14.8) H Platelet Count 441 K/UL (150-450) Mean Platelet Volume 4.8 FL (6.5-10.1) L Neutrophils (%) (Auto) 80.6 % (45.0-75.0) H Lymphocytes (%) (Auto) 12.8 % (20.0-45.0) L Monocytes (%) (Auto) 4.6 % (1.0-10.0) Eosinophils (%) (Auto) 1.1 % (0.0-3.0) Basophils (%) (Auto) 0.9 % (0.0-2.0) Chemistry Test 09/11/19 04:50 Sodium Level 146 MMOL/L (136-145) H Potassium Level 3.4 MMOL/L (3.5-5.1) L Chloride Level 110 MMOL/L (98-107) H Carbon Dioxide Level 26 MMOL/L (21-32) Anion Gap 10 mmol/L (5-15) Blood Urea Nitrogen 3 mg/dL (7-18) L Creatinine 0.8 MG/DL (0.55-1.30) Estimat Glomerular Filtration Rate > 60 mL/min (>60) Glucose Level 96 MG/DL (74-106) Calcium Level 8.4 MG/DL (8.5-10.1) L Total Bilirubin 0.2 MG/DL (0.2-1.0) Aspartate Amino Transf (AST/SGOT) 27 U/L (15-37) Alanine Aminotransferase (ALT/SGPT) 35 U/L (12-78) Alkaline Phosphatase 65 U/L (46-116) Total Protein 6.9 G/DL (6.4-8.2) Albumin 2.1 G/DL (3.4-5.0) L Globulin 4.8 g/dL Albumin/Globulin Ratio 0.4 (1.0-2.7) L Urine Test Test 09/10/19 20:30 Urine HCG, Qualitative Negative (NEGATIVE) Risk Assessment & Plan Assessment: ASA 2 Plan: GA with ETT Pre-Antibiotics Drug: ANcef 1gr Given Within 1 Hr of Incision: Yes Time Given: 11:32 Kannan Hansen MD Sep 11, 2019 11:59
[2019-09-11] MEDS ORDERED: Ketorolac 30mg Inj IV PRN (12:00)
[2019-09-11] MEDS ORDERED: DiphenhydrAMINE 50mg/ml Inj IVP PRN (12:00)
[2019-09-11] MEDS ORDERED: Midazolam 2mg/2ml Inj IVP PRN (12:00)
[2019-09-11] MEDS ORDERED: Hydromorphone 0.5mg/0.5ml inj IVP PRN ×2 (12:00→13:15)
[2019-09-11] MEDS ORDERED: Metoclopramide 10mg/2ml Inj IVP PRN (12:00)
[2019-09-11] MEDS ORDERED: Meperidine 25mg/0.5ml Inj (FOR RIGORS ONLY) IV PRN (12:00)
[2019-09-11] MEDS ORDERED: Acetaminophen (Non formulary) 100 ML IV ONE (12:00)
[2019-09-11] MEDS ORDERED: LR 1000ml 1,000 ML IVLG SCH (12:00)
[2019-09-11] MEDS ORDERED: Glycopyrrolate 0.2mg/ml 1ml Vial ONE (12:03)
[2019-09-11] MEDS ORDERED: Neostigmine 1mg/ml 10ml Inj ONE (12:03)
[2019-09-11] MEDS ORDERED: Sodium Chloride 10ml vial INJ ONE (12:03)
[2019-09-11] MEDS ORDERED: Morphine Sulfate 10mg/ml Inj ONE (12:03)
--- NOTE | 2019-09-11 13:07 | Immediate Post-Op Evaluation ---
Immediate Post-Op Evalulation Immediate Post-Op Evalulation Procedure: Open abdominal myomectomy Date of Evaluation: Sep 11, 2019 Time of Evaluation: 13:06 IV Fluids: 1200 Blood Products: none Estimated Blood Loss: 150 Urinary Output: 300 Blood Pressure Systolic: 136 Blood Pressure Diastolic: 58 Pulse Rate: 106 Respiratory Rate: 22 O2 Sat by Pulse Oximetry: 99 Temperature (Fahrenheit): 97.6 Pain Score (1-10): 2 Nausea: No Vomiting: No Complications none Patient Status: awake, patent, extubated, none Hydration Status: adequate Kannan Hansen MD Sep 11, 2019 13:07
--- NOTE | 2019-09-11 13:12 | Brief Operative Note ---
Immediate Post Operative Note Operative Note Pre-op Diagnosis: sepsis infected fibroid abdominal pain Procedure: exploratory laparotomy open lysis of adhesions Post-op Diagnosis: same as pre-op Surgeon: juan jose smith Additional Surgeons: Kumar Valdivia Anesthesia: general Specimen: yes Complications: none Condition: stable Fluids: see records Estimated Blood Loss: volume Drains: none Implant(s) used?: No Juan Jose Smith Sep 11, 2019 13:12
[2019-09-11] MEDS ORDERED: DiphenhydrAMINE 25mg Tab ORAL PRN (13:15)
[2019-09-11] MEDS ORDERED: Milk of Magnesia 30ml Ud ORAL PRN (13:15)
[2019-09-11] MEDS ORDERED: Sennosides 8.6mg tab ORAL PRN (13:15)
--- NOTE | 2019-09-11 14:05 | Consultation ---
History of Present Illness General Date patient seen: Sep 11, 2019 Reason for Hospitalization: Fever Present Illness HPI This is a 44 year old female with past medical history of uterine fibroids s/p uterine artery embolization and s/p myomectomy and hysteroscopy. 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 during hospitalization imaging ordered and labs with worsening leukocytosis. febrile and not improving on abx / medical management. surgery called to evaluate and assist with care. patient seen, chart reviewed, patient examined. c/o abd pain and fevers Allergies: Coded Allergies: FLUCONAZOLE (Verified Allergy, Unknown, Rash, 09/05/19) COVID-19 Screening Contact w/high risk pt: No Recent Travel to affected area: No Experienced COVID-19 symptoms?: Yes COVID-19 symptoms experienced: Fever (T>100.4F or >38C), Flu-Like Symptoms Medication History Miscellaneous Medications Methotrexate Sodium* (Methotrexate*), 2.5 MG PO, (Reported) Patient History History Provided By: Patient, Medical Record, PMD Healthcare decision maker Resuscitation status Full Code Advanced Directive on File Past Medical/Surgical History Past Medical/Surgical History: (1) Abdominal pain (2) Urinary tract infection (3) Acute febrile illness (4) Acute febrile illness (5) Uterine fibroids affecting (6) Uterine fibroid (7) History of myomectomy (8) Status post embolization of uterine artery Review of Systems Review of Symptoms General ROS: no weight loss ++ fever Psychological ROS: no depression or mood changes, no memory loss Ophthalmic ROS: no visual changes or eye irritation ENT ROS: no nasal congestion, hearing loss, dizziness Allergy and Immunology ROS: no allergic symptoms or urticaria Hematological and Lymphatic ROS: no swollen glands, unusual bleeding or bruising Endocrine ROS: no polyuria, polydipsia, weight changes, temperature intolerance Respiratory ROS: no cough, shortness of breath, or wheezing Cardiovascular ROS: no chest pain or dyspnea on exertion Gastrointestinal ROS: cramping abdominal pain, bright red blood in stool. Musculoskeletal ROS: no myalgias or arthralgias Neurological ROS: no TIA or stroke symptoms Dermatological ROS: no new or changing skin lesions, rashes or pruritis Physical Exam Physical Exam General appearance: alert, cooperative, no distress, appears stated age Head: Normocephalic, without obvious abnormality, atraumatic Eyes: conjunctivae/corneas clear. PERRL, EOM's intact. Fundi benign Throat: Lips, mucosa, and tongue normal. Teeth and gums normal Neck: supple, symmetrical, trachea midline, no adenopathy, thyroid: not enlarged, symmetric, no tenderness/mass/nodules, no carotid bruit and no JVD Lungs: clear to auscultation bilaterally Heart: regular rate and rhythm, S1, S2 normal, no murmur, click, rub or gallop Abdomen: soft, tender. Bowel sounds normal. pelvic mass, no organomegaly Extremities: extremities normal, atraumatic, no cyanosis or edema Pulses: 2+ and symmetric Skin: Skin color, texture, turgor normal. No rashes or lesions Neurologic: Grossly normal Last 24 Hour Vital Signs Date Time Temp Pulse Resp B/P (MAP) Pulse Ox O2 Delivery O2 Flow Rate FiO2 09/11/19 13:42 103 16 140/92 100 Nasal Cannula 3 09/11/19 13:26 100 22 147/91 100 Simple Mask 6 09/11/19 13:16 101 20 141/90 100 Simple Mask 6 09/11/19 13:07 106 22 99 09/11/19 13:06 100 15 134/90 100 Simple Mask 6 09/11/19 13:01 102 15 147/99 100 Simple Mask 6 09/11/19 12:56 98.3 106 22 136/72 100 Simple Mask 6 09/11/19 08:00 Room Air 09/11/19 08:00 98.3 74 18 143/85 (104) 97 09/11/19 00:00 98.2 97 18 121/77 (92) 97 09/10/19 21:48 99.0 09/10/19 21:00 Room Air 09/10/19 20:00 100.4 100 18 132/72 (92) 98 09/10/19 16:00 98.0 80 20 131/65 (87) 98 Intake and Output 09/10/19 09/11/19 19:00 07:00 # Voids 3 Laboratory Tests Test 09/10/19 20:30 09/11/19 04:50 Urine Color Pale yellow Urine Appearance Cloudy Urine pH 6 (4.5-8.0) Urine Specific [place] 1.010 (1.005-1.035) Urine Protein 2+ (NEGATIVE) H Urine Glucose (UA) Negative (NEGATIVE) Urine Ketones Negative (NEGATIVE) Urine Blood 5+ (NEGATIVE) H Urine Nitrite Negative (NEGATIVE) Urine Bilirubin Negative (NEGATIVE) Urine Urobilinogen Normal MG/DL (0.0-1.0) Urine Leukocyte Esterase 3+ (NEGATIVE) H Urine RBC 5-10 /HPF (0 - 2) H Urine WBC Tntc /HPF (0 - 2) H Urine Squamous Epithelial Cells Occasional /LPF Urine Bacteria Moderate /HPF (NONE) H Urine Yeast Many /HPF (NONE) H Urine HCG, Qualitative Negative (NEGATIVE) White Blood Count 16.6 K/UL (4.8-10.8) H Red Blood Count 3.79 M/UL (4.20-5.40) L Hemoglobin 10.7 G/DL (12.0-16.0) L Hematocrit 32.4 % (37.0-47.0) L Mean Corpuscular Volume 85 FL (80-99) Mean Corpuscular Hemoglobin 28.3 PG (27.0-31.0) Mean Corpuscular Hemoglobin Concent 33.2 G/DL (32.0-36.0) Red Cell Distribution Width 16.2 % (11.6-14.8) H Platelet Count 441 K/UL (150-450) Mean Platelet Volume 4.8 FL (6.5-10.1) L Neutrophils (%) (Auto) 80.6 % (45.0-75.0) H Lymphocytes (%) (Auto) 12.8 % (20.0-45.0) L Monocytes (%) (Auto) 4.6 % (1.0-10.0) Eosinophils (%) (Auto) 1.1 % (0.0-3.0) Basophils (%) (Auto) 0.9 % (0.0-2.0) Sodium Level 146 MMOL/L (136-145) H Potassium Level 3.4 MMOL/L (3.5-5.1) L Chloride Level 110 MMOL/L (98-107) H Carbon Dioxide Level 26 MMOL/L (21-32) Anion Gap 10 mmol/L (5-15) Blood Urea Nitrogen 3 mg/dL (7-18) L Creatinine 0.8 MG/DL (0.55-1.30) Estimat Glomerular Filtration Rate > 60 mL/min (>60) Glucose Level 96 MG/DL (74-106) Calcium Level 8.4 MG/DL (8.5-10.1) L Total Bilirubin 0.2 MG/DL (0.2-1.0) Aspartate Amino Transf (AST/SGOT) 27 U/L (15-37) Alanine Aminotransferase (ALT/SGPT) 35 U/L (12-78) Alkaline Phosphatase 65 U/L (46-116) Total Protein 6.9 G/DL (6.4-8.2) Albumin 2.1 G/DL (3.4-5.0) L Globulin 4.8 g/dL Albumin/Globulin Ratio 0.4 (1.0-2.7) L Height (Feet): 5 Height (Inches): 3.00 Weight (Pounds): 165 Medications Current Medications Medications (Trade) Dose Ordered Sig/Mitchel Route PRN Reason Start Time Stop Time Status Last Admin Dose Admin Acetaminophen (Tylenol) 650 mg Q6H PRN ORAL Temp >100.5 09/05/19 23:00 10/05/19 22:59 09/10/19 21:18 Acetaminophen/ Hydrocodone Bitart ([place] 5/325) 1 tab Q6H PRN ORAL For Pain 09/05/19 23:00 09/12/19 22:59 09/09/19 16:07 Al Hydroxide/Mg Hydroxide (Mylanta) 15 ml Q6H PRN ORAL DYSPEPSIA 09/11/19 13:15 10/11/19 13:14 UNV Barium Sulfate (Readi-Cat 2) 450 ml NOW PRN ORAL Radiology Procedure 09/10/19 09:15 09/12/19 09:07 Diphenhydramine HCl (Benadryl) 25 mg Q15M PRN IVP Itching 09/11/19 12:00 09/11/19 18:00 Diphenhydramine HCl (Benadryl) 25 mg Q8H PRN ORAL Itching/Pruritis 09/11/19 13:15 10/11/19 13:14 UNV Docusate Sodium (Colace) 100 mg TWICE A DAY ORAL 09/11/19 18:00 10/11/19 17:59 UNV Heparin Sodium (Porcine) (Heparin 5000 units/ml) 5,000 units EVERY 12 HOURS SUBQ 09/06/19 09:00 10/21/19 08:59 09/10/19 21:15 Hydromorphone HCl (Dilaudid) 0.5 mg Q3H PRN IVP Pain Score 1-3 09/11/19 13:15 09/18/19 13:14 UNV Hydromorphone HCl (Dilaudid) 0.5 mg Q5M PRN IVP Severe Pain (Pain Scale 7-10) 09/11/19 12:00 09/11/19 18:00 09/11/19 13:42 Hydromorphone HCl (Dilaudid) 1 mg Q3H PRN IVP pain score 4-6 09/11/19 13:15 09/18/19 13:14 UNV Iohexol (OMNIPAQUE-300 100ml) 100 ml NOW PRN INJ Radiology Procedure 09/10/19 09:15 09/12/19 09:07 Iron Sucrose 100 mg/Sodium Chloride 60 ml @ 240 mls/hr BEDTIME IV 09/07/19 21:00 09/11/19 21:14 09/10/19 21:07 Ketorolac Tromethamine (Toradol 30mg) 30 mg Q1H PRN IV Severe Breakthru Pain (>7) 09/11/19 12:00 09/11/19 16:00 Lactated Ringer's 1,000 ml @ 10 mls/hr Q24H IVLG 09/11/19 12:00 09/11/19 18:00 Magnesium Hydroxide (Mom) 30 ml BIDPRN PRN ORAL Constipation 09/11/19 13:15 10/11/19 13:14 UNV Meperidine HCl (Demerol) 25 mg Q15M PRN IV Shivering 09/11/19 12:00 09/11/19 18:00 Metoclopramide HCl (Reglan) 10 mg Q1H PRN IVP Nausea & Vomiting 09/11/19 12:00 09/11/19 18:00 Midazolam HCl (Versed 2mg/2ml vial) 1 mg Q15M PRN IVP For Anxiety 09/11/19 12:00 09/11/19 18:00 Ondansetron HCl (Zofran) 4 mg Q6H PRN IVP Nausea & Vomiting 09/11/19 13:15 10/11/19 13:14 UNV Piperacillin Sod/ Tazobactam Sod 3.375 gm/Dextrose 100 ml @ 25 mls/hr EVERY 8 HOURS IVPB 09/10/19 22:00 09/15/19 21:59 09/11/19 05:42 Sennosides (Senokot) 8.6 mg BIDPRN PRN ORAL Constipation 09/11/19 13:15 10/11/19 13:14 UNV Sodium Chloride 1,000 ml @ 100 mls/hr Q10H IV 09/06/19 03:30 10/05/19 22:59 09/11/19 03:10 Zolpidem Tartrate (Ambien) 5 mg HSPRN PRN ORAL Insomnia 09/10/19 15:56 09/17/19 15:55 Assessment/Plan Problem List: (1) Acute febrile illness Assessment & Plan: febrile leukocytosis septic not improving on abx likely etiology intraabdominal and fibroid infected possible other source in abx ICD Codes: R50.9 - Fever, unspecified SNOMED: 574281266 (2) Uterine fibroid Assessment & Plan: likely etiology intraabdominal and fibroid infected possible other source in abx ICD Codes: D25.9 - Leiomyoma of uterus, unspecified SNOMED: 87808401 (3) Abdominal pain Assessment & Plan: not improving on medical management likely etiology intraabdominal and fibroid infected possible other source in abx agree with exploration will be available to explore abdomen thank you will follow with recs Again demonstrated is an enlarged uterus with multiple low-attenuation lesions that presumably represent infarcted fibroids. One of the larger fibroids again contains multiple gas bubbles. However, the amount of gas is overall decreased from the prior study. The most cephalad gas bubble may be within the endometrial space, but this likewise appears diminished from the prior exam. Currently evident, however, not evident previously is a single gas bubble at the expected level of the endocervical canal. The overall size of the uterus and fibroids is unchanged. The uterine myometrium appears to enhance normally. Contrast opacifies most of the colon, which is normal in caliber without evidence of wall thickening. As previously, there is a masslike area in the left side of the pelvis. This probably just represents a combination of redundant tortuous colon and possibly the left ovary. There is focal prominence in caliber and possible wall thickening of a single short segment of proximal jejunum. The small bowel is otherwise normal in caliber without wall thickening. The distal esophagus, stomach, duodenum are unremarkable. No free or loculated intraperitoneal gas or fluid. There is a tiny umbilical hernia which contains only fat. The liver, gallbladder, bile ducts, pancreas, spleen, adrenals are unremarkable. There are prominent but not frankly enlarged retroperitoneal nodes. No pelvic adenopathy. The included lung bases demonstrate some atelectatic changes bilaterally. The bones demonstrate degenerative spondylosis changes. Impression: Decreased gas within one of the larger infarcted fibroids. This suggests resolving expected postoperative gas. No evidence of active infection elsewhere. Prominent left pelvic structure. This probably just represents a prominent left ovary in combination with a loop of colon. Prominent but not frankly enlarged retroperitoneal nodes Minimal basilar atelectasis Mild degenerative spondylosis Incidental finding of small fat-containing abdominal hernia ICD Codes: R10.9 - Unspecified abdominal pain SNOMED: [id number] Juan Jose Smith Sep 11, 2019 14:05
--- NOTE | 2019-09-11 14:22 | NUR ---
*-* INSURANCE *-* UPDATED CLINICALS AND REVIEWS HAVE BEEN FAXED TO: PAUL FAX ALL CLINICALS TO [phone]
[2019-09-11] MEDS ORDERED: Labetalol 5mg/ml 20ml vial IV PRN (14:30)
--- NOTE | 2019-09-11 15:00 | NUR ---
NURSE NOTES:RECEIVED FR. PACU BY BED S/P OPEN ABDOMINAL MYOMECTOMY UNDER GENERAL ANESTHESIA.REPORT GIVEN BY JAMES JAIMES.PT.ASLEEP BUT AROUSABLE,MOVING ALL EXTREMITIES,NO SIGN OF PAIN.ABDOMINAL DRSNG.C/D/I.VERDUZCO DRAINING YELLOW URINE.PVS WITH IN BASELINE.WILL CONTINUE PLAN OF CARE.
--- NOTE | 2019-09-11 15:22 | 48 Hour Post Anesthesia Eval ---
Post Anesthesia Evaluation Procedure: Open abdominal myomectomy Date of Evaluation: Sep 11, 2019 Time of Evaluation: 15:21 Blood Pressure Systolic: 124 0: 56 Pulse Rate: 102 Respiratory Rate: 22 Temperature (Fahrenheit): 97.8 O2 Sat by Pulse Oximetry: 98 Airway: patent Nausea: No Vomiting: No Pain Intensity: 3 Hydration Status: adequate Cardiopulmonary Status: stable Mental Status/LOC: patient returned to baseline Follow-up Care/Observations: n/a Post-Anesthesia Complications: none Follow-up care needed: N/A Kannan Hansen MD Sep 11, 2019 15:22
--- NOTE | 2019-09-11 15:56 | NUR ---
CASE MANAGEMENT: REVIEW 09/11/2019 SI:ACUTE FEBRILE ILLNESS. Acute cystitis with hematuria. 98.3 74 18 143/85 97% ON RA WBC 16.6 NA+ 146 K+ 3.4 ALBUMIN 2.1 IS:IN SURGERY NOW FOR MYOMECTOMY OPEN TODAY IV NS @100 ML/HR IV ZOSYN Q8HR IV VENOFER X5BAGS HEPARIN SQ BID TYLENOL PO Q6HR/PRN NORCO PO Q6HR/PRN IV DEMEROL Q15M/PRN X2 DOSES (FOR SHIVERING) \: 3E MED/SURG DCP: HOME WHEN STABLE PLAN: CONTROL PAIN
--- NOTE | 2019-09-11 16:29 | Pulmonology Progress Note ---
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 Sinus tachycardia -resolved Suspected CoVID19 infection -ruled out Symptomatic uterine fibroids with hx of recent myomectomy, and prior uterine artery embolization Nausea, vomiting and diarrhea , possible gastroenteritis -gardually resolving ( stool C dif NGT) Anemia Rheumatoid arthritis Mild hypokalemia PLAN OF CARE MS floor REYNA-COV-2 by PCR-NGT off isolation IVF BCX + E coli UCX +Ecoli, SCX + E coli repeated BCX NGTD now I D follows back to [facility] CT A/P with IV contrast r/o abscess -negative still with fevers, leuk trending up s/p abd myomectomy today 09/10 pain management monitor HH with goal to keep Hgb above 7 ; started on IV iron per VISITOR SERVICES ASSOCIATE, HH at baseline till 09/10 x 5 bags DVT /GI prophylaxis a/emetic prn, CL for now ST was likely due to fever and possible mild dehydration -resolved no nausea, stool formed, probably also had mild gastroenteritis , resolved stool C dif NGT case discussed and evaluated by supervising physician Subjective Allergies: Coded Allergies: FLUCONAZOLE (Verified Allergy, Unknown, Rash, 09/05/19) Subjective s/p exp lap with abd myomectomy today due to necrotic myoma awake, mild discomfort Objective Last 24 Hour Vital Signs Date Time Temp Pulse Resp B/P (MAP) Pulse Ox O2 Delivery O2 Flow Rate FiO2 09/11/19 15:22 102 22 98 09/11/19 14:48 98.1 100 19 126/69 100 Nasal Cannula 3 09/11/19 14:33 120 146/79 09/11/19 14:33 121 20 143/71 100 Nasal Cannula 3 09/11/19 14:30 113 18 143/71 100 Nasal Cannula 3 09/11/19 14:29 97.8 09/11/19 14:15 99 20 148/76 100 Nasal Cannula 3 09/11/19 14:12 98.3 09/11/19 14:00 97 17 132/82 100 Nasal Cannula 3 09/11/19 13:42 103 16 140/92 100 Nasal Cannula 3 09/11/19 13:26 100 22 147/91 100 Simple Mask 6 4/29/20 13:16 101 20 141/90 100 Simple Mask 6 09/11/19 13:07 106 22 99 09/11/19 13:06 100 15 134/90 100 Simple Mask 6 09/11/19 13:01 102 15 147/99 100 Simple Mask 6 09/11/19 12:56 98.3 106 22 136/72 100 Simple Mask 6 09/11/19 08:00 Room Air 09/11/19 08:00 98.3 74 18 143/85 (104) 97 09/11/19 00:00 98.2 97 18 121/77 (92) 97 09/10/19 21:48 99.0 09/10/19 21:00 Room Air 09/10/19 20:00 100.4 100 18 132/72 (92) 98 Intake and Output 09/10/19 09/11/19 19:00 07:00 # Voids 3 Objective General Appearance: WD/WN, no apparent distress, alert Lines, tubes and drains: peripheral HEENT: normocephalic, atraumatic, anicteric, mucous membranes moist, PERRL Neck: supple, normal inspection Respiratory/Chest: chest wall non-tender, lungs clear, no respiratory distress Cardiovascular/Chest: normal rate, regular rhythm Abdomen: large dressing C/D/I, soft, mild distention , hypoactive BS Extremities: normal range of motion, no calf tenderness, normal capillary refill Skin Exam: normal pigmentation, warm/dry Neurologic: maintenance advisor II-XII grossly normal, no motor/sensory deficits, alert, oriented x 3 Musculoskeletal: normal muscle bulk Laboratory Tests 09/10/19 20:30: Urine Color Pale yellow, Urine Appearance Cloudy, Urine pH 6, Urine Specific [place] 1.010, Urine Protein 2+H, Urine Glucose (UA) Negative, Urine Ketones Negative, Urine Blood 5+H, Urine Nitrite Negative, Urine Bilirubin Negative, Urine Urobilinogen Normal, Urine Leukocyte Esterase 3+H, Urine RBC 5-10H, Urine WBC TntcH, Urine Squamous Epithelial Cells Occasional, Urine Bacteria ModerateH , Urine Yeast ManyH, Urine HCG, Qualitative Negative 09/11/19 04:50: White Blood Count 16.6H, Red Blood Count 3.79L, Hemoglobin 10.7L, Hematocrit 32.4L, Mean Corpuscular Volume 85, Mean Corpuscular Hemoglobin 28.3, Mean Corpuscular Hemoglobin Concent 33.2, Red Cell Distribution Width 16.2H, Platelet Count 441, Mean Platelet Volume 4.8L, Neutrophils (%) (Auto) 80.6H, Lymphocytes (%) (Auto) 12.8L, Monocytes (%) (Auto) 4.6, Eosinophils (%) (Auto) 1.1, Basophils (%) (Auto) 0.9, Sodium Level 146H, Potassium Level 3.4L, Chloride Level 110H, Carbon Dioxide Level 26, Anion Gap 10, Blood Urea Nitrogen 3L, Creatinine 0.8, Estimat Glomerular Filtration Rate > 60, Glucose Level 96, Calcium Level 8.4L, Total Bilirubin 0.2, Aspartate Amino Transf (AST/SGOT) 27, Alanine Aminotransferase (ALT/SGPT) 35, Alkaline Phosphatase 65, Total Protein 6.9, Albumin 2.1L, Globulin 4.8, Albumin/Globulin Ratio 0.4L Current Medications Medications (Trade) Dose Ordered Sig/Mitchel Route PRN Reason Start Time Stop Time Status Last Admin Dose Admin Acetaminophen (Tylenol) 650 mg Q6H PRN ORAL Temp >100.5 09/05/19 23:00 10/05/19 22:59 09/10/19 21:18 Acetaminophen/ Hydrocodone Bitart ([place] 5/325) 1 tab Q6H PRN ORAL For Pain 09/05/19 23:00 09/12/19 22:59 09/09/19 16:07 Al Hydroxide/Mg Hydroxide (Mylanta) 15 ml Q6H PRN ORAL DYSPEPSIA 09/11/19 13:15 10/11/19 13:14 Barium Sulfate (Readi-Cat 2) 450 ml NOW PRN ORAL Radiology Procedure 09/10/19 09:15 09/12/19 09:07 Diphenhydramine HCl (Benadryl) 25 mg Q8H PRN ORAL Itching/Pruritis 09/11/19 13:15 10/11/19 13:14 Docusate Sodium (Colace) 100 mg TWICE A DAY ORAL 09/11/19 18:00 10/11/19 17:59 Heparin Sodium (Porcine) (Heparin 5000 units/ml) 5,000 units EVERY 12 HOURS SUBQ 09/06/19 09:00 10/21/19 08:59 09/10/19 21:15 Hydromorphone HCl (Dilaudid) 0.5 mg Q3H PRN IVP Pain Score 1-3 09/11/19 13:15 09/18/19 13:14 Hydromorphone HCl (Dilaudid) 1 mg Q3H PRN IVP pain score 4-6 09/11/19 13:15 09/18/19 13:14 Iohexol (OMNIPAQUE-300 100ml) 100 ml NOW PRN INJ Radiology Procedure 09/10/19 09:15 09/12/19 09:07 Iron Sucrose 100 mg/Sodium Chloride 60 ml @ 240 mls/hr BEDTIME IV 09/07/19 21:00 09/11/19 21:14 09/10/19 21:07 Magnesium Hydroxide (Mom) 30 ml BIDPRN PRN ORAL Constipation 09/11/19 13:15 10/11/19 13:14 Ondansetron HCl (Zofran) 4 mg Q6H PRN IVP Nausea & Vomiting 09/11/19 13:15 10/11/19 13:14 Piperacillin Sod/ Tazobactam Sod 3.375 gm/Dextrose 100 ml @ 25 mls/hr EVERY 8 HOURS IVPB 09/10/19 22:00 09/15/19 21:59 09/11/19 05:42 Sennosides (Senokot) 8.6 mg BIDPRN PRN ORAL Constipation 09/11/19 13:15 10/11/19 13:14 Sodium Chloride 1,000 ml @ 100 mls/hr Q10H IV 09/06/19 03:30 10/05/19 22:59 09/11/19 03:10 Zolpidem Tartrate (Ambien) 5 mg HSPRN PRN ORAL Insomnia 09/10/19 15:56 09/17/19 15:55 Mckay Goel MD 09/11/19 1723: Assessment/Plan Assessment/Plan Patient seen and examined with ORACLE ANALYST. Agree with A&P as outlined above as it reflects our joint deliberations. S/P ex-lap, back from OR. D/W Dr. Zheng Subjective Allergies: Coded Allergies: FLUCONAZOLE (Verified Allergy, Unknown, Rash, 09/05/19) Susan Morales ORACLE ANALYST Sep 11, 2019 16:29 Mckay Goel MD Sep 11, 2019 17:23
[2019-09-11] MEDS: Docusate 100mg cap ORAL SCH (18:00)
--- NOTE | 2019-09-11 18:40 | NUR ---
NURSE NOTES:HAVING DINNER,ENCOURAGED RE:PO INTAKE.IS AT BEDSIDE,INSTRUCTED BY RT.NO C/O PAIN.
--- NOTE | 2019-09-11 19:11 | NUR ---
HAND-OFF: Report given to ULICES SINGHPTSanto CANO.
--- NOTE | 2019-09-11 19:15 | NUR ---
NURSE NOTES: Receive a report from FIONA Keller. Round is done. Pt is awake and alert. No acute distress noted. Pain is tolerating at this time. Surgery site kept dry and clean but blood discharge on perineal pad. Reeducate post-op care including I/S. Pt verbalizes understanding. Concentrated urine is patent via estrada catheter. Call light within reach. Will continue to monitor.
--- NOTE | 2019-09-11 20:14 | Operative Note - Dictated ---
DATE OF OPERATION: 09/11/2019 PREOPERATIVE DIAGNOSES: 1. Infected uterine fibroid. 2. Abdominal pain. 3. Sepsis. POSTOPERATIVE DIAGNOSES: 1. Infected uterine fibroid. 2. Abdominal pain. 3. Sepsis. OPERATION PERFORMED: 1. Exploratory laparotomy. 2. Open lysis of adhesions. ATTENDING SURGEON: Juan Jose Smith MD. ADDITIONAL SURGEON: Kumar Zheng MD. ANESTHESIA: General GETA. ESTIMATED BLOOD LOSS: Minimal. IV FLUIDS: Please see anesthesia records. COMPLICATIONS: None. DRAINS: None. COUNTS: Sponge and needle count correct x2. SPECIMENS: Yes. INDICATIONS FOR PROCEDURE: This is a 44-year-old female who recently had ablation of uterine fibroids, who has been admitted to [facility] for few days postoperative pain. Evaluation identified to have fevers, leukocytosis, , worsening with abdominal discomfort and pain. Potential etiologies including intra-abdominal pathology, infected fibroid, potentially appendicitis, bowel issues. Given these findings, Dr. Kumar Zheng spoke to the patient in regards to surgical intervention and explained surgical planning, risks, benefits, and alternatives with the patient. Dr. Zheng asked me to join for exploration of the abdomen as well as potential lysis of adhesions given the recent procedure as well as potential intervention if other abdominal pathology identified. Consent was obtained. OPERATIVE NOTE: The patient was taken to the operating room and placed on the operating table in supine position with bilateral arms out. All bony prominences were well padded. SCDs were placed. Preoperative time-out taken identifying the patient, procedure, operative staff, and surgical staff. Tompkins catheter was inserted in standard surgical sterile technique. The patient already on scheduled IV antibiotics for acute active inflammatory process given her sepsis. General anesthesia was induced and the patient was intubated. The abdomen was clipped, prepped, draped in standard surgical fashion. We began by making a Pfannenstiel incision, carried down through the skin and subcutaneous tissue to the fascia. The fascia was incised and the muscles were identified. The muscles were divided in the midline and entry into the abdomen was obtained without complication. At this time, a large uterus with multiple fibroids were identified. The abdomen was explored. The appendix was identified to be normal as well as the cecum. Small bowel normal but fair amount of adhesions of the small bowel and omentum to the inflamed uterus. Lysis of adhesions was performed using blunt dissection as well as Metzenbaum scissors. Once all adhesions from the dome and the posterior aspect of the uterus and fibroids were dissected freely without complication, the uterus was brought into the operative field through the incision. There was a very large uterus with multiple fibroids/myomata. At this time, Dr. Kumar Zheng took over and multiple myomectomies were performed. Please see Dr. Kumar Zheng operative report for details. Once Dr. Zheng's portion of the procedure was completed, the uterus was returned to the abdomen in anatomical position. The abdomen was irrigated and suctioned clean. Abdomen was reinspected. No other abnormalities or injuries were identified. No other pathology was identified. At this time, we began the closure of the abdomen beginning with reapproximation of the muscles in the peritoneal lining using interrupted 0 chromic sutures. The fascia was then reapproximated using 0 running looped PDS suture. Skin incision was reapproximated using surgical anthony. Incision was cleansed prior to closure. Dressings were applied. The patient tolerated procedure well, was extubated, taken to postanesthesia care unit in stable condition. Juan Jose Smith M.D. DR: Shawna JOB#: [id number] CC:
[2019-09-11] MEDS: HYDROmorphone 1mg/ml Carpuject IVP PRN (20:29)
--- NOTE | 2019-09-11 20:30 | NUR ---
NURSE NOTES: Noted BT 100.7 without chilling sense but febrile. Given Tylenol 650mg po and cooling measures. Will continue to monitor.
[2019-09-11] MEDS: Iron Sucrose 100 MG in NS 55 ML IV SCH (20:31)
--- NOTE | 2019-09-11 22:00 | NUR ---
NURSE NOTES: Done changing perineal pad. Pain is controlled after prn pain medication. No N/V noted. BT rechecked as 98.3. Spo2; 97% in RA. Will continue to monitor.
--- NOTE | 2019-09-11 23:30 | Operative Note - Dictated ---
DATE OF OPERATION: 09/11/2019 SURGEON: Kumar Zheng MD CO-SURGEON: Juan Jose Smith MD ANESTHESIA: General endotracheal. ANESTHESIOLOGIST: Kannan Hansen MD PREOPERATIVE DIAGNOSIS: Necrotic infected uterine myoma. POSTOPERATIVE DIAGNOSIS: Necrotic infected uterine myoma plus extensive pelvic adhesions. PROCEDURES: 1. Lysis of adhesions. 2. Exploration of abdominal cavity by Dr. Smith (dictated by Dr. Smith in a separate procedure). 3. Multiple myomectomy (difficult). ESTIMATED BLOOD LOSS: 100 mL. COUNT: Sponge and needle count correct x2. INDICATIONS AND FINDINGS: The patient is a 44-year-old female who had undergone a hysteroscopy a week prior to admission. She had hysteroscopic resection of myoma who presented to the emergency room at [facility] with elevated temperature and she was admitted to be treated with intravenous antibiotics. The patient slowly defervesced but prior to surgery an increase in her white count and increase in the temperature curve. Extensive discussion was undertaken with the patient, alternatives including further antibiotic therapy, abdominal hysterectomy were all discussed. The patient elects to go ahead with the procedure as discussed as outlined in her consent. FINDINGS: At the time of surgery included enlarged irregular uterus with multiple myomata. The patient's adhesions were lysed by Dr. Smith as well as an exploration of the abdominal cavity to look for other source of possible infection. Following the lysis of adhesions, the myomectomies were performed. The uterus was removed through a Pfannenstiel incision and dilute Pitressin placed on the anterior surface of the uterus, which was entered sharply. Necrotic myoma consistent with the patient's imaging findings and history was noted. Cultures were obtained. The patient had multiple other leiomyomata which were excised and sent for pathologic evaluation. Time of myomectomy was 60 minutes. There was no evidence of disruption in genitourinary or gastrointestinal tract. Bleeding was minimal. At the end of the procedure, the urine was clear. PROCEDURE IN DETAIL: Under general endotracheal anesthesia, the patient prepped and draped, placed in the dorsal position. A Pfannenstiel incision was used to enter the abdominal cavity. The uterus was delivered from the incision and dilute Pitressin injected into the serosa. The patient's anterior uterine wall was excised down to the level of the endometrial cavity where the necrotic myoma was found. Cultures were sent and the myoma was removed with both sharp and blunt dissection. Bleeding points were fulgurated and tolerated. The suture throughout this procedure is #1 chromic, not otherwise specified. The endometrial cavity was then abraded with a lap sponge to remove as much necrotic material as possible. Two other subserous myomata, both being approximately 5 to 6 cm were removed. The patient had pedunculated subserous myomata x3 which were also removed. The tubes and ovaries were normal. There was no evidence of abscess or infection. The uterus was then closed. The deep sutures of interrupted #1 Vicryl suture was used to close off the space. Mattress sutures used were appropriate including the serosa. the uterus was closed in three layers. The incision lines were then closed with running locking sutures of #1 Vicryl. Copious irrigation showed no continued bleeding. The rectus muscle was approximated with individual sutures of #1 chromic. The fascia was then closed with a running locking suture of PDS #1. Subcutaneous tissue approximation was performed with interrupted 3-0 catgut. The skin was closed with anthony and half-inch Steri-Strips. The incision was dry. Urine was clear at the end of the case. Vital signs were stable. The patient left the operating room in stable condition. Kumar Zheng M.D. DR: Elda JOB#: [id number] CC: [place]
[2019-09-12] VITALS: BP 120/70
[2019-09-12] MEDS: HYDROmorphone 1mg/ml Carpuject IVP PRN ×5 (00:32→19:58)
[2019-09-12 04:00] VITALS: BP 138/76
--- NOTE | 2019-09-12 05:00 | NUR ---
NURSE NOTES: No acute distress noted. Pain is controlled by prn pain medication. BT: 99.4 F. No chilling or febrile sensation noted. On ice cooling. Will continue to monitor.
--- NOTE | 2019-09-12 06:00 | NUR ---
NURSE NOTES: No acute distress noted. Pain relieved after pain medication as ordered. Done changed perineal pad that soaked half. Dressing kept dry and clean. Overnight urine output 380ml. Will continue to monitor.
[2019-09-12 07:11] LABS: HEMATOCRIT 27.9 % (37.0-47.0); HEMOGLOBIN 9.2 G/DL (12.0-16.0); MEAN CORPUSCULAR VOLUME 87 FL (80-99); PLATELET COUNT 474 K/UL (150-450); RED BLOOD COUNT 3.21 M/UL (4.20-5.40); RED CELL DISTRIBUTION WIDTH 16.3 % (11.6-14.8)
[2019-09-12 07:12] LABS: ALANINE AMINOTRANSFERASE 25 U/L (12-78); ALBUMIN 1.8 G/DL (3.4-5.0); ALBUMIN/GLOBULIN RATIO 0.4 (1.0-2.7); ALKALINE PHOSPHATASE 59 U/L (46-116); ANION GAP 9 mmol/L (5-15); ASPARTATE AMINO TRANSFERASE 25 U/L (15-37); BILIRUBIN,TOTAL 0.4 MG/DL (0.2-1.0); BLOOD UREA NITROGEN 5 mg/dL (7-18); CALCIUM 7.7 MG/DL (8.5-10.1); CARBON DIOXIDE 25 MMOL/L (21-32); CHLORIDE 108 MMOL/L (98-107); CREATININE 0.8 MG/DL (0.55-1.30); POTASSIUM 3.4 MMOL/L (3.5-5.1); SODIUM 142 MMOL/L (136-145)
--- NOTE | 2019-09-12 07:15 | NUR ---
NURSE NOTES:BEDSIDE ROUNDS WITH YESICAO RN.PT.AWAKE,AOX4,ROOM AIR,IV SITES X2 INTACT,ABDOMINAL DRSNG /PERIPAD DRY/INTACT.NO CO PAIN.PLAN OF CARE DISCUSSED.
--- NOTE | 2019-09-12 07:15 | NUR ---
HAND-OFF: Report given to FIONA Keller. Round is done.
[2019-09-12 07:28] LABS: WHITE BLOOD COUNT 24.6 K/UL (4.8-10.8)
[2019-09-12] MEDS: Docusate 100mg cap ORAL SCH ×2 (07:54→18:00)
[2019-09-12] MEDS: Heparin 5000 units/ml inj SUBQ SCH ×2 (07:58→22:24)
[2019-09-12 08:00] VITALS: BP 125/85
--- NOTE | 2019-09-12 08:30 | Pulmonology Progress Note ---
Susan Morales SONOGRAPHY TECHNICIAN 09/12/19 0830: Assessment/Plan Assessment/Plan ASSESSMENT Acute febrile illness Sepsis (POA) with E coli bacteremia E coli UTI Necroting myoma s/p abdominal myomectomy 09/10 Sinus tachycardia -resolved Suspected CoVID19 infection -ruled out Symptomatic uterine fibroids with hx of recent myomectomy, and prior uterine artery embolization Nausea, vomiting and diarrhea , possible gastroenteritis -gardually resolving ( stool C dif NGT) Anemia Rheumatoid arthritis Mild hypokalemia PLAN OF CARE MS floor REYNA-COV-2 by PCR-NGT off isolation IVF, added KCL BCX + E coli UCX +Ecoli, SCX + E coli repeated BCX 09/07 and 09/09 NGTD now ID follows back on Zosyn fup with operative cx CT A/P with IV contrast r/o abscess -negative still with fevers, leuk trending up s/p abd myomectomy 09/10 leuk worse IS at the bedside and encourage to use get CXR this am abx - per ID pain management monitor HH with goal to keep Hgb above 7 ; s/ p IV iro x 5 bags DVT /GI prophylaxis a/emetic prn, diet as per surgeon ST was likely due to fever and possible mild dehydration -resolved no nausea, stool formed, probably also had mild gastroenteritis , resolved stool C dif NGT case discussed and evaluated by supervising physician Subjective Allergies: Coded Allergies: FLUCONAZOLE (Verified Allergy, Unknown, Rash, 09/05/19) Subjective s/p exp lap with abd myomectomy 09/10 awake, fevers at night and this am WBC up to 24 Objective Last 24 Hour Vital Signs Date Time Temp Pulse Resp B/P (MAP) Pulse Ox O2 Delivery O2 Flow Rate FiO2 09/12/19 07:15 Room Air 09/12/19 04:00 99.4 107 138/76 (96) 95 09/12/19 00:00 97.8 106 120/70 (87) 95 09/11/19 22:00 98.3 97 09/11/19 21:00 Nasal Cannula 2.0 09/11/19 21:00 99.3 97 09/11/19 20:53 99.3 09/11/19 20:00 100.7 112 132/83 (99) 99 09/11/19 16:00 98.5 109 122/75 (91) 100 09/11/19 15:22 102 22 98 09/11/19 15:00 98.2 112 117/82 (94) 97 09/11/19 14:48 98.1 100 19 126/69 100 Nasal Cannula 3 09/11/19 14:33 120 146/79 09/11/19 14:33 121 20 143/71 100 Nasal Cannula 3 09/11/19 14:30 113 18 143/71 100 Nasal Cannula 3 09/11/19 14:29 97.8 09/11/19 14:15 99 20 148/76 100 Nasal Cannula 3 09/11/19 14:12 98.3 09/11/19 14:00 97 17 132/82 100 Nasal Cannula 3 09/11/19 13:42 103 16 140/92 100 Nasal Cannula 3 09/11/19 13:26 100 22 147/91 100 Simple Mask 6 09/11/19 13:16 101 20 141/90 100 Simple Mask 6 09/11/19 13:07 106 22 99 09/11/19 13:06 100 15 134/90 100 Simple Mask 6 09/11/19 13:01 102 15 147/99 100 Simple Mask 6 09/11/19 12:56 98.3 106 22 136/72 100 Simple Mask 6 Intake and Output 09/11/19 09/12/19 19:00 07:00 Intake Total 1740 ml 1750 ml Output Total 550 ml 380 ml Balance 1190 ml 1370 ml Intake Oral 240 ml 450 ml IV Total 1500 ml 1300 ml Output Urine Total 400 ml 380 ml Estimated Blood Loss 150 ml Objective General Appearance: WD/WN, no apparent distress, alert Lines, tubes and drains: peripheral HEENT: normocephalic, atraumatic, anicteric, mucous membranes moist, PERRL Neck: supple, normal inspection Respiratory/Chest: chest wall non-tender, lungs clear, no respiratory distress Cardiovascular/Chest: normal rate, regular rhythm Abdomen: large dressing C/D/I, soft, mild distention , hypoactive BS Extremities: normal range of motion, no calf tenderness, normal capillary refill Skin Exam: normal pigmentation, warm/dry Neurologic: machine buffer II-XII grossly normal, no motor/sensory deficits, alert, oriented x 3 Musculoskeletal: normal muscle bulk Microbiology Date/Time Source Procedure Growth Status 09/10/19 19:00 Blood Blood Culture - Preliminary NO GROWTH AFTER 24 HOURS Resulted 09/10/19 18:50 Blood Blood Culture - Preliminary NO GROWTH AFTER 24 HOURS Resulted Laboratory Tests 09/12/19 05:40: White Blood Count 24.6*H, Red Blood Count 3.21L, Hemoglobin 9.2L, Hematocrit 27.9L, Mean Corpuscular Volume 87, Mean Corpuscular Hemoglobin 28.5, Mean Corpuscular Hemoglobin Concent 32.8, Red Cell Distribution Width 16.3H, Platelet Count 474H, Mean Platelet Volume 4.4L, Neutrophils (%) (Auto) , Lymphocytes (%) (Auto) , Monocytes (%) (Auto) , Eosinophils (%) (Auto) , Basophils (%) (Auto) , Neutrophils % (Manual) [Pending], Lymphocytes % (Manual) [Pending], Platelet Estimate [Pending], Platelet Morphology [Pending], Sodium Level 142, Potassium Level 3.4L, Chloride Level 108H, Carbon Dioxide Level 25, Anion Gap 9, Blood Urea Nitrogen 5L, Creatinine 0.8, Estimat Glomerular Filtration Rate > 60, Glucose Level 90, Calcium Level 7.7L, Total Bilirubin 0.4 , Aspartate Amino Transf (AST/SGOT) 25, Alanine Aminotransferase (ALT/SGPT) 25, Alkaline Phosphatase 59, Total Protein 6.2L, Albumin 1.8L, Globulin 4.4, Albumin /Globulin Ratio 0.4L Current Medications Medications (Trade) Dose Ordered Sig/Mitchel Route PRN Reason Start Time Stop Time Status Last Admin Dose Admin Acetaminophen (Tylenol) 650 mg Q6H PRN ORAL Temp >100.5 09/05/19 23:00 10/05/19 22:59 09/11/19 20:23 Acetaminophen/ Hydrocodone Bitart ([place] 5/325) 1 tab Q6H PRN ORAL For Pain 09/05/19 23:00 09/12/19 22:59 09/09/19 16:07 Al Hydroxide/Mg Hydroxide (Mylanta) 15 ml Q6H PRN ORAL DYSPEPSIA 09/11/19 13:15 10/11/19 13:14 Barium Sulfate (Readi-Cat 2) 450 ml NOW PRN ORAL Radiology Procedure 09/10/19 09:15 09/12/19 09:07 Diphenhydramine HCl (Benadryl) 25 mg Q8H PRN ORAL Itching/Pruritis 09/11/19 13:15 10/11/19 13:14 Docusate Sodium (Colace) 100 mg TWICE A DAY ORAL 09/11/19 18:00 10/11/19 17:59 09/12/19 07:54 Heparin Sodium (Porcine) (Heparin 5000 units/ml) 5,000 units EVERY 12 HOURS SUBQ 09/06/19 09:00 10/21/19 08:59 09/12/19 07:58 Hydromorphone HCl (Dilaudid) 0.5 mg Q3H PRN IVP Pain Score 1-3 09/11/19 13:15 09/18/19 13:14 Hydromorphone HCl (Dilaudid) 1 mg Q3H PRN IVP pain score 4-6 09/11/19 13:15 09/18/19 13:14 09/12/19 07:55 Iohexol (OMNIPAQUE-300 100ml) 100 ml NOW PRN INJ Radiology Procedure 09/10/19 09:15 09/12/19 09:07 Magnesium Hydroxide (Mom) 30 ml BIDPRN PRN ORAL Constipation 09/11/19 13:15 10/11/19 13:14 Ondansetron HCl (Zofran) 4 mg Q6H PRN IVP Nausea & Vomiting 09/11/19 13:15 10/11/19 13:14 Piperacillin Sod/ Tazobactam Sod 3.375 gm/Dextrose 100 ml @ 25 mls/hr EVERY 8 HOURS IVPB 09/10/19 22:00 09/15/19 21:59 09/12/19 05:44 Potassium Chloride/Sodium Chloride 1,000 ml @ 100 mls/hr Q10H IV 09/12/19 09:00 10/12/19 08:59 Sennosides (Senokot) 8.6 mg BIDPRN PRN ORAL Constipation 09/11/19 13:15 10/11/19 13:14 Zolpidem Tartrate (Ambien) 5 mg HSPRN PRN ORAL Insomnia 09/10/19 15:56 09/17/19 15:55 Mckay Goel MD 09/12/19 1505: Assessment/Plan Assessment/Plan Patient seen and examined with SONOGRAPHY TECHNICIAN, agree with above A&P as it reflects our joint deliberations. D/W Dr. Zheng. Subjective Allergies: Coded Allergies: FLUCONAZOLE (Verified Allergy, Unknown, Rash, 09/05/19) Susan Morales NP Sep 12, 2019 08:30 Mckay Goel MD Sep 12, 2019 15:05
[2019-09-12] MEDS: NS w/KCl 20mEq 1000ml 1,000 ML IV SCH ×2 (09:08→20:02)
--- NOTE | 2019-09-12 09:24 | General Surgery Progress Note ---
General Surgery-Progress Note Subjective Day of Surgery: september 10 Procedure Performed abdominal myomectomy Symptoms: pain increased Objective Last 24 Hour Vital Signs Date Time Temp Pulse Resp B/P (MAP) Pulse Ox O2 Delivery O2 Flow Rate FiO2 09/12/19 08:00 100.6 121 20 125/85 (98) 95 09/12/19 08:00 100.6 121 125/85 (98) 95 09/12/19 07:15 Room Air 09/12/19 04:00 99.4 107 138/76 (96) 95 09/12/19 00:00 97.8 106 120/70 (87) 95 09/11/19 22:00 98.3 97 09/11/19 21:00 Nasal Cannula 2.0 09/11/19 21:00 99.3 97 09/11/19 20:53 99.3 09/11/19 20:00 100.7 112 132/83 (99) 99 09/11/19 16:00 98.5 109 122/75 (91) 100 09/11/19 15:22 102 22 98 09/11/19 15:00 98.2 112 117/82 (94) 97 09/11/19 14:48 98.1 100 19 126/69 100 Nasal Cannula 3 09/11/19 14:33 120 146/79 09/11/19 14:33 121 20 143/71 100 Nasal Cannula 3 09/11/19 14:30 113 18 143/71 100 Nasal Cannula 3 09/11/19 14:29 97.8 09/11/19 14:15 99 20 148/76 100 Nasal Cannula 3 09/11/19 14:12 98.3 09/11/19 14:00 97 17 132/82 100 Nasal Cannula 3 09/11/19 13:42 103 16 140/92 100 Nasal Cannula 3 09/11/19 13:26 100 22 147/91 100 Simple Mask 6 09/11/19 13:16 101 20 141/90 100 Simple Mask 6 09/11/19 13:07 106 22 99 09/11/19 13:06 100 15 134/90 100 Simple Mask 6 09/11/19 13:01 102 15 147/99 100 Simple Mask 6 09/11/19 12:56 98.3 106 22 136/72 100 Simple Mask 6 I&O Intake and Output 09/11/19 09/12/19 19:00 07:00 Intake Total 1740 ml 1750 ml Output Total 550 ml 380 ml Balance 1190 ml 1370 ml Intake Oral 240 ml 450 ml IV Total 1500 ml 1300 ml Output Urine Total 400 ml 380 ml Estimated Blood Loss 150 ml Dressing: dry Wound: clean Drains: none Cardiovascular: RSR Respiratory: clear Abdomen: tenderness, decreased bowel sounds Laboratory Tests Test 09/12/19 05:40 White Blood Count 24.6 K/UL (4.8-10.8) *H Red Blood Count 3.21 M/UL (4.20-5.40) L Hemoglobin 9.2 G/DL (12.0-16.0) L Hematocrit 27.9 % (37.0-47.0) L Mean Corpuscular Volume 87 FL (80-99) Mean Corpuscular Hemoglobin 28.5 PG (27.0-31.0) Mean Corpuscular Hemoglobin Concent 32.8 G/DL (32.0-36.0) Red Cell Distribution Width 16.3 % (11.6-14.8) H Platelet Count 474 K/UL (150-450) H Mean Platelet Volume 4.4 FL (6.5-10.1) L Neutrophils (%) (Auto) % (45.0-75.0) Lymphocytes (%) (Auto) % (20.0-45.0) Monocytes (%) (Auto) % (1.0-10.0) Eosinophils (%) (Auto) % (0.0-3.0) Basophils (%) (Auto) % (0.0-2.0) Neutrophils % (Manual) Pending Lymphocytes % (Manual) Pending Platelet Estimate Pending Platelet Morphology Pending Sodium Level 142 MMOL/L (136-145) Potassium Level 3.4 MMOL/L (3.5-5.1) L Chloride Level 108 MMOL/L (98-107) H Carbon Dioxide Level 25 MMOL/L (21-32) Anion Gap 9 mmol/L (5-15) Blood Urea Nitrogen 5 mg/dL (7-18) L Creatinine 0.8 MG/DL (0.55-1.30) Estimat Glomerular Filtration Rate > 60 mL/min (>60) Glucose Level 90 MG/DL (74-106) Calcium Level 7.7 MG/DL (8.5-10.1) L Total Bilirubin 0.4 MG/DL (0.2-1.0) Aspartate Amino Transf (AST/SGOT) 25 U/L (15-37) Alanine Aminotransferase (ALT/SGPT) 25 U/L (12-78) Alkaline Phosphatase 59 U/L (46-116) Total Protein 6.2 G/DL (6.4-8.2) L Albumin 1.8 G/DL (3.4-5.0) L Globulin 4.4 g/dL Albumin/Globulin Ratio 0.4 (1.0-2.7) L Additional Comments leukocytosis expected ff myomectomy for necrotic myoma. will repeat blood cultures. Plan Additional Comments monitor hematocrit, patient has two units PRBC available. Kumar Zheng MD Sep 12, 2019 09:24
--- NOTE | 2019-09-12 10:00 | NUR ---
NURSE NOTES:AMBULATED WITH PHYSICAL THERAPY,WITH TOLERANCE OF 150 FT.TRANSFERRED TO 318/1 PER REQUEST.
--- NOTE | 2019-09-12 11:01 | Diagnostic Imaging Report ---
Indication: Shortness of breath Technique: One view of the chest Comparison: 09/05/2019 Findings: Small sliver of lucency is seen in the right hemidiaphragm. There is some atelectasis at the left lateral lung base. Lungs pleural spaces are otherwise clear. The heart size is normal. Impression: Small amount of free intraperitoneal air. Review of electronic medical record indicates patient had abdominal/pelvic surgery on the previous day, so this is an expected finding Left lateral basilar atelectasis
[2019-09-12 12:00] VITALS: BP 113/77
[2019-09-12] MEDS: HYDROcodone/Acetamin 5/325 tab ORAL PRN (12:08)
--- NOTE | 2019-09-12 12:14 | NUR ---
NURSE NOTES:PERIPAD CHANGE HAD SMALL AMOUNT OF VAGINAL BLEEDING.NORCO GIVEN FOR PAIN 08/22,WILL MONITOR.
--- NOTE | 2019-09-12 15:15 | NUR ---
*-* INSURANCE *-* UPDATED CLINICALS AND REVIEWS HAVE BEEN FAXED TO: PAUL FAX ALL CLINICALS TO [phone]
--- NOTE | 2019-09-12 15:16 | NUR ---
P.T Note: P.T evaluation completed and tx initiated. Please refer to P.T evaluation for current functional status.
[2019-09-12 16:00] VITALS: BP 127/80
--- NOTE | 2019-09-12 17:47 | NUR ---
NURSE NOTES:PT. REFUSED FOR VERDUZCO CATH DCD
--- NOTE | 2019-09-12 18:33 | Infectious Diseases Prog Note ---
Assessment/Plan Assessment/Plan ASSESSMENT AND PLAN: 1. e.coli bacteremia, gram neg infected uterine myoma/fibroid, e.coli uti, sepsis, leukocytosis, atx status post uterine artery embolization status post myomectomy and hysteroscopy s/p myomectomy and lysis of adhesions - 09/11/19) - zosyn - monitor labs and fevers - surveillance blood cultures - negative 2. The patient has a history of uterine fibroids. 3. Uterine artery embolization. 4. History of myomectomy. 5. History of hysteroscopy. 6. No other significant past surgical history. 7. Allergy to fluconazole. 8. Social history negative. 9. Family history noncontributory. 10. MAR was noted. 11. Case discussed with RN. 12. Case discussed with the patient. 13. Case was discussed with Dr. Goel and Dr. Zheng. Subjective Constitutional: Reports: fever HEENT: Denies: congestion Respiratory: Denies: shortness of breath Cardiovascular: Denies: chest pain Gastrointestinal/Abdominal: Denies: nausea, vomiting, diarrhea Genitourinary: Reports: other Neurologic: Denies: headache Psychiatric: Denies: depression Skin: Denies: rash Hematologic: Denies: bleeding Musculoskeletal: Reports: pain Allergies: Coded Allergies: FLUCONAZOLE (Verified Allergy, Unknown, Rash, 09/05/19) Objective Vital Signs Last 24 Hour Vital Signs Date Time Temp Pulse Resp B/P (MAP) Pulse Ox O2 Delivery O2 Flow Rate FiO2 09/12/19 16:00 98.7 99 20 127/80 (96) 98 09/12/19 12:00 99.0 109 113/77 (89) 09/12/19 09:32 99.2 09/12/19 09:32 99.4 09/12/19 08:00 100.6 121 20 125/85 (98) 95 09/12/19 08:00 100.6 121 20 125/85 (98) 95 09/12/19 07:15 Room Air 09/12/19 04:00 99.4 107 138/76 (96) 95 09/12/19 00:00 97.8 106 120/70 (87) 95 09/11/19 22:00 98.3 97 09/11/19 21:00 Nasal Cannula 2.0 09/11/19 21:00 99.3 97 09/11/19 20:00 100.7 112 132/83 (99) 99 Height (Feet): 5 Height (Inches): 3.00 Weight (Pounds): 165 General Appearance: no acute distress HEENT: normocephalic, atraumatic, anicteric, mucous membranes moist, EOMI, supple, no JVD Respiratory/Chest: normal breath sounds, no respiratory distress, no accessory muscle use Cardiovascular: normal rate, regular rhythm, no gallop/murmur, no JVD Abdomen: normal bowel sounds, soft, non tender, no organomegaly, non distended Genitourinary: other - no estrada Extremities: no cyanosis Skin: no rash Neurologic/Psychiatric: director game II-XII grossly normal, alert, oriented x 3, responsive Lymphatic: no neck adenopathy Musculoskeletal: no effusion Objective Chest x-ray - 09/12/19 - Procedure: XRAY Chest 1v Indication: Shortness of breath Technique: One view of the chest Comparison: 09/05/2019 Findings: Small sliver of lucency is seen in the right hemidiaphragm. There is some atelectasis at the left lateral lung base. Lungs pleural spaces are otherwise clear. The heart size is normal. Impression: Small amount of free intraperitoneal air. Review of electronic medical record indicates patient had abdominal/pelvic surgery on the previous day, so this is an expected finding Left lateral basilar atelectasis CT abdomen and pelvis: Impression: Decreased gas within one of the larger infarcted fibroids. This suggests resolving expected postoperative gas. No evidence of active infection elsewhere. Prominent left pelvic structure. This probably just represents a prominent left ovary in combination with a loop of colon. Prominent but not frankly enlarged retroperitoneal nodes Minimal basilar atelectasis Mild degenerative spondylosis Incidental finding of small fat-containing abdominal hernia Microbiology Date/Time Source Procedure Growth Status 09/10/19 19:00 Blood Blood Culture - Preliminary NO GROWTH AFTER 24 HOURS Resulted 09/10/19 18:50 Blood Blood Culture - Preliminary NO GROWTH AFTER 24 HOURS Resulted 09/11/19 12:00 Other(Specify in comment) Gram Stain Pending Resulted 09/11/19 12:00 Aerobic Culture - Preliminary Gram Negative Bacillus 1 Resulted 09/11/19 12:00 Other(Specify in comment) Anaerobic Culture - Preliminary Resulted 09/10/19 20:30 Urine,Clean Catch Urine Culture - Preliminary Resulted Laboratory Tests Test 09/12/19 05:40 White Blood Count 24.6 K/UL (4.8-10.8) *H Red Blood Count 3.21 M/UL (4.20-5.40) L Hemoglobin 9.2 G/DL (12.0-16.0) L Hematocrit 27.9 % (37.0-47.0) L Mean Corpuscular Volume 87 FL (80-99) Mean Corpuscular Hemoglobin 28.5 PG (27.0-31.0) Mean Corpuscular Hemoglobin Concent 32.8 G/DL (32.0-36.0) Red Cell Distribution Width 16.3 % (11.6-14.8) H Platelet Count 474 K/UL (150-450) H Mean Platelet Volume 4.4 FL (6.5-10.1) L Neutrophils (%) (Auto) % (45.0-75.0) Lymphocytes (%) (Auto) % (20.0-45.0) Monocytes (%) (Auto) % (1.0-10.0) Eosinophils (%) (Auto) % (0.0-3.0) Basophils (%) (Auto) % (0.0-2.0) Differential Total Cells Counted 100 Neutrophils % (Manual) 88 % (45-75) H Lymphocytes % (Manual) 7 % (20-45) L Monocytes % (Manual) 4 % (1-10) Eosinophils % (Manual) 0 % (0-3) Basophils % (Manual) 1 % (0-2) Band Neutrophils 0 % (0-8) Platelet Estimate Adequate Platelet Morphology Normal Hypochromasia 2+ Sodium Level 142 MMOL/L (136-145) Potassium Level 3.4 MMOL/L (3.5-5.1) L Chloride Level 108 MMOL/L (98-107) H Carbon Dioxide Level 25 MMOL/L (21-32) Anion Gap 9 mmol/L (5-15) Blood Urea Nitrogen 5 mg/dL (7-18) L Creatinine 0.8 MG/DL (0.55-1.30) Estimat Glomerular Filtration Rate > 60 mL/min (>60) Glucose Level 90 MG/DL (74-106) Calcium Level 7.7 MG/DL (8.5-10.1) L Total Bilirubin 0.4 MG/DL (0.2-1.0) Aspartate Amino Transf (AST/SGOT) 25 U/L (15-37) Alanine Aminotransferase (ALT/SGPT) 25 U/L (12-78) Alkaline Phosphatase 59 U/L (46-116) Total Protein 6.2 G/DL (6.4-8.2) L Albumin 1.8 G/DL (3.4-5.0) L Globulin 4.4 g/dL Albumin/Globulin Ratio 0.4 (1.0-2.7) L Current Medications Medications (Trade) Dose Ordered Sig/Mitchel Route PRN Reason Start Time Stop Time Status Last Admin Dose Admin Acetaminophen (Tylenol) 650 mg Q6H PRN ORAL Temp >100.5 09/05/19 23:00 10/05/19 22:59 09/12/19 09:02 Acetaminophen/ Hydrocodone Bitart ([place] 5/325) 1 tab Q6H PRN ORAL For Pain 09/05/19 23:00 09/12/19 22:59 09/12/19 12:08 Al Hydroxide/Mg Hydroxide (Mylanta) 15 ml Q6H PRN ORAL DYSPEPSIA 09/11/19 13:15 10/11/19 13:14 Diphenhydramine HCl (Benadryl) 25 mg Q8H PRN ORAL Itching/Pruritis 09/11/19 13:15 10/11/19 13:14 Docusate Sodium (Colace) 100 mg TWICE A DAY ORAL 09/11/19 18:00 10/11/19 17:59 09/12/19 07:54 Heparin Sodium (Porcine) (Heparin 5000 units/ml) 5,000 units EVERY 12 HOURS SUBQ 09/06/19 09:00 10/21/19 08:59 09/12/19 07:58 Hydromorphone HCl (Dilaudid) 0.5 mg Q3H PRN IVP Pain Score 1-3 09/11/19 13:15 09/18/19 13:14 Hydromorphone HCl (Dilaudid) 1 mg Q3H PRN IVP pain score 4-6 09/11/19 13:15 09/18/19 13:14 09/12/19 15:41 Magnesium Hydroxide (Mom) 30 ml BIDPRN PRN ORAL Constipation 09/11/19 13:15 10/11/19 13:14 Ondansetron HCl (Zofran) 4 mg Q6H PRN IVP Nausea & Vomiting 09/11/19 13:15 10/11/19 13:14 Piperacillin Sod/ Tazobactam Sod 3.375 gm/Dextrose 100 ml @ 25 mls/hr EVERY 8 HOURS IVPB 09/10/19 22:00 09/15/19 21:59 09/12/19 15:50 Potassium Chloride/Sodium Chloride 1,000 ml @ 100 mls/hr Q10H IV 09/12/19 09:00 10/12/19 08:59 09/12/19 09:08 Sennosides (Senokot) 8.6 mg BIDPRN PRN ORAL Constipation 09/11/19 13:15 10/11/19 13:14 Zolpidem Tartrate (Ambien) 5 mg HSPRN PRN ORAL Insomnia 09/10/19 15:56 09/17/19 15:55 Julisa Naranjo MD Sep 12, 2019 18:33
[2019-09-12 19:01] LABS: HEMATOCRIT 30.2 % (37.0-47.0); HEMOGLOBIN 9.5 G/DL (12.0-16.0); MEAN CORPUSCULAR VOLUME 92 FL (80-99); PLATELET COUNT 549 K/UL (150-450); RED BLOOD COUNT 3.27 M/UL (4.20-5.40); RED CELL DISTRIBUTION WIDTH 18.6 % (11.6-14.8)
[2019-09-12 19:08] LABS: WHITE BLOOD COUNT 23.2 K/UL (4.8-10.8)
--- NOTE | 2019-09-12 19:21 | NUR ---
HAND-OFF: Report given to JER JAIMES.PT.STABLE.
--- NOTE | 2019-09-12 19:30 | NUR ---
NURSE NOTES: Patient awake in bed, A&OX4, no SOB noted. With complaint of pain. Will medicate as ordered. Instructed to use call light for assistance. Bed in lowest, lock engaged and alarm on. Will continue plan of care.
[2019-09-12 22:20] VITALS: BP 153/92
--- NOTE | 2019-09-12 23:00 | NUR ---
NURSE NOTES: Called Dr. Zheng and left message regarding patient's increased temperature, critical result of WBC and refused to remove Tompkins cath per AM nurse. Waiting for call back.
[2019-09-13] VITALS: BP 138/84
--- NOTE | 2019-09-13 01:00 | NUR ---
NURSE NOTES: Spoke with the patient regarding removal of Tompkins catheter. Patient wasn't comfortable and may keep the FC till morning. Will try again later.
[2019-09-13] MEDS: HYDROmorphone 1mg/ml Carpuject IVP PRN ×3 (01:10→10:42)
[2019-09-13 05:35] VITALS: BP 150/92
[2019-09-13] MEDS: NS w/KCl 20mEq 1000ml 1,000 ML IV SCH (05:45)
--- NOTE | 2019-09-13 06:53 | NUR ---
NURSE NOTES: Removed Tompkins catheter at 6AM. Instructed patient to inform RN as soon as she feels the need to pee or pee within 6 hours. Patient verbalized understanding.
[2019-09-13 07:04] LABS: HEMATOCRIT 27.8 % (37.0-47.0); HEMOGLOBIN 9.1 G/DL (12.0-16.0); MEAN CORPUSCULAR VOLUME 87 FL (80-99); PLATELET COUNT 517 K/UL (150-450); RED BLOOD COUNT 3.18 M/UL (4.20-5.40); RED CELL DISTRIBUTION WIDTH 16.7 % (11.6-14.8); WHITE BLOOD COUNT 19.1 K/UL (4.8-10.8)
[2019-09-13 07:28] LABS: ANION GAP 10 mmol/L (5-15); BLOOD UREA NITROGEN 3 mg/dL (7-18); CALCIUM 8.1 MG/DL (8.5-10.1); CARBON DIOXIDE 26 MMOL/L (21-32); CHLORIDE 108 MMOL/L (98-107); CREATININE 0.7 MG/DL (0.55-1.30); POTASSIUM 3.6 MMOL/L (3.5-5.1); SODIUM 143 MMOL/L (136-145)
--- NOTE | 2019-09-13 07:41 | NUR ---
HAND-OFF: Report given to FIONA Lockett.
--- NOTE | 2019-09-13 07:45 | NUR ---
NURSE NOTES: Received report from Chemo JAIMES. Patient is awake and oriented, no acute distress noted, reporting no pain. Surgical site dressing clean, dry, intact, abdominal binder in place. IVF running per order. Patient updated on plan of care for the day. Side rails upx2, bed low and locked, call light within reach.
[2019-09-13 08:00] VITALS: BP 142/92
--- NOTE | 2019-09-13 08:01 | NUR ---
NURSE NOTES: Dr. Zheng notified and aware of WBC 19.1.
--- NOTE | 2019-09-13 08:42 | NUR ---
CASE MANAGEMENT: REVIEW 09/12/2019 SI:S/P MYOMECTOMY ABDOMINAL OPEN ACUTE FEBRILE ILLNESS. Acute cystitis with hematuria. 102.2 131 20 152/92 93% ON RA WBC 24.6 H/H 9.2/27.9 PLT 549 K+ 3.4 CA+7.7 ALBUMIN 1.8 IS: IV KCL @100ML/HR IV NS @100 ML/HR IV ZOSYN Q8HR HEPARIN SQ BID TYLENOL PO Q6HR/PRN IV DEMEROL Q3HR/PRN CHEST X-RAY-Small amount of free intraperitoneal air;Left lateral basilar atelectasis \: 3E MED/SURG DCP: HOME WHEN STABLE PLAN: PHYSICAL THERAPY EVAL CASE MANAGEMENT: REVIEW 09/13/2019 SI:S/P MYOMECTOMY ABDOMINAL OPEN ACUTE FEBRILE ILLNESS. Acute cystitis with hematuria. 99.6 122 20 138/84 95% ON RA WBC 19.1 H/H 9.1/27.8 PLT 517 IS: IV KCL @100ML/HR IV NS @100 ML/HR IV ZOSYN Q8HR HEPARIN SQ BID TYLENOL PO Q6HR/PRN IV DEMEROL Q3HR/PRN \: 3E MED/SURG DCP: HOME WHEN STABLE PLAN: PHYSICAL THERAPY EVAL AEROBIC & ANAEROBIC CX- + GRAM NEG BACILLUS
--- NOTE | 2019-09-13 08:43 | Pulmonology Progress Note ---
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 Sinus tachycardia -resolved Suspected CoVID19 infection -ruled out Symptomatic uterine fibroids with hx of recent myomectomy, and prior uterine artery embolization Nausea, vomiting and diarrhea , possible gastroenteritis -gardually resolving ( stool C dif NGT) Anemia Rheumatoid arthritis Mild hypokalemia PLAN OF CARE [facility] floor REYNA-COV-2 by PCR-NGT off isolation IVF, added KCL BCX + E coli UCX +Ecoli, SCX + E coli repeated BCX 09/07 and 09/09 NGTD repeated UCX 09/09 NGT now ID follows back on Zosyn fup with operative cx : preliminary CX, + GNB prior to surgery CT A/P with IV contrast done to r/o abscess -negative remained with fevers, leuk trending up s/p abd myomectomy 09/10 leuk this am with some trend down still febrile intermittently IS at the bedside and encourage to use CXR 09/11 - L base atelectasis encourage OOB as tolerated and use of IS abx - per ID F/c dc early this am 09/12, already voided pain management monitor HH with goal to keep Hgb above 7 -remains at baseline s/ p IV iron x 5 bags DVT /GI prophylaxis a/emetic prn, diet as per surgeon on CL, not passing gas yet K stable after KCL addition to IVF ST was likely due to fever and possible mild dehydration -resolved no nausea, stool formed, probably also had mild gastroenteritis , resolved stool C dif NGT case discussed and evaluated by supervising physician Subjective Constitutional: Reports: fever Gastrointestinal/Abdominal: Denies: nausea, vomiting, diarrhea Psychiatric: Denies: depression Skin: Denies: rash Musculoskeletal: Reports: pain Allergies: Coded Allergies: FLUCONAZOLE (Verified Allergy, Unknown, Rash, 09/05/19) Subjective s/p exp lap with abd myomectomy 09/10 WBC down to 19.1 this am fever last night 102.2, this am low grade fever 99.5 CXR 09/11 with L base ATX F/c was dc early this am, already voiding tolerates CL diet , not passing gas yet Objective Last 24 Hour Vital Signs Date Time Temp Pulse Resp B/P (MAP) Pulse Ox O2 Delivery O2 Flow Rate FiO2 09/13/19 05:35 99.5 106 20 150/92 (111) 92 09/13/19 00:00 99.6 122 20 138/84 (102) 95 09/12/19 23:05 99.6 09/12/19 22:20 102.2 131 20 153/92 (112) 93 09/12/19 21:00 Room Air 09/12/19 16:00 98.7 99 20 127/80 (96) 98 09/12/19 12:00 99.0 109 113/77 (89) 09/12/19 09:32 99.4 Intake and Output 09/12/19 09/13/19 19:00 07:00 Intake Total 100 ml 1525 ml Output Total 800 ml 1700 ml Balance -700 ml -175 ml Intake Oral 300 ml IV Total 100 ml 1225 ml Output Urine Total 800 ml 1700 ml Objective General Appearance: WD/WN, no apparent distress, alert Lines, tubes and drains: peripheral HEENT: normocephalic, atraumatic, anicteric, mucous membranes moist, PERRL Neck: supple, normal inspection Respiratory/Chest: chest wall non-tender, lungs clear, no respiratory distress Cardiovascular/Chest: normal rate, regular rhythm Abdomen: large dressing C/D/I, abdominal binder on; soft, mild distention , hypoactive BS Extremities: normal range of motion, no calf tenderness, normal capillary refill Skin Exam: normal pigmentation, warm/dry 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, no motor/sensory deficits, alert, oriented x 3 Musculoskeletal: normal muscle bulk HEENT: EOMI Microbiology Date/Time Source Procedure Growth Status 09/10/19 19:00 Blood Blood Culture - Preliminary NO GROWTH AFTER 48 HOURS Resulted 09/10/19 18:50 Blood Blood Culture - Preliminary NO GROWTH AFTER 48 HOURS Resulted 09/11/19 12:00 Other(Specify in comment) Gram Stain - Final Resulted 09/11/19 12:00 Aerobic Culture - Preliminary Gram Negative Bacillus 1 Resulted 09/11/19 12:00 Other(Specify in comment) Anaerobic Culture - Preliminary Resulted 09/10/19 20:30 Urine,Clean Catch Urine Culture - Final NO GROWTH AFTER 48 HOURS Complete Laboratory Tests 09/12/19 18:20: White Blood Count 23.2*H, Red Blood Count 3.27L, Hemoglobin 9.5L, Hematocrit 30.2L, Mean Corpuscular Volume 92, Mean Corpuscular Hemoglobin 29.0, Mean Corpuscular Hemoglobin Concent 31.4L, Red Cell Distribution Width 18.6H, Platelet Count 549H, Mean Platelet Volume 5.5L, Neutrophils (%) (Auto) , Lymphocytes (%) (Auto) , Monocytes (%) (Auto) , Eosinophils (%) (Auto) , Basophils (%) (Auto) , Differential Total Cells Counted 100, Neutrophils % ( Manual) 86H, Lymphocytes % (Manual) 7L, Monocytes % (Manual) 6, Eosinophils % ( Manual) 0, Basophils % (Manual) 1, Band Neutrophils 0, Platelet Estimate IncreasedH, Platelet Morphology Normal, Hypochromasia 2+, Anisocytosis 1+ 09/13/19 05:30: White Blood Count 19.1H, Red Blood Count 3.18L, Hemoglobin 9.1L, Hematocrit 27.8L, Mean Corpuscular Volume 87, Mean Corpuscular Hemoglobin 28.6, Mean Corpuscular Hemoglobin Concent 32.7, Red Cell Distribution Width 16.7H, Platelet Count 517H, Mean Platelet Volume 4.6L, Neutrophils (%) (Auto) , Lymphocytes (%) (Auto) , Monocytes (%) (Auto) , Eosinophils (%) (Auto) , Basophils (%) (Auto) , Neutrophils % (Manual) [Pending], Lymphocytes % (Manual) [Pending], Platelet Estimate [Pending], Platelet Morphology [Pending], Sodium Level 143, Potassium Level 3.6, Chloride Level 108H, Carbon Dioxide Level 26, Anion Gap 10, Blood Urea Nitrogen 3L, Creatinine 0.7, Estimat Glomerular Filtration Rate > 60, Glucose Level 90, Calcium Level 8.1L Current Medications Medications (Trade) Dose Ordered Sig/Mitchel Route PRN Reason Start Time Stop Time Status Last Admin Dose Admin Acetaminophen (Tylenol) 650 mg Q6H PRN ORAL Temp >100.5 09/05/19 23:00 10/05/19 22:59 09/12/19 22:35 Al Hydroxide/Mg Hydroxide (Mylanta) 15 ml Q6H PRN ORAL DYSPEPSIA 09/11/19 13:15 10/11/19 13:14 Diphenhydramine HCl (Benadryl) 25 mg Q8H PRN ORAL Itching/Pruritis 09/11/19 13:15 10/11/19 13:14 Docusate Sodium (Colace) 100 mg TWICE A DAY ORAL 09/11/19 18:00 10/11/19 17:59 09/12/19 07:54 Heparin Sodium (Porcine) (Heparin 5000 units/ml) 5,000 units EVERY 12 HOURS SUBQ 09/06/19 09:00 10/21/19 08:59 09/12/19 22:24 Hydromorphone HCl (Dilaudid) 0.5 mg Q3H PRN IVP Pain Score 1-3 09/11/19 13:15 09/18/19 13:14 Hydromorphone HCl (Dilaudid) 1 mg Q3H PRN IVP pain score 4-6 09/11/19 13:15 09/18/19 13:14 09/13/19 05:40 Magnesium Hydroxide (Mom) 30 ml BIDPRN PRN ORAL Constipation 09/11/19 13:15 10/11/19 13:14 Ondansetron HCl (Zofran) 4 mg Q6H PRN IVP Nausea & Vomiting 09/11/19 13:15 10/11/19 13:14 Piperacillin Sod/ Tazobactam Sod 3.375 gm/Dextrose 100 ml @ 25 mls/hr EVERY 8 HOURS IVPB 09/10/19 22:00 09/15/19 21:59 09/13/19 05:40 Potassium Chloride/Sodium Chloride 1,000 ml @ 100 mls/hr Q10H IV 09/12/19 09:00 10/12/19 08:59 09/13/19 05:45 Sennosides (Senokot) 8.6 mg BIDPRN PRN ORAL Constipation 09/11/19 13:15 10/11/19 13:14 Zolpidem Tartrate (Ambien) 5 mg HSPRN PRN ORAL Insomnia 09/10/19 15:56 09/17/19 15:55 Mckay Goel MD 09/14/19 1152: Assessment/Plan Assessment/Plan Patient seen and examined with CHILD & ADOLESCENT PSYCHIATRIST, agree with A&P as outlined above as it reflects our joint deliberations. Subjective Allergies: Coded Allergies: FLUCONAZOLE (Verified Allergy, Unknown, Rash, 09/05/19) Susan Morales NP September 13, 2019 08:43 Mckay Goel MD September 14, 2019 11:52
--- NOTE | 2019-09-13 08:55 | General Surgery Progress Note ---
General Surgery-Progress Note Subjective Day of Surgery: september 10 Procedure Performed abdominal myomectomy Symptoms: improved, voiding well, pain decreased Objective Last 24 Hour Vital Signs Date Time Temp Pulse Resp B/P (MAP) Pulse Ox O2 Delivery O2 Flow Rate FiO2 09/13/19 05:35 99.5 106 20 150/92 (111) 92 09/13/19 00:00 99.6 122 20 138/84 (102) 95 09/12/19 23:05 99.6 09/12/19 22:20 102.2 131 20 153/92 (112) 93 09/12/19 21:00 Room Air 09/12/19 16:00 98.7 99 20 127/80 (96) 98 09/12/19 12:00 99.0 109 113/77 (89) 09/12/19 09:32 99.4 I&O Intake and Output 09/12/19 09/13/19 19:00 07:00 Intake Total 100 ml 1525 ml Output Total 800 ml 1700 ml Balance -700 ml -175 ml Intake Oral 300 ml IV Total 100 ml 1225 ml Output Urine Total 800 ml 1700 ml Dressing: dry Wound: clean Drains: none Cardiovascular: RSR Respiratory: clear Abdomen: tenderness, decreased bowel sounds Extremities: no edema, no tenderness, no cyanosis Laboratory Tests Test 09/12/19 18:20 09/13/19 05:30 White Blood Count 23.2 K/UL (4.8-10.8) *H 19.1 K/UL (4.8-10.8) H Red Blood Count 3.27 M/UL (4.20-5.40) L 3.18 M/UL (4.20-5.40) L Hemoglobin 9.5 G/DL (12.0-16.0) L 9.1 G/DL (12.0-16.0) L Hematocrit 30.2 % (37.0-47.0) L 27.8 % (37.0-47.0) L Mean Corpuscular Volume 92 FL (80-99) 87 FL (80-99) Mean Corpuscular Hemoglobin 29.0 PG (27.0-31.0) 28.6 PG (27.0-31.0) Mean Corpuscular Hemoglobin Concent 31.4 G/DL (32.0-36.0) L 32.7 G/DL (32.0-36.0) Red Cell Distribution Width 18.6 % (11.6-14.8) H 16.7 % (11.6-14.8) H Platelet Count 549 K/UL (150-450) H 517 K/UL (150-450) H Mean Platelet Volume 5.5 FL (6.5-10.1) L 4.6 FL (6.5-10.1) L Neutrophils (%) (Auto) % (45.0-75.0) % (45.0-75.0) Lymphocytes (%) (Auto) % (20.0-45.0) % (20.0-45.0) Monocytes (%) (Auto) % (1.0-10.0) % (1.0-10.0) Eosinophils (%) (Auto) % (0.0-3.0) % (0.0-3.0) Basophils (%) (Auto) % (0.0-2.0) % (0.0-2.0) Differential Total Cells Counted 100 Neutrophils % (Manual) 86 % (45-75) H Pending Lymphocytes % (Manual) 7 % (20-45) L Pending Monocytes % (Manual) 6 % (1-10) Eosinophils % (Manual) 0 % (0-3) Basophils % (Manual) 1 % (0-2) Band Neutrophils 0 % (0-8) Platelet Estimate Increased H Pending Platelet Morphology Normal Pending Hypochromasia 2+ Anisocytosis 1+ Sodium Level 143 MMOL/L (136-145) Potassium Level 3.6 MMOL/L (3.5-5.1) Chloride Level 108 MMOL/L (98-107) H Carbon Dioxide Level 26 MMOL/L (21-32) Anion Gap 10 mmol/L (5-15) Blood Urea Nitrogen 3 mg/dL (7-18) L Creatinine 0.7 MG/DL (0.55-1.30) Estimat Glomerular Filtration Rate > 60 mL/min (>60) Glucose Level 90 MG/DL (74-106) Calcium Level 8.1 MG/DL (8.5-10.1) L Additional Comments white count decreasing, tachycardia resolving, urine output good. potassium normal today. Assessment Additional Comments improvement seen in patient. consider antibiotics targeted to sensitivities when endometrial culture is finalized. attempt oral pain medication today Plan Additional Comments advance diet when passing flatus, ambulate with assistance. Kumar Zheng MD September 13, 2019 08:55
[2019-09-13] MEDS: Heparin 5000 units/ml inj SUBQ SCH ×2 (09:51→21:13)
[2019-09-13] MEDS: Docusate 100mg cap ORAL SCH ×2 (09:51→18:20)
--- NOTE | 2019-09-13 10:08 | NUR ---
RD ASSESSMENT & RECOMMENDATIONS SEE CARE ACTIVITY FOR COMPLETE ASSESSMENT DAILY ESTIMATED NEEDS: Needs based on Surgery 59.3kg abw 25-30 kcals/kg 6709-6240 total kcals 1-2 g protein/kg 59-119 g total protein 25-30 mL/kg 6243-3641 total fluid mLs NUTRITION DIAGNOSIS: Increased pro needs r/t surgical wound healing as evidenced by s/p ex lap, lysis of adhesions, and abdominal myomectomy CURRENT DIET: now CLD s/p surgery PO DIET RECOMMENDATIONS: As able LOW NA diet ADDITIONAL RECOMMENDATIONS: 1) Monitor for advanced diet and tolerance 2) Add Ensure Clear TID w/ CLD
[2019-09-13 12:00] VITALS: BP 143/93
[2019-09-13] MEDS ORDERED: NS 275ml ONE ×2 (13:27→13:29)
[2019-09-13] MEDS ORDERED: Tubing IV Secondary IV ONE ×2 (13:27→13:29)
[2019-09-13] MEDS ORDERED: NS 500ML ONE (13:29)
--- NOTE | 2019-09-13 13:41 | NUR ---
NURSE NOTES: New orders received from Dr. Zheng. All orders read back and entered.
--- NOTE | 2019-09-13 14:09 | NUR ---
*-* INSURANCE *-* UPDATED CLINICALS AND REVIEWS HAVE BEEN FAXED TO: PAUL FAX ALL CLINICALS TO [phone]
[2019-09-13 16:00] VITALS: BP 140/94
[2019-09-13] MEDS: HYDROcodone/Acetamin 10/325 tab ORAL PRN (16:06)
--- NOTE | 2019-09-13 16:56 | NUR ---
NURSE NOTES: Patient reported she had small BM, but still not passing flatus. Bowel sounds are active in all four quadrants. Reported to Dr. Zheng and gave order for full liquid diet.
--- NOTE | 2019-09-13 19:49 | NUR ---
HAND-OFF: Report given to Sugey JAIMES.
--- NOTE | 2019-09-13 19:49 | NUR ---
NURSE NOTES: Report received from FIONA Lockett. Patient in stable condition .
[2019-09-13 20:00] VITALS: BP 149/93
[2019-09-14] VITALS: BP 136/73
[2019-09-14] MEDS: HYDROmorphone 1mg/ml Carpuject IVP PRN ×2 (00:05→04:38)
[2019-09-14 04:00] VITALS: BP 151/97
[2019-09-14 05:48] LABS: BASOPHILS % (AUTO) 1.1 % (0.0-2.0); EOSINOPHILS % (AUTO) 1.3 % (0.0-3.0); HEMATOCRIT 26.9 % (37.0-47.0); HEMOGLOBIN 8.8 G/DL (12.0-16.0); LYMPHOCYTES % (AUTO) 13.3 % (20.0-45.0); MEAN CORPUSCULAR VOLUME 87 FL (80-99); NEUTROPHILS % (AUTO) 78.3 % (45.0-75.0); PLATELET COUNT 573 K/UL (150-450); RED CELL DISTRIBUTION WIDTH 16.5 % (11.6-14.8); WHITE BLOOD COUNT 16.2 K/UL (4.8-10.8)
--- NOTE | 2019-09-14 07:52 | NUR ---
NURSE NOTES: report given to FIONA Lockett. Patient in stable condition
[2019-09-14 08:00] VITALS: BP 143/99
--- NOTE | 2019-09-14 08:00 | NUR ---
NURSE NOTES: Received report from Sugey JAIMES. Patient is asleep during rounds, no acute distress noted, RR even and unlabored. IV intact, patent. Side rails upx2, bed low and locked, call light within reach.
--- NOTE | 2019-09-14 08:44 | General Surgery Progress Note ---
General Surgery-Progress Note Subjective Procedure Performed abdominal myomectomy Chief Complaint: fever Symptoms: improved, tolerating diet, voiding well, passing flatus, BM, pain decreased Objective Last 24 Hour Vital Signs Date Time Temp Pulse Resp B/P (MAP) Pulse Ox O2 Delivery O2 Flow Rate FiO2 09/14/19 05:08 98.7 09/14/19 04:00 97.5 102 18 151/97 (115) 94 09/14/19 00:00 99.2 112 18 136/73 (94) 95 09/13/19 21:00 Room Air 09/13/19 20:00 98.7 105 18 149/93 (111) 95 09/13/19 16:00 99.0 103 18 140/94 (109) 97 09/13/19 12:00 99.1 107 18 143/93 (110) 97 09/13/19 09:00 Room Air I&O Intake and Output 09/13/19 09/14/19 19:00 07:00 Intake Total 1400 ml 500 ml Balance 1400 ml 500 ml Intake Oral 600 ml 500 ml IV Total 800 ml # Voids 3 4 # Bowel Movements 1 Dressing: dry Wound: clean, dry, intact Drains: none Cardiovascular: RSR Respiratory: clear Abdomen: soft, flat, tenderness, present bowel sounds, non-distended Extremities: no edema, no tenderness, no cyanosis Laboratory Tests Test 09/14/19 04:40 White Blood Count 16.2 K/UL (4.8-10.8) H Red Blood Count 3.10 M/UL (4.20-5.40) L Hemoglobin 8.8 G/DL (12.0-16.0) L Hematocrit 26.9 % (37.0-47.0) L Mean Corpuscular Volume 87 FL (80-99) Mean Corpuscular Hemoglobin 28.4 PG (27.0-31.0) Mean Corpuscular Hemoglobin Concent 32.7 G/DL (32.0-36.0) Red Cell Distribution Width 16.5 % (11.6-14.8) H Platelet Count 573 K/UL (150-450) H Mean Platelet Volume 4.4 FL (6.5-10.1) L Neutrophils (%) (Auto) 78.3 % (45.0-75.0) H Lymphocytes (%) (Auto) 13.3 % (20.0-45.0) L Monocytes (%) (Auto) 6.0 % (1.0-10.0) Eosinophils (%) (Auto) 1.3 % (0.0-3.0) Basophils (%) (Auto) 1.1 % (0.0-2.0) Additional Comments wbc continuing downward trend. afebrile x 24 hours.hgb stable Plan Additional Comments consider oral antibiotics soon. ambulate Kumar Zheng MD September 14, 2019 08:44
--- NOTE | 2019-09-14 09:23 | Pulmonology Progress Note ---
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 Sinus tachycardia Suspected CoVID19 infection -ruled out Symptomatic uterine fibroids with hx of recent myomectomy, and prior uterine artery embolization Nausea, vomiting and diarrhea , possible gastroenteritis -gardually resolving ( stool C dif NGT) Anemia Rheumatoid arthritis Mild hypokalemia -resolved PLAN OF CARE [facility] floor REYNA-COV-2 by PCR-NGT off isolation IVF, added KCL, s/p IVF , K stable BCX + E coli UCX +Ecoli, SCX + E coli repeated BCX 09/07 and 09/09 NGTD repeated UCX 09/09 NGT now ID follows back on Zosyn fup with operative cx + Ecoli repeated BCX 09/11 NGTD prior to surgery CT A/P with IV contrast done to r/o abscess -negative remained with fevers, leuk trending up s/p abd myomectomy 09/10 leuk this am with trend down no fevers overnight intermittently IS at the bedside and encourage to use CXR 09/11 - L base atelectasis encourage OOB as tolerated and use of IS abx - per ID F/c dc 09/12, voiding w/out difficulties pain management as needed monitor HH with goal to keep Hgb above 7 -remains at baseline s/ p IV iron x 5 bags DVT /GI prophylaxis a/emetic prn, diet as per surgeon on FL, had BM earlier, ST was likely due to fever and possible mild dehydration no nausea, stool formed, probably also had mild gastroenteritis , resolved stool C dif NGT case discussed and evaluated by supervising physician Subjective Constitutional: Reports: fever Gastrointestinal/Abdominal: Denies: nausea, vomiting, diarrhea Psychiatric: Denies: depression Skin: Denies: rash Musculoskeletal: Reports: pain Allergies: Coded Allergies: FLUCONAZOLE (Verified Allergy, Unknown, Rash, 09/05/19) Subjective s/p exp lap with abd myomectomy 09/10 WBC trending down , no fevers overnight and this am tolerated CL diet and started on FL had BM earlier this am Objective Last 24 Hour Vital Signs Date Time Temp Pulse Resp B/P (MAP) Pulse Ox O2 Delivery O2 Flow Rate FiO2 09/14/19 05:08 98.7 09/14/19 04:00 97.5 102 18 151/97 (115) 94 09/14/19 00:00 99.2 112 18 136/73 (94) 95 09/13/19 21:00 Room Air 09/13/19 20:00 98.7 105 18 149/93 (111) 95 09/13/19 16:00 99.0 103 18 140/94 (109) 97 09/13/19 12:00 99.1 107 18 143/93 (110) 97 Intake and Output 09/13/19 09/14/19 19:00 07:00 Intake Total 1400 ml 500 ml Balance 1400 ml 500 ml Intake Oral 600 ml 500 ml IV Total 800 ml # Voids 3 4 # Bowel Movements 1 Objective General Appearance: WD/WN, no apparent distress, alert Lines, tubes and drains: peripheral HEENT: normocephalic, atraumatic, anicteric, mucous membranes moist, PERRL Neck: supple, normal inspection Respiratory/Chest: chest wall non-tender, lungs clear, no respiratory distress Cardiovascular/Chest: low tachy Abdomen: lower abdominal dressing C/D/I, abdominal binder on; soft, mild distention , normoactive BS Extremities: normal range of motion, no calf tenderness, normal capillary refill Skin Exam: normal pigmentation, warm/dry 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, no motor/sensory deficits, alert, oriented x 3 Musculoskeletal: normal muscle bulk HEENT: EOMI Microbiology Date/Time Source Procedure Growth Status 09/12/19 13:00 Blood Blood Culture - Preliminary NO GROWTH AFTER 24 HOURS Resulted 09/11/19 12:00 Other(Specify in comment) Gram Stain - Final Resulted 09/11/19 12:00 Aerobic Culture - Final Escherichia Coli Resulted 09/11/19 12:00 Other(Specify in comment) Anaerobic Culture - Preliminary NO ANAEROBES ISOLATED Resulted Laboratory Tests 09/14/19 04:40: White Blood Count 16.2H, Red Blood Count 3.10L, Hemoglobin 8.8L, Hematocrit 26.9L, Mean Corpuscular Volume 87, Mean Corpuscular Hemoglobin 28.4, Mean Corpuscular Hemoglobin Concent 32.7, Red Cell Distribution Width 16.5H, Platelet Count 573H, Mean Platelet Volume 4.4L, Neutrophils (%) (Auto) 78.3H, Lymphocytes (%) (Auto) 13.3L, Monocytes (%) (Auto) 6.0, Eosinophils (%) (Auto) 1.3, Basophils (%) (Auto) 1.1 Current Medications Medications (Trade) Dose Ordered Sig/Mitchel Route PRN Reason Start Time Stop Time Status Last Admin Dose Admin Acetaminophen (Tylenol) 650 mg Q6H PRN ORAL Temp >100.5 09/05/19 23:00 10/05/19 22:59 09/12/19 22:35 Acetaminophen/ Hydrocodone Bitart ([place] 10325) 1 tab Q3H PRN ORAL Severe Pain (Pain Scale 7-10) 09/13/19 13:45 09/20/19 13:44 09/13/19 16:06 Al Hydroxide/Mg Hydroxide (Mylanta) 15 ml Q6H PRN ORAL DYSPEPSIA 09/11/19 13:15 10/11/19 13:14 Diphenhydramine HCl (Benadryl) 25 mg Q8H PRN ORAL Itching/Pruritis 09/11/19 13:15 10/11/19 13:14 Docusate Sodium (Colace) 100 mg TWICE A DAY ORAL 09/11/19 18:00 10/11/19 17:59 09/13/19 18:20 Heparin Sodium (Porcine) (Heparin 5000 units/ml) 5,000 units EVERY 12 HOURS SUBQ 09/06/19 09:00 10/21/19 08:59 09/13/19 21:13 Hydromorphone HCl (Dilaudid) 1 mg Q3H PRN IVP Breakthrough Pain 09/13/19 13:44 09/20/19 13:43 09/14/19 04:38 Magnesium Hydroxide (Mom) 30 ml BIDPRN PRN ORAL Constipation 09/11/19 13:15 10/11/19 13:14 Ondansetron HCl (Zofran) 4 mg Q6H PRN IVP Nausea & Vomiting 09/11/19 13:15 10/11/19 13:14 Piperacillin Sod/ Tazobactam Sod 3.375 gm/Dextrose 100 ml @ 25 mls/hr EVERY 8 HOURS IVPB 09/10/19 22:00 09/15/19 21:59 09/14/19 06:20 Sennosides (Senokot) 8.6 mg BIDPRN PRN ORAL Constipation 09/11/19 13:15 10/11/19 13:14 Zolpidem Tartrate (Ambien) 5 mg HSPRN PRN ORAL Insomnia 09/10/19 15:56 09/17/19 15:55 Mckay Goel MD 09/14/19 1153: Assessment/Plan Assessment/Plan Patient seen and examined with ENVIRONMENTAL GEOLOGIST, agree with above A&P as it reflects our joint deliberations. AFVSS x for mild elevated BP in the setting of pain, though pain better controlled, OOB, jean carlos PO. Diet per PATIENT FINANCIAL SERVICES SPECIALIST Pain control/supportive care OOB IS Abx per ID, favor one more day of IV DVT px Dispo planning Subjective Allergies: Coded Allergies: FLUCONAZOLE (Verified Allergy, Unknown, Rash, 09/05/19) Susan Morales NP September 14, 2019 09:23 Mckay Goel MD September 14, 2019 11:53
[2019-09-14] MEDS: Docusate 100mg cap ORAL SCH ×2 (09:32→17:32)
[2019-09-14] MEDS: Heparin 5000 units/ml inj SUBQ SCH ×2 (09:32→21:52)
[2019-09-14] MEDS: HYDROcodone/Acetamin 10/325 tab ORAL PRN ×3 (11:31→22:32)
[2019-09-14 12:00] VITALS: BP 150/93
[2019-09-14] MEDS ORDERED: Relistor 12mg/0.6ml Vial SUBQ SCH (13:30)
[2019-09-14] MEDS ORDERED: NS 275ml ONE (15:20)
[2019-09-14 16:00] VITALS: BP 132/88
--- NOTE | 2019-09-14 18:51 | Infectious Diseases Prog Note ---
Assessment/Plan Assessment/Plan ASSESSMENT AND PLAN: 1. e.coli bacteremia, e.coli infected uterine myoma/fibroid, e.coli uti, sepsis , leukocytosis, atx status post uterine artery embolization status post myomectomy and hysteroscopy s/p myomectomy and lysis of adhesions - 09/11/19) e.coli pansensitive - zosyn - day # 3 post-op - can transition tor oral augmentin for at least 7 days upon discharge - monitor labs and fevers - surveillance blood cultures - negative - communicated with Dr. Goel about abx 2. The patient has a history of uterine fibroids. 3. Uterine artery embolization. 4. History of myomectomy. 5. History of hysteroscopy. 6. No other significant past surgical history. 7. Allergy to fluconazole. 8. Social history negative. 9. Family history noncontributory. 10. MAR was noted. 11. Case discussed with RN. 12. Case discussed with the patient. 13. Case was discussed with Dr. Goel and Dr. Zheng. Subjective Constitutional: Reports: fatigue; Denies: fever HEENT: Denies: congestion Respiratory: Denies: shortness of breath Cardiovascular: Denies: chest pain Gastrointestinal/Abdominal: Denies: nausea, vomiting, diarrhea Genitourinary: Reports: other - no estrada Neurologic: Denies: headache Psychiatric: Denies: depression Skin: Denies: rash Hematologic: Denies: bleeding Musculoskeletal: Denies: pain Allergies: Coded Allergies: FLUCONAZOLE (Verified Allergy, Unknown, Rash, 09/05/19) Objective Vital Signs Last 24 Hour Vital Signs Date Time Temp Pulse Resp B/P (MAP) Pulse Ox O2 Delivery O2 Flow Rate FiO2 09/14/19 16:00 98.2 110 16 132/88 (103) 98 09/14/19 12:00 97.9 99 18 150/93 (112) 97 09/14/19 09:00 Room Air 09/14/19 08:00 98.4 100 18 143/99 (114) 94 09/14/19 05:08 98.7 09/14/19 04:00 97.5 102 18 151/97 (115) 94 09/14/19 00:00 99.2 112 18 136/73 (94) 95 09/13/19 21:00 Room Air 09/13/19 20:00 98.7 105 18 149/93 (111) 95 Height (Feet): 5 Height (Inches): 3.00 Weight (Pounds): 165 General Appearance: no acute distress HEENT: normocephalic, atraumatic, anicteric, mucous membranes moist Respiratory/Chest: chest wall non-tender, lungs clear, normal breath sounds, no respiratory distress Cardiovascular: normal rate, regular rhythm, regularly irregular, no gallop/ murmur, no JVD Abdomen: normal bowel sounds, soft, non tender, no organomegaly, non distended Genitourinary: other - no estrada Extremities: no cyanosis Skin: no rash Neurologic/Psychiatric: thread cutter tender II-XII grossly normal, alert, oriented x 3, responsive Lymphatic: no neck adenopathy Musculoskeletal: no effusion Objective Chest x-ray - 09/12/19 - Procedure: XRAY Chest 1v Indication: Shortness of breath Technique: One view of the chest Comparison: 09/05/2019 Findings: Small sliver of lucency is seen in the right hemidiaphragm. There is some atelectasis at the left lateral lung base. Lungs pleural spaces are otherwise clear. The heart size is normal. Impression: Small amount of free intraperitoneal air. Review of electronic medical record indicates patient had abdominal/pelvic surgery on the previous day, so this is an expected finding Left lateral basilar atelectasis CT abdomen and pelvis: Impression: Decreased gas within one of the larger infarcted fibroids. This suggests resolving expected postoperative gas. No evidence of active infection elsewhere. Prominent left pelvic structure. This probably just represents a prominent left ovary in combination with a loop of colon. Prominent but not frankly enlarged retroperitoneal nodes Minimal basilar atelectasis Mild degenerative spondylosis Incidental finding of small fat-containing abdominal hernia Microbiology Date/Time Source Procedure Growth Status 09/12/19 13:00 Blood Blood Culture - Preliminary NO GROWTH AFTER 24 HOURS Resulted 09/11/19 12:00 Other(Specify in comment) Gram Stain - Final Resulted 09/11/19 12:00 Aerobic Culture - Final Escherichia Coli Resulted 09/11/19 12:00 Other(Specify in comment) Anaerobic Culture - Preliminary NO ANAEROBES ISOLATED Resulted 09/06/19 19:30 Sputum Gram Stain - Final Complete 09/06/19 19:30 Sputum Culture - Final Escherichia Coli Usual Respiratory Mitzi Complete 09/07/19 18:00 Stool Clostridium difficile Toxin Assay - Final Complete 09/10/19 20:30 Urine,Clean Catch Urine Culture - Final NO GROWTH AFTER 48 HOURS Complete Microbiology Date/Time Source Procedure Growth Status 09/12/19 13:00 Blood Blood Culture - Preliminary NO GROWTH AFTER 24 HOURS Resulted Labs Test 09/12/19 05:40 09/12/19 18:20 09/13/19 05:30 09/14/19 04:40 White Blood Count 24.6 K/UL (4.8-10.8) 23.2 K/UL (4.8-10.8) 19.1 K/UL (4.8-10.8) 16.2 K/UL (4.8-10.8) Red Blood Count 3.21 M/UL (4.20-5.40) 3.27 M/UL (4.20-5.40) 3.18 M/UL (4.20-5.40) 3.10 M/UL (4.20-5.40) Hemoglobin 9.2 G/DL (12.0-16.0) 9.5 G/DL (12.0-16.0) 9.1 G/DL (12.0-16.0) 8.8 G/DL (12.0-16.0) Hematocrit 27.9 % (37.0-47.0) 30.2 % (37.0-47.0) 27.8 % (37.0-47.0) 26.9 % (37.0-47.0) Mean Corpuscular Volume 87 FL (80-99) 92 FL (80-99) 87 FL (80-99) 87 FL (80- 99) Mean Corpuscular Hemoglobin 28.5 PG (27.0-31.0) 29.0 PG (27.0-31.0) 28.6 PG (27.0-31.0) 28.4 PG (27.0-31.0) Mean Corpuscular Hemoglobin Concent 32.8 G/DL (32.0-36.0) 31.4 G/DL (32.0-36.0) 32.7 G/DL (32.0-36.0) 32.7 G/DL (32.0-36.0) Red Cell Distribution Width 16.3 % (11.6-14.8) 18.6 % (11.6-14.8) 16.7 % (11.6-14.8) 16.5 % (11.6-14.8) Platelet Count 474 K/UL (150-450) 549 K/UL (150-450) 517 K/UL (150-450) 573 K/UL (150-450) Mean Platelet Volume 4.4 FL (6.5-10.1) 5.5 FL (6.5-10.1) 4.6 FL (6.5-10.1) 4.4 FL (6.5-10.1) Neutrophils (%) (Auto) % (45.0-75.0) % (45.0-75.0) % (45.0-75.0) 78.3 % (45.0-75.0) Lymphocytes (%) (Auto) % (20.0-45.0) % (20.0-45.0) % (20.0-45.0) 13.3 % (20.0-45.0) Monocytes (%) (Auto) % (1.0-10.0) % (1.0-10.0) % (1.0-10.0) 6.0 % (1.0-10.0) Eosinophils (%) (Auto) % (0.0-3.0) % (0.0-3.0) % (0.0-3.0) 1.3 % (0.0-3.0) Basophils (%) (Auto) % (0.0-2.0) % (0.0-2.0) % (0.0-2.0) 1.1 % (0.0-2.0) Differential Total Cells Counted 100 100 100 Neutrophils % (Manual) 88 % (45-75) 86 % (45-75) 88 % (45-75) Lymphocytes % (Manual) 7 % (20-45) 7 % (20-45) 5 % (20-45) Monocytes % (Manual) 4 % (1-10) 6 % (1-10) 5 % (1-10) Eosinophils % (Manual) 0 % (0-3) 0 % (0-3) 1 % (0-3) Basophils % (Manual) 1 % (0-2) 1 % (0-2) 1 % (0-2) Band Neutrophils 0 % (0-8) 0 % (0-8) 0 % (0-8) Platelet Estimate Adequate Increased Adequate Platelet Morphology Normal Normal Normal Hypochromasia 2+ 2+ Sodium Level 142 MMOL/L (136-145) 143 MMOL/L (136-145) Potassium Level 3.4 MMOL/L (3.5-5.1) 3.6 MMOL/L (3.5-5.1) Chloride Level 108 MMOL/L (98-107) 108 MMOL/L (98-107) Carbon Dioxide Level 25 MMOL/L (21-32) 26 MMOL/L (21-32) Anion Gap 9 mmol/L (5-15) 10 mmol/L (5-15) Blood Urea Nitrogen 5 mg/dL (7-18) 3 mg/dL (7-18) Creatinine 0.8 MG/DL (0.55-1.30) 0.7 MG/DL (0.55-1.30) Estimat Glomerular Filtration Rate > 60 mL/min (>60) > 60 mL/min (>60) Glucose Level 90 MG/DL (74-106) 90 MG/DL (74-106) Calcium Level 7.7 MG/DL (8.5-10.1) 8.1 MG/DL (8.5-10.1) Total Bilirubin 0.4 MG/DL (0.2-1.0) Aspartate Amino Transf (AST/SGOT) 25 U/L (15-37) Alanine Aminotransferase (ALT/SGPT) 25 U/L (12-78) Alkaline Phosphatase 59 U/L (46-116) Total Protein 6.2 G/DL (6.4-8.2) Albumin 1.8 G/DL (3.4-5.0) Globulin 4.4 g/dL Albumin/Globulin Ratio 0.4 (1.0-2.7) Anisocytosis 1+ 1+ Laboratory Tests Test 09/14/19 04:40 White Blood Count 16.2 K/UL (4.8-10.8) H Red Blood Count 3.10 M/UL (4.20-5.40) L Hemoglobin 8.8 G/DL (12.0-16.0) L Hematocrit 26.9 % (37.0-47.0) L Mean Corpuscular Volume 87 FL (80-99) Mean Corpuscular Hemoglobin 28.4 PG (27.0-31.0) Mean Corpuscular Hemoglobin Concent 32.7 G/DL (32.0-36.0) Red Cell Distribution Width 16.5 % (11.6-14.8) H Platelet Count 573 K/UL (150-450) H Mean Platelet Volume 4.4 FL (6.5-10.1) L Neutrophils (%) (Auto) 78.3 % (45.0-75.0) H Lymphocytes (%) (Auto) 13.3 % (20.0-45.0) L Monocytes (%) (Auto) 6.0 % (1.0-10.0) Eosinophils (%) (Auto) 1.3 % (0.0-3.0) Basophils (%) (Auto) 1.1 % (0.0-2.0) Current Medications Medications (Trade) Dose Ordered Sig/Mitchel Route PRN Reason Start Time Stop Time Status Last Admin Dose Admin Acetaminophen (Tylenol) 650 mg Q6H PRN ORAL Temp >100.5 09/05/19 23:00 10/05/19 22:59 09/12/19 22:35 Acetaminophen/ Hydrocodone Bitart ([place] 10/325) 1 tab Q3H PRN ORAL Severe Pain (Pain Scale 7-10) 09/13/19 13:45 09/20/19 13:44 09/14/19 17:33 Al Hydroxide/Mg Hydroxide (Mylanta) 15 ml Q6H PRN ORAL DYSPEPSIA 09/11/19 13:15 10/11/19 13:14 Diphenhydramine HCl (Benadryl) 25 mg Q8H PRN ORAL Itching/Pruritis 09/11/19 13:15 10/11/19 13:14 Docusate Sodium (Colace) 100 mg TWICE A DAY ORAL 09/11/19 18:00 10/11/19 17:59 09/14/19 17:32 Heparin Sodium (Porcine) (Heparin 5000 units/ml) 5,000 units EVERY 12 HOURS SUBQ 09/06/19 09:00 10/21/19 08:59 09/14/19 09:32 Hydromorphone HCl (Dilaudid) 1 mg Q3H PRN IVP Breakthrough Pain 09/13/19 13:44 09/20/19 13:43 09/14/19 04:38 Magnesium Hydroxide (Mom) 30 ml BIDPRN PRN ORAL Constipation 09/11/19 13:15 10/11/19 13:14 Ondansetron HCl (Zofran) 4 mg Q6H PRN IVP Nausea & Vomiting 09/11/19 13:15 10/11/19 13:14 Piperacillin Sod/ Tazobactam Sod 3.375 gm/Dextrose 100 ml @ 25 mls/hr EVERY 8 HOURS IVPB 09/10/19 22:00 09/15/19 21:59 09/14/19 15:13 Sennosides (Senokot) 8.6 mg BIDPRN PRN ORAL Constipation 09/11/19 13:15 10/11/19 13:14 Zolpidem Tartrate (Ambien) 5 mg HSPRN PRN ORAL Insomnia 09/10/19 15:56 09/17/19 15:55 Julisa Naranjo MD September 14, 2019 18:51
--- NOTE | 2019-09-14 19:37 | NUR ---
HAND-OFF: Report given to Sugey JAIMES.
[2019-09-14 20:00] VITALS: BP 146/89
[2019-09-14] MEDS: Piperacillin/Tazobactam 3.375 GM in D5W 110 ML IVPB SCH (21:48)
[2019-09-15] VITALS: BP 151/98
[2019-09-15] MEDS: HYDROcodone/Acetamin 10/325 tab ORAL PRN ×2 (03:44→13:46)
[2019-09-15 04:00] VITALS: BP 144/99
[2019-09-15] MEDS: Piperacillin/Tazobactam 3.375 GM in D5W 110 ML IVPB SCH ×2 (05:26→14:00)
--- NOTE | 2019-09-15 07:30 | NUR ---
NURSE NOTES: Patient is in bed awake and able to verbalize needs. Stable. Denies severe pain or SOB. Patient instructed to use call light for assistance, verbalized understanding. Patient is in bed in locked and lowest position with call light within reach. All needs met at this time. Will continue to monitor.
--- NOTE | 2019-09-15 07:50 | NUR ---
HAND-OFF: Report given to FIONA Veronica. Patient in stable condition.
[2019-09-15 08:00] VITALS: BP 139/98
[2019-09-15] MEDS: Docusate 100mg cap ORAL SCH (08:05)
[2019-09-15] MEDS: Heparin 5000 units/ml inj SUBQ SCH (08:07)
--- NOTE | 2019-09-15 08:43 | General Surgery Progress Note ---
General Surgery-Progress Note Subjective Procedure Performed abdominal myomectomy Symptoms: improved, tolerating diet, voiding well, passing flatus, BM, pain decreased Objective Last 24 Hour Vital Signs Date Time Temp Pulse Resp B/P (MAP) Pulse Ox O2 Delivery O2 Flow Rate FiO2 09/15/19 08:36 Room Air 09/15/19 08:00 96.6 91 18 139/98 (112) 95 09/15/19 04:14 98.2 09/15/19 04:00 97.5 90 18 144/99 (114) 95 09/15/19 00:00 98.2 105 18 151/98 (115) 96 09/14/19 21:00 Room Air 09/14/19 20:00 98.4 109 17 146/89 (108) 95 09/14/19 16:00 98.2 110 16 132/88 (103) 98 09/14/19 12:00 97.9 99 18 150/93 (112) 97 09/14/19 09:00 Room Air I&O Intake and Output 09/14/19 09/15/19 19:00 07:00 Intake Total 840 ml 500 ml Balance 840 ml 500 ml Intake Oral 740 ml 400 ml IV Total 100 ml 100 ml # Voids 3 4 Dressing: dry Wound: clean Drains: none Cardiovascular: RSR Respiratory: clear Abdomen: soft, flat, scaphoid, tenderness, present bowel sounds, non-distended Plan Additional Comments afebrile x 48 hours, pain controlled with oral medication. ok to discharge on augmentin. office visit for staple removal. if ok with ID and IM. thanks. Kumar Zheng MD September 15, 2019 08:43
--- NOTE | 2019-09-15 09:42 | Pulmonology Progress Note ---
Assessment/Plan Assessment/Plan ASSESSMENT Acute febrile illness Sepsis (POA) with E coli bacteremia E coli UTI Necroting myoma s/p abdominal myomectomy 09/10 Sinus tachycardia Suspected CoVID19 infection -ruled out Symptomatic uterine fibroids with hx of recent myomectomy, and prior uterine artery embolization Nausea, vomiting and diarrhea , possible gastroenteritis -gardually resolving ( stool C dif NGT) Anemia Rheumatoid arthritis Mild hypokalemia -resolved PLAN OF CARE [facility] floor REYNA-COV-2 by PCR-NGT off isolation IVF, added KCL, s/p IVF , K stable BCX + E coli UCX +Ecoli, SCX + E coli repeated BCX 09/07 and 09/09 NGTD repeated UCX 09/09 NGT now ID follows back on Zosyn fup with operative cx + Ecoli repeated BCX 09/11 NGTD prior to surgery CT A/P with IV contrast done to r/o abscess -negative remained with fevers, leuk trending up s/p abd myomectomy 09/10 leuk this am with trend down no fevers overnight intermittently IS at the bedside and encourage to use CXR 09/11 - L base atelectasis encourage OOB as tolerated and use of IS abx - per ID F/c dc 09/12, voiding w/out difficulties pain management as needed monitor HH with goal to keep Hgb above 7 -remains at baseline s/ p IV iron x 5 bags DVT /GI prophylaxis a/emetic prn, diet as per surgeon on solid diet, tolerates ST was likely due to fever and possible mild dehydration no nausea, stool formed, probably also had mild gastroenteritis , resolved stool C dif NGT awaiting for CBC, probably will be dc today on oral abx to complete the course addendum at 11: am no leukocytosis, script provided for Augmentin [id number] bid x 7 days #14 ( scriptr also transmitted to pharmacy) case discussed and evaluated by supervising physician Subjective Constitutional: Reports: fatigue; Denies: fever Gastrointestinal/Abdominal: Denies: nausea, vomiting, diarrhea Psychiatric: Denies: depression Skin: Denies: rash Musculoskeletal: Denies: pain Allergies: Coded Allergies: FLUCONAZOLE (Verified Allergy, Unknown, Rash, 09/05/19) Subjective s/p exp lap with abd myomectomy 09/10 no fevers for 48 hrs CBc pending tolerates solid foods Objective Last 24 Hour Vital Signs Date Time Temp Pulse Resp B/P (MAP) Pulse Ox O2 Delivery O2 Flow Rate FiO2 09/15/19 08:36 Room Air 09/15/19 08:00 96.6 91 18 139/98 (112) 95 09/15/19 04:14 98.2 09/15/19 04:00 97.5 90 18 144/99 (114) 95 09/15/19 00:00 98.2 105 18 151/98 (115) 96 09/14/19 21:00 Room Air 09/14/19 20:00 98.4 109 17 146/89 (108) 95 09/14/19 16:00 98.2 110 16 132/88 (103) 98 09/14/19 12:00 97.9 99 18 150/93 (112) 97 Intake and Output 09/14/19 09/15/19 19:00 07:00 Intake Total 840 ml 500 ml Balance 840 ml 500 ml Intake Oral 740 ml 400 ml IV Total 100 ml 100 ml # Voids 3 4 Objective General Appearance: WD/WN, no apparent distress, alert Lines, tubes and drains: peripheral HEENT: normocephalic, atraumatic, anicteric, mucous membranes moist, PERRL Neck: supple, normal inspection Respiratory/Chest: chest wall non-tender, lungs clear, no respiratory distress Cardiovascular/Chest: low tachy Abdomen: lower abdomen steri strips, abdominal binder on; soft, non distended , normoactive BS Extremities: normal range of motion, no calf tenderness, normal capillary refill Skin Exam: normal pigmentation, warm/dry Neurologic: fabric sourcer II-XII grossly normal, no motor/sensory deficits, alert, oriented x 3 Musculoskeletal: normal muscle bulk Microbiology Date/Time Source Procedure Growth Status 09/12/19 13:00 Blood Blood Culture - Preliminary NO GROWTH AFTER 48 HOURS Resulted Laboratory Tests 09/15/19 06:15: White Blood Count [Pending], Red Blood Count [Pending], Hemoglobin [Pending], Hematocrit [Pending], Mean Corpuscular Volume [Pending], Mean Corpuscular Hemoglobin [Pending], Mean Corpuscular Hemoglobin Concent [Pending], Red Cell Distribution Width [Pending], Platelet Count [Pending], Mean Platelet Volume [ Pending], Neutrophils (%) (Auto) [Pending], Lymphocytes (%) (Auto) [Pending], Monocytes (%) (Auto) [Pending], Eosinophils (%) (Auto) [Pending], Basophils (%) (Auto) [Pending], Sodium Level [Pending], Potassium Level [Pending], Chloride Level [Pending], Carbon Dioxide Level [Pending], Blood Urea Nitrogen [Pending], Creatinine [Pending], Estimat Glomerular Filtration Rate [Pending], Glucose Level [Pending], Calcium Level [Pending], Total Bilirubin [Pending], Aspartate Amino Transf (AST/SGOT) [Pending], Alanine Aminotransferase (ALT/SGPT) [Pending] , Alkaline Phosphatase [Pending], Total Protein [Pending], Albumin [Pending], Globulin [Pending] Current Medications Medications (Trade) Dose Ordered Sig/Mitchel Route PRN Reason Start Time Stop Time Status Last Admin Dose Admin Acetaminophen (Tylenol) 650 mg Q6H PRN ORAL Temp >100.5 09/05/19 23:00 10/05/19 22:59 09/12/19 22:35 Acetaminophen/ Hydrocodone Bitart ([place] 10/325) 1 tab Q3H PRN ORAL Severe Pain (Pain Scale 7-10) 09/13/19 13:45 09/20/19 13:44 09/15/19 03:44 Al Hydroxide/Mg Hydroxide (Mylanta) 15 ml Q6H PRN ORAL DYSPEPSIA 09/11/19 13:15 10/11/19 13:14 Diphenhydramine HCl (Benadryl) 25 mg Q8H PRN ORAL Itching/Pruritis 09/11/19 13:15 10/11/19 13:14 Docusate Sodium (Colace) 100 mg TWICE A DAY ORAL 09/11/19 18:00 10/11/19 17:59 09/15/19 08:05 Heparin Sodium (Porcine) (Heparin 5000 units/ml) 5,000 units EVERY 12 HOURS SUBQ 09/06/19 09:00 10/21/19 08:59 09/15/19 08:07 Hydromorphone HCl (Dilaudid) 1 mg Q3H PRN IVP Breakthrough Pain 09/13/19 13:44 09/20/19 13:43 09/14/19 04:38 Magnesium Hydroxide (Mom) 30 ml BIDPRN PRN ORAL Constipation 09/11/19 13:15 10/11/19 13:14 Ondansetron HCl (Zofran) 4 mg Q6H PRN IVP Nausea & Vomiting 09/11/19 13:15 10/11/19 13:14 Piperacillin Sod/ Tazobactam Sod 3.375 gm/Dextrose 110 ml @ 27.5 mls/hr EVERY 8 HOURS IVPB 09/14/19 22:00 09/19/19 21:59 09/15/19 05:26 Sennosides (Senokot) 8.6 mg BIDPRN PRN ORAL Constipation 09/11/19 13:15 10/11/19 13:14 Zolpidem Tartrate (Ambien) 5 mg HSPRN PRN ORAL Insomnia 09/10/19 15:56 09/17/19 15:55 Susan Morales NP September 15, 2019 09:42
[2019-09-15 09:44] LABS: BASOPHILS % (AUTO) 0.9 % (0.0-2.0); HEMATOCRIT 30.3 % (37.0-47.0); HEMOGLOBIN 9.7 G/DL (12.0-16.0); LYMPHOCYTES % (AUTO) 18.9 % (20.0-45.0); MEAN CORPUSCULAR VOLUME 88 FL (80-99); MONOCYTES % (AUTO) 7.8 % (1.0-10.0); NEUTROPHILS % (AUTO) 70.4 % (45.0-75.0); PLATELET COUNT 667 K/UL (150-450); RED BLOOD COUNT 3.44 M/UL (4.20-5.40); RED CELL DISTRIBUTION WIDTH 16.7 % (11.6-14.8); WHITE BLOOD COUNT 9.6 K/UL (4.8-10.8)
[2019-09-15 09:48] LABS: ALANINE AMINOTRANSFERASE 25 U/L (12-78); ALBUMIN 2.1 G/DL (3.4-5.0); ALBUMIN/GLOBULIN RATIO 0.4 (1.0-2.7); ALKALINE PHOSPHATASE 69 U/L (46-116); ANION GAP 9 mmol/L (5-15); ASPARTATE AMINO TRANSFERASE 30 U/L (15-37); BILIRUBIN,TOTAL 0.2 MG/DL (0.2-1.0); BLOOD UREA NITROGEN 3 mg/dL (7-18); CALCIUM 8.7 MG/DL (8.5-10.1); CARBON DIOXIDE 29 MMOL/L (21-32); CHLORIDE 105 MMOL/L (98-107); CREATININE 0.8 MG/DL (0.55-1.30); POTASSIUM 3.3 MMOL/L (3.5-5.1); SODIUM 143 MMOL/L (136-145)
[2019-09-15] MEDS ORDERED: AUGMENTIN 875-1 EAC1 ORAL (10:58)
--- NOTE | 2019-09-15 11:01 | Discharge Instructions ---
Discharge Instructions Discharge Instructions Follow up with: dr Goyal as scheduled For Congestive Heart Failure Reminder Report to your physician any weight gain of 5 pounds or more in one week. Susan Morales NP September 15, 2019 11:00
--- NOTE | 2019-09-15 11:27 | NUR ---
NURSE NOTES: discharge instructions given to patient by Susan THOMPSON. Medication teaching given to patient by Susan THOMPSON. Patient is waiting for surgeon to give final discharge instructions later in the day. Patient is stable. All questions and concerns addressed at this time. Prescription is in chart, patient stated that she will fill medication at home pharmacy after discharging.
[2019-09-15 11:56] VITALS: BP 138/100
--- NOTE | 2019-09-15 15:06 | NUR ---
NURSE NOTES: Patient is discharged home as ordered. Stable. Denies pain or SOB. Patient was given thorough discharge instructions from Dr. Zheng. Patient verbalized understanding. Patient has written instructions to take home. Patient has prescriptions in hand and verbalized that she will fill medication at home pharmacy. Patient has all belongings. Surgical dressing c/d/i. Patient assisted outside by staff without incident. No IV access. Skin is c/d/i.
--- NOTE | 2019-09-16 12:20 | NUR ---
*-* INSURANCE *-* UPDATED CLINICALS NO DISCHARGE SUMMARY IN THE SYSTEM: PAUL FAX ALL CLINICALS TO [phone]
--- NOTE | 2019-09-17 11:15 | NUR ---
*-* NO DISCHARGE SUMMARY IN THE SYSTEM UNABLE TO FAX TO INSURANCE COMPANY *-*
--- NOTE | 2019-09-17 12:34 | Discharge Summary ---
Discharge Summary Discharge Summary _ DATE OF ADMISSION: 09/05/2019 DATE OF DISCHARGE: 09/15/2019 DISCHARGED BY: Dr. Goel REASON FOR ADMISSION: 44 years old female with past medical history of uterine fibroids, status post uterine artery embolization, status post myomectomy and hysteroscopy, rheumatoid arthritis, was sent to emergency room by her wrapper hand for evaluation due to fever, tachycardia and abnormal vaginal bleeding. Myomectomy was done last week. Patient was unable to tolerate MRI. Patient reported chills and fever and intermittent 5 out of 10 low back pain. She denied vaginal discharge. She reported nausea and one episode of nonbloody nonbilious vomiting along with non-bloody diarrhea . She reported some dysuria , but no hematuria. Upon evaluation vital signs revealed fever 102.9 ,tachycardia with heart rate 130; pulse oximetry was stable on room air. Laboratory work-up revealed leukocytosis ,hemoglobin 11.8 ,hematocrit 26.3. Neutrophils 90%. Potassium 3.4, otherwise stable renal parameters and electrolytes. CRP 5.6. Urinalysis revealed pyuria, moderate bacteria , +3 leukocyte esterase, +3 protein. Chest x-ray revealed no acute cardiopulmonary pathology. CT of the abdomen and pelvis revealed enlarged uterus with multiple large fibroids. Fluid within the colon and small bowel , could indicate a component of enteritis or diarrheal illness. In emergency department patient pancultured, started on IV fluids ad empiric antibiotics. Urine test was negative. Patient was swabbed for CoVID 19. CONSULTANTS: [facility] surgeon Dr. Zheng ID specialist Dr. Naranjo surgery Dr. Smith [facility]SE: Patient admitted to medical surgical floor. Patient initially was on isolation for suspected COVID-19 infection. Patient was on the IV fluids and empiric antibiotics. Initial sinus tachycardia resolved , probably was due to dehydration and fevers. Pain management was addressed. Hemoglobin and hematocrit were closely monitored with goal to keep hemoglobin above 7 . Patient started on Venofer. DVT and GI prophylaxis provided. Antiemetic provided as needed . Potassium was replaced . SARS-CoV-2 by PCR was negative. Isolation was discontinued. Blood culture revealed E. coli . Urine culture revealed E. coli. Repeated blood culture for clearance were negative. Nausea and vomiting resolved , possibly symptoms were due to mild enteritis. Stool for C difficile was negative. Repeated CXR was negative. Venous duplex bilateral lower extremity revealed no evidence of acute DVT. Patient received 5 days of IV Venofer. Prior to discharge hemoglobin 9.7, hematocrit 30.3. Patient continued to have intermittent high fevers and leukocytosis trending up. ID consult was requested. Repeated CT scan of the abdomen and pelvis revealed no evidence of abscess and no evidence of acute infection. Patient subsequently was taken on 09/10 for exploration of abdominal cavity and multiply myomectomy with lysis of adhesion . During surgery noted necrotic infected uterine myoma and extensive pelvic adhesions. Pathology of the uterine myoma revealed predominantly necrotic tissue with rare areas of viable leiomyoma. Postoperative course of recovery was stable. Pain management was addressed. Patient started on clear liquid diet and was advanced as tolerated. Frequent ambulation and incentive spirometry while in the bed was encouraged. Patient was able to tolerate solid diet. Tompkins catheter discontinued after the surgery. Patient voided without difficulty and had bowel movement. Pain was controlled. Fevers and leukocytosis resolved . Surgeon cleared for discharge. Patient was stable for discharge home on oral antibiotic/ Augmentin to complete the course. Patient to follow-up with surgeon as scheduled for postoperative visit and staple removal. FINAL DIAGNOSES: Sepsis (present on admission ) with E. coli bacteremia E. coli UTI Necrotic myoma Status post abdominal myomectomy Acute febrile illness Status post abdominal myomectomy 09/10 Sinus tachycardia- resolved Suspected COVID-19 infection - was ruled out Symptomatic uterine fibroids with history of recent myomectomy and prior uterine artery embolization Nausea vomiting and diarrhea-resolved Possible gastroenteritis - resolved Anemia Rheumatoid arthritis Mild hypokalemia - resolved DISCHARGE MEDICATIONS: See Medication Reconciliation list. DISCHARGE INSTRUCTIONS: Patient was discharged home. Patient to follow-up with [facility] surgeon as scheduled. Susan Morales NP September 17, 2019 12:34
== END 2019-09-15 15:27 | disposition home or self-care (01) | DRG 854 ==
LOC: EMR 14:39 → 4E 16:05 → EDBEDREQ 20:48 → 3E 09-08 16:43
PROC: 0DNW0ZZ Release Peritoneum, Open Approach (ICD-10-PCS; principal; 2019-09-11 10:30)
PROC: 0UB90ZZ Excision of Uterus, Open Approach (ICD-10-PCS; principal; 2019-09-11 10:30)
DX: A41.51 Sepsis due to Escherichia coli [E. coli] (principal); N39.0 Urinary tract infection, site not specified; E87.6 Hypokalemia; M06.9 Rheumatoid arthritis, unspecified; D25.9 Leiomyoma of uterus, unspecified; R00.0 Tachycardia, unspecified; K52.9 Noninfective gastroenteritis and colitis, unspecified; D64.9 Anemia, unspecified; Z88.8 Allergy status to other drugs, medicaments and biological substances; N73.6 Female pelvic peritoneal adhesions (postinfective)
CPT/HCPCS: 36415; 71045; 74177; 80048; 80053; 81003; 81025; 83605; 83735; 84260; 85007; 85025; 85379; 86140; 86850; 86900; 86901; 87040; 87070; 87075; 87086; 87181; 87205; 87324; 87635; 93005; 93970; 94003; 94150; 96361; 96365; 96367; 99285; J2180; J2250; J2405; J2710; J2795; J7030; J8499